=== PATIENT | female | born 1960 | race Caucasian/White ===

== ENCOUNTER 2021-12-06 13:50 | Inpatient (IN) | payer OTHER ==
[2021-12-06] MEDS ORDERED: LACTATED RINGERS SOLUTION 1000 ML INFUS.BAG IV ONE (15:30)
[2021-12-06 15:52] LABS: MCHC 32.3 g/dl (32.0-36.0); PLATELET COUNT 291 10^3/uL (134-434)
[2021-12-06 15:54] LABS: BASO % 0.3 % (0-2.0); EOS % 0.4 % (0-4.5); HEMATOCRIT 17.4 % (32.4-45.2); LYMPH % 6.4 % (8-40); MEAN CELL VOLUME 89.7 fl (80-96); MEAN PLT VOLUME 8.1 fl (7.5-11.1); MONO % 6.7 % (3.8-10.2); NEUT % 86.2 % (42.8-82.8); RBC 1.94 M/mm3 (3.60-5.2); WHITE BLOOD COUNT 17.7 K/mm3 (4.0-10.0)
[2021-12-06 15:58] LABS: INR 1.35 (0.83-1.09); PROTHROMBIN TIME (PATIENT) 15.6 SEC (9.7-13.0)
[2021-12-06 16:01] LABS: ACTIVATED PTT 30.2 SECONDS (25.2-36.5)
[2021-12-06 16:05] LABS: HEMOGLOBIN 5.6 GM/dL (10.7-15.3)
[2021-12-06 16:15] LABS: ALBUMIN 1.6 g/dl (3.4-5.0); CALCIUM 8.5 mg/dL (8.5-10.1)
[2021-12-06 16:16] LABS: MAGNESIUM 2.4 mg/dL (1.8-2.4)
[2021-12-06] MEDS ORDERED: POTASSIUM CHLORIDE TABS 20 MEQ TABLET.ER (FP) PO ONE ×3 (16:16→16:29)
[2021-12-06 16:18] LABS: CREATININE 3.7 mg/dL (0.55-1.3)
[2021-12-06 16:20] LABS: BILIRUBIN,TOTAL 0.6 mg/dL (0.2-1); TOT PROT 5.2 g/dl (6.4-8.2)
[2021-12-06] MEDS: ACETAMINOPHEN 325 MG TABLET (FP) PO PRN (22:53)
[2021-12-06 23:05] LABS: HEMATOCRIT 20.8 % (32.4-45.2); MCH 28.8 pg (25.7-33.7); MCHC 32.3 g/dl (32.0-36.0); MEAN CELL VOLUME 89.3 fl (80-96); MEAN PLT VOLUME 7.9 fl (7.5-11.1); PLATELET COUNT 294 10^3/uL (134-434); RBC 2.33 M/mm3 (3.60-5.2); RDW 17.7 % (11.6-15.6); WHITE BLOOD COUNT 19.1 K/mm3 (4.0-10.0)
[2021-12-06 23:09] LABS: HEMOGLOBIN 6.7 GM/dL (10.7-15.3)
[2021-12-07] MEDS ORDERED: SODIUM CHLORIDE 1,000 ML IV STA ×3 (02:00→04:38)
[2021-12-07 03:43] VITALS: BMI 28.5
[2021-12-07 04:02] LABS: HEMATOCRIT 18.9 % (32.4-45.2); MCH 29.2 pg (25.7-33.7); MCHC 32.4 g/dl (32.0-36.0); MEAN CELL VOLUME 90.1 fl (80-96); MEAN PLT VOLUME 7.9 fl (7.5-11.1); PLATELET COUNT 271 10^3/uL (134-434); RDW 18.4 % (11.6-15.6); WHITE BLOOD COUNT 18.3 K/mm3 (4.0-10.0)
[2021-12-07] MEDS ORDERED: MEROPENEM 1 GM in DEXTROSE 5%-WATER 100 ML IVPB ONE (04:23)
[2021-12-07 04:24] LABS: HEMOGLOBIN 6.1 GM/dL (10.7-15.3)
[2021-12-07 04:29] LABS: RETICULOCYTES 1.65 % (0.5-1.5)
[2021-12-07 05:37] LABS: ERYTHROCYTE SEDIMENTATION RATE > 140 mm/hr (0-30)
[2021-12-07] MEDS ORDERED: VANCOMYCIN PREMIX 1.5 GM 1,500 MG/300 ML BAG IVPB ONE (06:00)
[2021-12-07 06:30] LABS: CALCIUM 8.4 mg/dL (8.5-10.1)
[2021-12-07 06:31] LABS: BLOOD UREA NITROGEN 43.5 mg/dL (7-18); MAGNESIUM 2.2 mg/dL (1.8-2.4)
[2021-12-07] MEDS ORDERED: ONDANSETRON 4 MG/2 ML VIAL IVPUSH ONE (06:42)
[2021-12-07] MEDS ORDERED: AZTREONAM 1 GM VIAL (RESTRICTED TO ID) IVPB ONE (07:13)
[2021-12-07] MEDS ORDERED: SODIUM CHLORIDE IVPB ONE (07:30)
[2021-12-07] MEDS ORDERED: AZTREONAM IVPB ONE (07:30)
[2021-12-07 07:58] LABS: BASO % 0.2 % (0-2.0); EOS % 0.4 % (0-4.5); LYMPH % 6.3 % (8-40); MCH 29.9 pg (25.7-33.7); MCHC 32.5 g/dl (32.0-36.0); MEAN CELL VOLUME 91.9 fl (80-96); MEAN PLT VOLUME 8.2 fl (7.5-11.1); MONO % 6.4 % (3.8-10.2); NEUT % 86.7 % (42.8-82.8); PLATELET COUNT 298 10^3/uL (134-434); RBC 2.28 M/mm3 (3.60-5.2); RDW 18.6 % (11.6-15.6); WHITE BLOOD COUNT 18.7 K/mm3 (4.0-10.0)
[2021-12-07 08:13] LABS: ANISOCYTOSIS 0; MACROCYTOSIS 0
[2021-12-07] MEDS ORDERED: oxyCODONE HCL 5 MG TABLET PO PRN (08:25)
[2021-12-07 08:42] LABS: HEMOGLOBIN 6.8 GM/dL (10.7-15.3)
[2021-12-07] MEDS ORDERED: AZTREONAM 2 GM VIAL (RESTRICTED TO ID) ONE (09:06)
[2021-12-07] MEDS ORDERED: SODIUM CHLORIDE 100 ML IVPB ONE (09:06)
[2021-12-07] MEDS ORDERED: ALBUMIN HUMAN 5% 500 ML IV SOLUTION IV ONE (10:00)
[2021-12-07] MEDS ORDERED: FAMOTIDINE 20 MG TABLET PO SCH (10:00)
[2021-12-07] MEDS ORDERED: PANTOPRAZOLE SODIUM 40 MG VIAL IVPUSH ONE (10:45)
[2021-12-07] MEDS ORDERED: SODIUM CHLORIDE 250 ML IV PRN (14:00)
[2021-12-07] MEDS ORDERED: KETAMINE HCL 200 MG/20 ML VIAL IVPUSH ONE (14:30)
[2021-12-07] MEDS ORDERED: NOREPINEPHRINE BITARTRATE 16,000 MCG in SODIUM CHLORIDE 484 ML IV SCH (15:15)
[2021-12-07] MEDS: ACETAMINOPHEN 325 MG TABLET (FP) PO PRN (21:07)
[2021-12-07] MEDS: ESCITALOPRAM OXALATE 10 MG TABLET PO SCH (21:07)
[2021-12-07] MEDS: ROSUVASTATIN CA 10 MG TABLET PO SCH (21:07)
[2021-12-07] MEDS: QUEtiapine FUMARATE 200 MG TABLET PO SCH (21:39)
[2021-12-08 06:36] LABS: BASO % 0.2 % (0-2.0); EOS % 0.7 % (0-4.5); HEMATOCRIT 22.3 % (32.4-45.2); HEMOGLOBIN 7.4 GM/dL (10.7-15.3); LYMPH % 8.6 % (8-40); MCH 29.3 pg (25.7-33.7); MEAN CELL VOLUME 88.7 fl (80-96); MEAN PLT VOLUME 8.1 fl (7.5-11.1); NEUT % 82.5 % (42.8-82.8); PLATELET COUNT 269 10^3/uL (134-434); RBC 2.52 M/mm3 (3.60-5.2); WHITE BLOOD COUNT 15.5 K/mm3 (4.0-10.0)
[2021-12-08] MEDS: LEVOTHYROXINE NA 25 MCG TABLET (FP) PO SCH (06:41)
[2021-12-08 07:10] LABS: ALBUMIN 1.8 g/dl (3.4-5.0); BLOOD UREA NITROGEN 21.6 mg/dL (7-18); CALCIUM 8.3 mg/dL (8.5-10.1)
[2021-12-08 07:13] LABS: CREATININE 2.1 mg/dL (0.55-1.3); PHOSPHOROUS 1.7 mg/dL (2.5-4.9)
[2021-12-08 07:15] LABS: BILIRUBIN,TOTAL 0.4 mg/dL (0.2-1)
[2021-12-08] MEDS ORDERED: POTASSIUM CHLORIDE TABS 20 MEQ TABLET.ER (FP) PO ONE (08:23)
[2021-12-08] MEDS: CALCIUM ACETATE 667 MG CAPSULE (FP) PO SCH ×3 (09:26→17:46)
[2021-12-08] MEDS: POLYETHYLENE GLYCOL (HEALTHYLAX) 3350 17 GM PACKET PO SCH (09:27)
[2021-12-08] MEDS: ESCITALOPRAM OXALATE 10 MG TABLET PO SCH (09:27)
[2021-12-08] MEDS: MIDODRINE HCL 5 MG TABLET PO SCH ×3 (09:27→17:46)
[2021-12-08] MEDS ORDERED: AZTREONAM 2 GM VIAL (RESTRICTED TO ID) ONE (09:35)
[2021-12-08] MEDS ORDERED: DEXTROSE 5%-WATER 100 ML IVPB ONE (09:35)
[2021-12-08] MEDS: KCL 10 MEQ IVPB 10 MEQ/100 ML INFUS.BAG IVPB SCH ×3 (09:40→12:00)
[2021-12-08] MEDS: ACETAMINOPHEN 1000 MG/100 ML BAG IVPB PRN ×2 (09:40→21:09)
[2021-12-08] MEDS ORDERED: VANCOMYCIN 1 GM/200 ML PREMIX BAG IVPB ONE (10:00)
[2021-12-08] MEDS ORDERED: AZTREONAM 2 GM in DEXTROSE 5%-WATER 100 ML IVPB SCH (10:00)
[2021-12-08] MEDS ORDERED: POTASSIUM PHOSPHATE 30 MM in SODIUM CHLORIDE 250 ML IVPB ONE (10:15)
[2021-12-08] MEDS ORDERED: VANCOMYCIN 1 GM in D5W (PRE-DOCKED) 1,000 MG/250 ML IVPB ONE (13:47)
[2021-12-08] MEDS ORDERED: VANCOMYCIN 1,000 MG in DEXTROSE 5%-WATER - 250 ML IVPB ONE (14:15)
[2021-12-08 14:36] LABS: HEMOGLOBIN 8.3 GM/dL (10.7-15.3); MCH 29.8 pg (25.7-33.7); MCHC 33.4 g/dl (32.0-36.0); MEAN CELL VOLUME 89.1 fl (80-96); PLATELET COUNT 246 10^3/uL (134-434); RDW 17.1 % (11.6-15.6); WHITE BLOOD COUNT 14.8 K/mm3 (4.0-10.0)
[2021-12-08] MEDS ORDERED: SODIUM CHLORIDE 250 ML IV PRN (17:02)
[2021-12-08] MEDS: AMINO ACIDS/PROTEIN HYDROLYS 30 ML LIQUID.PKT PO SCH (17:46)
[2021-12-08] MEDS ORDERED: MELATONIN 5 MG TABLETS PO ONE (19:42)
[2021-12-08] MEDS: ROSUVASTATIN CA 10 MG TABLET PO SCH (21:10)
[2021-12-08] MEDS: QUEtiapine FUMARATE 200 MG TABLET PO SCH (21:10)
[2021-12-09 05:56] LABS: BASO % 0.2 % (0-2.0); EOS % 0.9 % (0-4.5); HEMATOCRIT 24.1 % (32.4-45.2); HEMOGLOBIN 8.1 GM/dL (10.7-15.3); MCH 29.9 pg (25.7-33.7); MCHC 33.5 g/dl (32.0-36.0); MEAN CELL VOLUME 89.1 fl (80-96); MEAN PLT VOLUME 7.8 fl (7.5-11.1); MONO % 7.9 % (3.8-10.2); PLATELET COUNT 242 10^3/uL (134-434); RDW 17.3 % (11.6-15.6)
[2021-12-09] MEDS: LEVOTHYROXINE NA 25 MCG TABLET (FP) PO SCH (06:13)
[2021-12-09 06:16] LABS: CALCIUM 7.9 mg/dL (8.5-10.1)
[2021-12-09 06:17] LABS: BLOOD UREA NITROGEN 30.4 mg/dL (7-18)
[2021-12-09 06:20] LABS: CREATININE 2.8 mg/dL (0.55-1.3); PHOSPHOROUS 3.3 mg/dL (2.5-4.9)
[2021-12-09] MEDS ORDERED: DEXMEDETOMIDINE HCL 200 MCG/2 ML IVPB ONE (07:33)
[2021-12-09] MEDS ORDERED: PROPOFOL 20 ML ONE ×2 (07:56)
[2021-12-09] MEDS ORDERED: EPOETIN ALFA-EPBX 10,000 UNIT/ML VIAL IVPUSH ONE (08:00)
[2021-12-09] MEDS: CALCIUM ACETATE 667 MG CAPSULE (FP) PO SCH ×3 (09:35→17:22)
[2021-12-09] MEDS: ESCITALOPRAM OXALATE 10 MG TABLET PO SCH (09:36)
[2021-12-09] MEDS: AMINO ACIDS/PROTEIN HYDROLYS 30 ML LIQUID.PKT PO SCH ×3 (09:36→17:22)
[2021-12-09] MEDS: POLYETHYLENE GLYCOL (HEALTHYLAX) 3350 17 GM PACKET PO SCH (09:36)
[2021-12-09] MEDS: MIDODRINE HCL 5 MG TABLET PO SCH ×3 (09:36→17:22)
[2021-12-09] MEDS ORDERED: AZTREONAM 2 GM in DEXTROSE 5%-WATER 100 ML IVPB SCH (10:00)
[2021-12-09] MEDS ORDERED: ASCORBIC ACID 500 MG TABLET (FP) PO SCH (10:00)
[2021-12-09] MEDS ORDERED: ONDANSETRON 4 MG/2 ML VIAL ONE (10:35)
[2021-12-09] MEDS ORDERED: ONDANSETRON 4 MG/2 ML VIAL IVPUSH ONE (10:36)
[2021-12-09] MEDS ORDERED: KETAMINE HCL 200 MG/20 ML VIAL ONE (11:08)
[2021-12-09] MEDS ORDERED: PHENYLEPHRINE HCL 10 MG/1 ML SINGLE DOSE VIAL ONE (11:52)
[2021-12-09] MEDS ORDERED: FENTANYL CITRATE/PF 50 MCG/ML VIAL ONE (13:01)
[2021-12-09] MEDS ORDERED: SODIUM CHLORIDE 250 ML IV PRN (13:19)
[2021-12-09] MEDS ORDERED: ACETAMINOPHEN 325 MG TABLET (FP) PO PRN ×2 (13:19→14:03)
[2021-12-09] MEDS ORDERED: oxyCODONE HCL 5 MG TABLET PO PRN (20:00)
[2021-12-09] MEDS: ROSUVASTATIN CA 10 MG TABLET PO SCH (21:31)
[2021-12-09] MEDS: QUEtiapine FUMARATE 200 MG TABLET PO SCH (21:32)
[2021-12-09] MEDS: oxyCODONE HCL 5 MG TABLET PO PRN (22:38)
[2021-12-10] MEDS: LEVOTHYROXINE NA 25 MCG TABLET (FP) PO SCH (06:07)
[2021-12-10 06:45] LABS: HEMATOCRIT 25.6 % (32.4-45.2); HEMOGLOBIN 8.5 GM/dL (10.7-15.3); MCH 29.7 pg (25.7-33.7); MCHC 33.3 g/dl (32.0-36.0); MEAN CELL VOLUME 89.1 fl (80-96); MEAN PLT VOLUME 7.8 fl (7.5-11.1); PLATELET COUNT 247 10^3/uL (134-434); RBC 2.88 M/mm3 (3.60-5.2); RDW 17.1 % (11.6-15.6); WHITE BLOOD COUNT 14.2 K/mm3 (4.0-10.0)
[2021-12-10 07:05] LABS: ALBUMIN 1.6 g/dl (3.4-5.0); BLOOD UREA NITROGEN 27.7 mg/dL (7-18)
[2021-12-10 07:08] LABS: CREATININE 2.1 mg/dL (0.55-1.3); PHOSPHOROUS 1.9 mg/dL (2.5-4.9)
[2021-12-10 07:09] LABS: TOT PROT 4.8 g/dl (6.4-8.2)
[2021-12-10 07:10] LABS: BILIRUBIN,TOTAL 0.3 mg/dL (0.2-1)
[2021-12-10] MEDS: CALCIUM ACETATE 667 MG CAPSULE (FP) PO SCH ×3 (08:29→17:35)
[2021-12-10] MEDS: AMINO ACIDS/PROTEIN HYDROLYS 30 ML LIQUID.PKT PO SCH ×3 (08:29→17:35)
[2021-12-10] MEDS: MIDODRINE HCL 5 MG TABLET PO SCH ×3 (09:19→17:35)
[2021-12-10] MEDS: ESCITALOPRAM OXALATE 10 MG TABLET PO SCH (09:19)
[2021-12-10] MEDS: ASCORBIC ACID 500 MG TABLET (FP) PO SCH (09:19)
[2021-12-10] MEDS: POLYETHYLENE GLYCOL (HEALTHYLAX) 3350 17 GM PACKET PO SCH (09:19)
[2021-12-10] MEDS ORDERED: ROSUVASTATIN CA 20 MG TABLET PO SCH (10:00)
[2021-12-10 10:12] LABS: ANISOCYTOSIS 1+; MACROCYTOSIS 0; OVALOCYTE 2+
[2021-12-10] MEDS: oxyCODONE HCL 5 MG TABLET PO PRN (21:27)
[2021-12-10] MEDS: QUEtiapine FUMARATE 200 MG TABLET PO SCH (21:28)
[2021-12-10] MEDS: ROSUVASTATIN CA 10 MG TABLET PO SCH (21:28)
[2021-12-10 21:33] LABS: EPI CELLS >36 /uL (0-25.1); HYALINE CASTS 19 /uL (0-3.1); PH,URINE 8.5 (5.0-8.0); URINE APPEARANCE CLOUDY; URINE BACTERIA 31 /uL (0-1359); URINE BILIRUBIN NEGATIVE (NEGATIVE); URINE COLOR YELLOW; URINE GLUCOSE (UA) TRACE (NEGATIVE); URINE KETONE NEGATIVE (NEGATIVE); URINE LEUK ESTERASE 3+ (NEGATIVE); URINE NITRITE NEGATIVE (NEGATIVE); URINE PROTEIN 2+ (NEGATIVE); URINE RBC 5 /uL (0-23.9); URINE UROBILINOGEN 0.2 mg/dL (0.2-1.0); URINE WBC 64 /uL (0-25.8)
[2021-12-10 22:31] LABS: YEAST NONE SEEN (NEGATIVE)
[2021-12-11] MEDS: LEVOTHYROXINE NA 25 MCG TABLET (FP) PO SCH (06:00)
[2021-12-11] MEDS: CALCIUM ACETATE 667 MG CAPSULE (FP) PO SCH ×3 (08:00→13:59)
[2021-12-11] MEDS: AMINO ACIDS/PROTEIN HYDROLYS 30 ML LIQUID.PKT PO SCH ×3 (08:00→13:59)
[2021-12-11] MEDS ORDERED: SODIUM CHLORIDE 250 ML IV PRN (09:41)
[2021-12-11] MEDS: MIDODRINE HCL 5 MG TABLET PO SCH ×2 (10:00→13:56)
[2021-12-11] MEDS ORDERED: EPOETIN ALFA-EPBX 10,000 UNIT/ML VIAL SQ ONE (10:30)
[2021-12-11] MEDS: POLYETHYLENE GLYCOL (HEALTHYLAX) 3350 17 GM PACKET PO SCH (11:27)
[2021-12-11] MEDS: ESCITALOPRAM OXALATE 10 MG TABLET PO SCH ×2 (11:28→13:56)
[2021-12-11] MEDS: ASCORBIC ACID 500 MG TABLET (FP) PO SCH ×2 (11:29→13:57)
[2021-12-11 16:51] VITALS: BP 128/65; PULSE 102; TEMP 98.5
== END 2021-12-11 15:00 | DRG 853 ==
LOC: JER 13:50 → JERBED 19:36 → J8W 12-07 02:47 → J2W 12-07 06:37
PROVIDERS: ADMIT Hospitalist; ATTEND Internal Medicine Pulmonary Disease
PROC: 30233N1 Transfusion of Nonautologous Red Blood Cells into Peripheral Vein, Percutaneous Approach (ICD-10-PCS; 2021-12-06)
PROC: 05HN33Z Insertion of Infusion Device into Left Internal Jugular Vein, Percutaneous Approach (ICD-10-PCS; principal; 2021-12-07)
PROC: B544ZZA Ultrasonography of Left Jugular Veins, Guidance (ICD-10-PCS; 2021-12-07)
PROC: 5A1D70Z Performance of Urinary Filtration, Intermittent, Less than 6 Hours Per Day (ICD-10-PCS; 2021-12-07)
PROC: 0JB70ZZ Excision of Back Subcutaneous Tissue and Fascia, Open Approach (ICD-10-PCS; 2021-12-09)
PROC: 2W15X6Z Compression of Back using Pressure Dressing (ICD-10-PCS; 2021-12-09)
PROC: 5A1D70Z Performance of Urinary Filtration, Intermittent, Less than 6 Hours Per Day (ICD-10-PCS; 2021-12-09)
PROC: 5A1D70Z Performance of Urinary Filtration, Intermittent, Less than 6 Hours Per Day (ICD-10-PCS; 2021-12-11)
DX: A41.89 Other specified sepsis (principal); R65.21 Severe sepsis with septic shock; N18.6 End stage renal disease; L89.513 Pressure ulcer of right ankle, stage 3; F31.89 Other bipolar disorder; G82.20 Paraplegia, unspecified; E46 Unspecified protein-calorie malnutrition; G37.3 Acute transverse myelitis in demyelinating disease of central nervous system; I12.0 Hypertensive chronic kidney disease with stage 5 chronic kidney disease or end stage renal disease; D64.9 Anemia, unspecified; L89.150 Pressure ulcer of sacral region, unstageable; J44.9 Chronic obstructive pulmonary disease, unspecified; E78.5 Hyperlipidemia, unspecified; K21.9 Gastro-esophageal reflux disease without esophagitis; E87.6 Hypokalemia; R50.9 Fever, unspecified; I95.9 Hypotension, unspecified; Z68.28 Body mass index [BMI] 28.0-28.9, adult; E88.09 Other disorders of plasma-protein metabolism, not elsewhere classified; Z99.2 Dependence on renal dialysis; B96.1 Klebsiella pneumoniae [K. pneumoniae] as the cause of diseases classified elsewhere; B96.20 Unspecified Escherichia coli [E. coli] as the cause of diseases classified elsewhere; B95.2 Enterococcus as the cause of diseases classified elsewhere; B95.7 Other staphylococcus as the cause of diseases classified elsewhere; L89.892 Pressure ulcer of other site, stage 2; L89.311 Pressure ulcer of right buttock, stage 1; L89.102 Pressure ulcer of unspecified part of back, stage 2
CPT/HCPCS: 36415; 36430; 71045-TC-FY; 80048; 80053; 81003; 82272; 82607; 82746; 82962; 83036; 83605; 83735; 84100; 84443; 84484; 85025; 85027; 85045; 85610; 85651; 85730; 86078; 86140; 86803; 86850; 86900; 86901; 86922; 87040; 87070; 87075; 87076; 87086; 87186; 87205; 87340; 88304-TC; 93005; 93010; 94760; 99291; C9803-CS; E0372; G0480; P9058; Q5106; U0003; U0005

== ENCOUNTER 2022-01-01 03:07 | Inpatient (IN) | payer OTHER ==
[2022-01-01 04:52] LABS: BASO % 0.3 % (0-2.0); EOS % 0.6 % (0-4.5); HEMATOCRIT 17.7 % (32.4-45.2); LYMPH % 11.4 % (8-40); MCH 28.9 pg (25.7-33.7); MCHC 32.1 g/dl (32.0-36.0); MEAN CELL VOLUME 89.9 fl (80-96); MEAN PLT VOLUME 7.6 fl (7.5-11.1); MONO % 7.9 % (3.8-10.2); NEUT % 79.8 % (42.8-82.8); PLATELET COUNT 371 10^3/uL (134-434); RBC 1.97 M/mm3 (3.60-5.2); RDW 16.8 % (11.6-15.6); WHITE BLOOD COUNT 12.8 K/mm3 (4.0-10.0)
[2022-01-01 05:03] LABS: INR 1.22 (0.83-1.09); PROTHROMBIN TIME (PATIENT) 14.1 SEC (9.7-13.0)
[2022-01-01 05:07] LABS: ACTIVATED PTT 30.7 SECONDS (25.2-36.5)
[2022-01-01 05:12] LABS: BLOOD UREA NITROGEN 36.4 mg/dL (7-18); CALCIUM 8.3 mg/dL (8.5-10.1)
[2022-01-01 05:13] LABS: ALBUMIN 1.5 g/dl (3.4-5.0); MAGNESIUM 2.1 mg/dL (1.8-2.4)
[2022-01-01 05:16] LABS: CREATININE 2.9 mg/dL (0.55-1.3); HEMOGLOBIN 5.7 GM/dL (10.7-15.3)
[2022-01-01 05:17] LABS: TOT PROT 5.1 g/dl (6.4-8.2)
[2022-01-01 05:18] LABS: BILIRUBIN,TOTAL 0.3 mg/dL (0.2-1)
[2022-01-01 05:23] LABS: N-TERMINAL BNP 4254.3 pg/ml (5-125)
[2022-01-01] MEDS ORDERED: SODIUM CHLORIDE 250 ML IV PRN (09:29)
[2022-01-01] MEDS ORDERED: EPOETIN ALFA-EPBX 10,000 UNIT/ML VIAL SQ ONE (09:29)
[2022-01-01 20:05] LABS: HEMATOCRIT 25.2 % (32.4-45.2); HEMOGLOBIN 8.4 GM/dL (10.7-15.3); MCH 29.1 pg (25.7-33.7); MCHC 33.2 g/dl (32.0-36.0); MEAN CELL VOLUME 87.7 fl (80-96); MEAN PLT VOLUME 7.7 fl (7.5-11.1); PLATELET COUNT 323 10^3/uL (134-434); RBC 2.87 M/mm3 (3.60-5.2); WHITE BLOOD COUNT 13.4 K/mm3 (4.0-10.0)
[2022-01-01 20:19] LABS: CALCIUM 8.3 mg/dL (8.5-10.1)
[2022-01-01 20:20] LABS: ALBUMIN 1.8 g/dl (3.4-5.0); BLOOD UREA NITROGEN 28.6 mg/dL (7-18)
[2022-01-01 20:23] LABS: CREATININE 2.3 mg/dL (0.55-1.3)
[2022-01-01 20:25] LABS: BILIRUBIN,TOTAL 0.4 mg/dL (0.2-1); TOT PROT 5.2 g/dl (6.4-8.2)
[2022-01-01] MEDS ORDERED: MIDODRINE HCL 5 MG TABLET PO SCH (22:00)
[2022-01-01] MEDS ORDERED: AMITRIPTYLINE HCL 10 MG TABLET PO SCH (22:00)
[2022-01-01] MEDS: ROSUVASTATIN CA 10 MG TABLET PO SCH (22:05)
[2022-01-02] MEDS ORDERED: ACETAMINOPHEN 325 MG TABLET (FP) PO ONE (06:17)
[2022-01-02] MEDS: LEVOTHYROXINE NA 25 MCG TABLET (FP) PO SCH (06:32)
[2022-01-02] MEDS: CALCIUM ACETATE 667 MG CAPSULE (FP) PO SCH ×3 (08:55→17:55)
[2022-01-02 09:40] LABS: BASO % 0.6 % (0-2.0); EOS % 0.6 % (0-4.5); HEMOGLOBIN 9.3 GM/dL (10.7-15.3); LYMPH % 8.8 % (8-40); MCH 29.1 pg (25.7-33.7); MCHC 33.3 g/dl (32.0-36.0); MEAN CELL VOLUME 87.2 fl (80-96); MONO % 6.5 % (3.8-10.2); NEUT % 83.5 % (42.8-82.8); PLATELET COUNT 357 10^3/uL (134-434); RDW 16.2 % (11.6-15.6); WHITE BLOOD COUNT 15.9 K/mm3 (4.0-10.0)
[2022-01-02] MEDS: FAMOTIDINE 20 MG TABLET PO SCH (09:41)
[2022-01-02] MEDS: ESCITALOPRAM OXALATE 10 MG TABLET PO SCH (09:41)
[2022-01-02 09:53] LABS: ALBUMIN 1.7 g/dl (3.4-5.0); BLOOD UREA NITROGEN 24.8 mg/dL (7-18); CALCIUM 8.5 mg/dL (8.5-10.1); MAGNESIUM 2.2 mg/dL (1.8-2.4)
[2022-01-02 09:56] LABS: CREATININE 2.5 mg/dL (0.55-1.3); PHOSPHOROUS 2.4 mg/dL (2.5-4.9)
[2022-01-02 09:58] LABS: BILIRUBIN,TOTAL 0.4 mg/dL (0.2-1); TOT PROT 5.4 g/dl (6.4-8.2)
[2022-01-02] MEDS ORDERED: CALCIUM ACETATE 667 MG CAPSULE (FP) PO SCH (10:00)
[2022-01-02] MEDS ORDERED: QUEtiapine FUMARATE 300 MG TABLET PO SCH (10:00)
[2022-01-02] MEDS ORDERED: MIDODRINE HCL 5 MG TABLET PO SCH (10:00)
[2022-01-02] MEDS ORDERED: LACTULOSE 20 GM/30 ML UDC (FOR ORAL USE ONLY) PO SCH (10:00)
[2022-01-02] MEDS: CYANOCOBALAMIN 1,000 MCG TABLET (FP) PO SCH (11:57)
[2022-01-02] MEDS ORDERED: oxyCODONE HCL 5 MG TABLET PO PRN (13:02)
[2022-01-02] MEDS: MIDODRINE HCL 5 MG TABLET PO SCH ×2 (14:31→18:46)
[2022-01-02] MEDS ORDERED: QUEtiapine FUMARATE 200 MG TABLET PO SCH (22:00)
[2022-01-02] MEDS: ROSUVASTATIN CA 10 MG TABLET PO SCH (22:02)
[2022-01-02] MEDS: AMITRIPTYLINE HCL 10 MG TABLET PO SCH (22:02)
[2022-01-02] MEDS: SENNOSIDES 8.6MG TABLET (FP) PO SCH (22:02)
[2022-01-03] MEDS: LEVOTHYROXINE NA 25 MCG TABLET (FP) PO SCH (06:02)
[2022-01-03] MEDS: CALCIUM ACETATE 667 MG CAPSULE (FP) PO SCH ×3 (08:10→17:51)
[2022-01-03] MEDS: FAMOTIDINE 20 MG TABLET PO SCH (10:04)
[2022-01-03] MEDS: ESCITALOPRAM OXALATE 10 MG TABLET PO SCH (10:04)
[2022-01-03] MEDS: THIAMINE HCL 100 MG TABLET (FP) PO SCH (10:04)
[2022-01-03] MEDS: ZINC SULFATE 220 MG CAPSULE (FP) PO SCH (10:04)
[2022-01-03] MEDS: MIDODRINE HCL 5 MG TABLET PO SCH ×3 (10:05→17:51)
[2022-01-03] MEDS: CYANOCOBALAMIN 1,000 MCG TABLET (FP) PO SCH (10:07)
[2022-01-03] MEDS ORDERED: ACETAMINOPHEN 325 MG TABLET (FP) PO PRN (18:04)
[2022-01-03] MEDS ORDERED: VANCOMYCIN/WATER FOR INJ (PEG) 1,000 MG/200 ML BAG IVPB ONE (20:40)
[2022-01-03] MEDS ORDERED: GENTAMICIN 80 MG PREMIXED IVPB 80 MG/100 ML BAG IVPB ONE (20:45)
[2022-01-03] MEDS ORDERED: QUEtiapine FUMARATE 100 MG TABLET (FP) ONE (21:14)
[2022-01-03] MEDS: AMITRIPTYLINE HCL 10 MG TABLET PO SCH (21:43)
[2022-01-03] MEDS: ROSUVASTATIN CA 10 MG TABLET PO SCH (21:43)
[2022-01-03] MEDS: QUEtiapine FUMARATE 300 MG TABLET PO SCH (21:44)
[2022-01-03] MEDS: SENNOSIDES 8.6MG TABLET (FP) PO SCH (21:44)
[2022-01-04] MEDS: LEVOTHYROXINE NA 25 MCG TABLET (FP) PO SCH (06:05)
[2022-01-04] MEDS: CALCIUM ACETATE 667 MG CAPSULE (FP) PO SCH ×3 (08:02→17:35)
[2022-01-04 09:02] LABS: EPI CELLS 31 /uL (0-25.1); HYALINE CASTS 0 /uL (0-3.1); PH,URINE >= 9.0 (5.0-8.0); URINE APPEARANCE CLOUDY; URINE BACTERIA 563 /uL (0-1359); URINE BILIRUBIN NEGATIVE (NEGATIVE); URINE COLOR YELLOW; URINE GLUCOSE (UA) 1+ (NEGATIVE); URINE KETONE NEGATIVE (NEGATIVE); URINE LEUK ESTERASE TRACE (NEGATIVE); URINE NITRITE NEGATIVE (NEGATIVE); URINE PROTEIN 2+ (NEGATIVE); URINE RBC 118 /uL (0-23.9); URINE UROBILINOGEN 0.2 mg/dL (0.2-1.0); URINE WBC 17 /uL (0-25.8)
[2022-01-04] MEDS: ZINC SULFATE 220 MG CAPSULE (FP) PO SCH (10:02)
[2022-01-04] MEDS: FAMOTIDINE 20 MG TABLET PO SCH (10:02)
[2022-01-04] MEDS: THIAMINE HCL 100 MG TABLET (FP) PO SCH (10:02)
[2022-01-04] MEDS: ESCITALOPRAM OXALATE 10 MG TABLET PO SCH (10:02)
[2022-01-04] MEDS: CYANOCOBALAMIN 1,000 MCG TABLET (FP) PO SCH (10:03)
[2022-01-04] MEDS: MIDODRINE HCL 5 MG TABLET PO SCH ×3 (10:03→17:34)
[2022-01-04] MEDS ORDERED: SODIUM CHLORIDE 250 ML IV PRN (10:22)
[2022-01-04 10:59] LABS: BASO % 0.3 % (0-2.0); HEMATOCRIT 24.5 % (32.4-45.2); HEMOGLOBIN 8.2 GM/dL (10.7-15.3); LYMPH % 9.3 % (8-40); MCH 29.4 pg (25.7-33.7); MCHC 33.4 g/dl (32.0-36.0); MEAN PLT VOLUME 7.4 fl (7.5-11.1); MONO % 7.7 % (3.8-10.2); NEUT % 81.7 % (42.8-82.8); PLATELET COUNT 336 10^3/uL (134-434); RBC 2.79 M/mm3 (3.60-5.2); RDW 16.3 % (11.6-15.6); WHITE BLOOD COUNT 13.5 K/mm3 (4.0-10.0)
[2022-01-04 11:28] LABS: ALBUMIN 1.6 g/dl (3.4-5.0); BLOOD UREA NITROGEN 49.7 mg/dL (7-18); CALCIUM 8.3 mg/dL (8.5-10.1)
[2022-01-04 11:29] LABS: MAGNESIUM 2.1 mg/dL (1.8-2.4)
[2022-01-04 11:31] LABS: CREATININE 3.8 mg/dL (0.55-1.3); PHOSPHOROUS 2.4 mg/dL (2.5-4.9)
[2022-01-04 11:32] LABS: BILIRUBIN,TOTAL 0.4 mg/dL (0.2-1); TOT PROT 4.8 g/dl (6.4-8.2)
[2022-01-04] MEDS ORDERED: EPOETIN ALFA-EPBX 10,000 UNIT/ML VIAL IVPUSH ONE (15:00)
[2022-01-04] MEDS: GENTAMICIN 80 MG PREMIXED IVPB 80 MG/100 ML BAG IVPB ONE (17:34)
[2022-01-04] MEDS ORDERED: QUEtiapine FUMARATE 100 MG TABLET (FP) ONE (22:13)
[2022-01-04] MEDS: QUEtiapine FUMARATE 300 MG TABLET PO SCH (22:19)
[2022-01-04] MEDS: ROSUVASTATIN CA 10 MG TABLET PO SCH (22:19)
[2022-01-04] MEDS: AMITRIPTYLINE HCL 10 MG TABLET PO SCH (22:19)
[2022-01-04] MEDS: SENNOSIDES 8.6MG TABLET (FP) PO SCH (22:19)
[2022-01-05] MEDS: LEVOTHYROXINE NA 25 MCG TABLET (FP) PO SCH (06:21)
[2022-01-05] MEDS: CALCIUM ACETATE 667 MG CAPSULE (FP) PO SCH ×3 (08:27→18:06)
[2022-01-05] MEDS: VITAMIN B COMP W-C 1 EA TABLET (NEPHRO-VITE) PO SCH (10:24)
[2022-01-05] MEDS: ZINC SULFATE 220 MG CAPSULE (FP) PO SCH (10:24)
[2022-01-05] MEDS: ESCITALOPRAM OXALATE 10 MG TABLET PO SCH (10:24)
[2022-01-05] MEDS: FAMOTIDINE 20 MG TABLET PO SCH (10:24)
[2022-01-05] MEDS: THIAMINE HCL 100 MG TABLET (FP) PO SCH (10:24)
[2022-01-05] MEDS: MIDODRINE HCL 5 MG TABLET PO SCH ×3 (10:27→18:06)
[2022-01-05] MEDS: CYANOCOBALAMIN 1,000 MCG TABLET (FP) PO SCH (10:27)
[2022-01-05 11:30] LABS: HEMATOCRIT 28.5 % (32.4-45.2); HEMOGLOBIN 9.3 GM/dL (10.7-15.3); MCH 29.6 pg (25.7-33.7); MCHC 32.5 g/dl (32.0-36.0); MEAN CELL VOLUME 90.9 fl (80-96); MEAN PLT VOLUME 8.2 fl (7.5-11.1); PLATELET COUNT 302 10^3/uL (134-434); RBC 3.14 M/mm3 (3.60-5.2); RDW 16.6 % (11.6-15.6); WHITE BLOOD COUNT 14.9 K/mm3 (4.0-10.0)
[2022-01-05 11:40] LABS: ALBUMIN 1.8 g/dl (3.4-5.0); BLOOD UREA NITROGEN 30.4 mg/dL (7-18); CALCIUM 8.9 mg/dL (8.5-10.1); MAGNESIUM 2.2 mg/dL (1.8-2.4)
[2022-01-05 11:43] LABS: CREATININE 2.7 mg/dL (0.55-1.3); PHOSPHOROUS 1.9 mg/dL (2.5-4.9)
[2022-01-05 11:45] LABS: BILIRUBIN,TOTAL 0.4 mg/dL (0.2-1); TOT PROT 5.5 g/dl (6.4-8.2)
[2022-01-05] MEDS ORDERED: VANCOMYCIN/WATER FOR INJ (PEG) 1,000 MG/200 ML BAG IVPB ONE (12:01)
[2022-01-05] MEDS ORDERED: cefTRIAXone SODIUM 1 GM VIAL ONE (14:06)
[2022-01-05] MEDS ORDERED: DEXTROSE 5%-WATER - 50 ML IVPB ONE (14:06)
[2022-01-05] MEDS: CEFTRIAXONE 1 GM in DEXTROSE 5%-WATER - 50 ML IVPB SCH (14:07)
[2022-01-05] MEDS: SENNOSIDES 8.6MG TABLET (FP) PO SCH (21:54)
[2022-01-05] MEDS: QUEtiapine FUMARATE 300 MG TABLET PO SCH (21:54)
[2022-01-05] MEDS: AMITRIPTYLINE HCL 10 MG TABLET PO SCH (21:54)
[2022-01-05] MEDS: ROSUVASTATIN CA 10 MG TABLET PO SCH (21:54)
[2022-01-06] MEDS: LEVOTHYROXINE NA 25 MCG TABLET (FP) PO SCH (06:40)
[2022-01-06] MEDS: CALCIUM ACETATE 667 MG CAPSULE (FP) PO SCH ×3 (08:26→18:08)
[2022-01-06] MEDS ORDERED: DEXTROSE 5%-WATER - 50 ML IVPB ONE (09:43)
[2022-01-06] MEDS ORDERED: cefTRIAXone SODIUM 1 GM VIAL ONE (09:43)
[2022-01-06] MEDS: CEFTRIAXONE 1 GM in DEXTROSE 5%-WATER - 50 ML IVPB SCH (09:44)
[2022-01-06] MEDS: ZINC SULFATE 220 MG CAPSULE (FP) PO SCH (10:32)
[2022-01-06] MEDS: VITAMIN B COMP W-C 1 EA TABLET (NEPHRO-VITE) PO SCH (10:32)
[2022-01-06] MEDS: MIDODRINE HCL 5 MG TABLET PO SCH ×3 (10:32→18:08)
[2022-01-06] MEDS: ESCITALOPRAM OXALATE 10 MG TABLET PO SCH (10:32)
[2022-01-06] MEDS: FAMOTIDINE 20 MG TABLET PO SCH (10:32)
[2022-01-06] MEDS: THIAMINE HCL 100 MG TABLET (FP) PO SCH (10:33)
[2022-01-06] MEDS: CYANOCOBALAMIN 1,000 MCG TABLET (FP) PO SCH (10:33)
[2022-01-06 10:39] LABS: HEMATOCRIT 23.7 % (32.4-45.2); HEMOGLOBIN 7.7 GM/dL (10.7-15.3); MCH 29.1 pg (25.7-33.7); MCHC 32.6 g/dl (32.0-36.0); MEAN CELL VOLUME 89.4 fl (80-96); MEAN PLT VOLUME 7.1 fl (7.5-11.1); PLATELET COUNT 297 10^3/uL (134-434); RBC 2.65 M/mm3 (3.60-5.2); RDW 16.6 % (11.6-15.6); WHITE BLOOD COUNT 11.6 K/mm3 (4.0-10.0)
[2022-01-06 11:09] LABS: CALCIUM 8.4 mg/dL (8.5-10.1)
[2022-01-06 11:12] LABS: CREATININE 3.1 mg/dL (0.55-1.3)
[2022-01-06 11:13] LABS: PHOSPHOROUS 2.2 mg/dL (2.5-4.9)
[2022-01-06] MEDS ORDERED: SODIUM CHLORIDE 250 ML IV PRN (14:45)
[2022-01-06] MEDS ORDERED: EPOETIN ALFA-EPBX 10,000 UNIT/ML VIAL IVPUSH ONE (15:30)
[2022-01-06] MEDS ORDERED: GENTAMICIN 80 MG PREMIXED IVPB 80 MG/100 ML BAG IVPB ONE (16:26)
[2022-01-06] MEDS ORDERED: GENTAMICIN IVPB ONE (17:00)
[2022-01-06] MEDS ORDERED: SODIUM CHLORIDE IVPB ONE (17:00)
[2022-01-06] MEDS ORDERED: QUEtiapine FUMARATE 100 MG TABLET (FP) ONE (21:15)
[2022-01-06] MEDS: QUEtiapine FUMARATE 300 MG TABLET PO SCH (21:27)
[2022-01-06] MEDS: ROSUVASTATIN CA 10 MG TABLET PO SCH (21:27)
[2022-01-06] MEDS: AMITRIPTYLINE HCL 10 MG TABLET PO SCH (21:27)
[2022-01-06] MEDS: SENNOSIDES 8.6MG TABLET (FP) PO SCH (21:27)
[2022-01-07] MEDS: LEVOTHYROXINE NA 25 MCG TABLET (FP) PO SCH (06:08)
[2022-01-07] MEDS: CALCIUM ACETATE 667 MG CAPSULE (FP) PO SCH ×3 (07:51→16:53)
[2022-01-07] MEDS: THIAMINE HCL 100 MG TABLET (FP) PO SCH (09:18)
[2022-01-07] MEDS: VITAMIN B COMP W-C 1 EA TABLET (NEPHRO-VITE) PO SCH (09:18)
[2022-01-07] MEDS: FAMOTIDINE 20 MG TABLET PO SCH (09:18)
[2022-01-07] MEDS: ESCITALOPRAM OXALATE 10 MG TABLET PO SCH (09:18)
[2022-01-07] MEDS: ZINC SULFATE 220 MG CAPSULE (FP) PO SCH (09:18)
[2022-01-07] MEDS: MIDODRINE HCL 5 MG TABLET PO SCH ×3 (09:19→17:42)
[2022-01-07] MEDS: CYANOCOBALAMIN 1,000 MCG TABLET (FP) PO SCH (09:20)
[2022-01-07] MEDS ORDERED: SUCCINYLCHOLINE CHLORIDE 200 MG/10 ML SYRINGE ONE (09:24)
[2022-01-07] MEDS ORDERED: PROPOFOL 20 ML ONE ×2 (09:26)
[2022-01-07] MEDS ORDERED: KETAMINE HCL 200 MG/20 ML VIAL ONE (09:26)
[2022-01-07] MEDS ORDERED: DEXTROSE 5%-WATER - 50 ML IVPB ONE (09:28)
[2022-01-07] MEDS ORDERED: cefTRIAXone SODIUM 1 GM VIAL ONE (09:28)
[2022-01-07] MEDS: CEFTRIAXONE 1 GM in DEXTROSE 5%-WATER - 50 ML IVPB SCH (09:29)
[2022-01-07] MEDS ORDERED: LIDOCAINE HCL 1%, 10 MG/ML (20ML VIAL) ONE (09:31)
[2022-01-07] MEDS ORDERED: ACETAMINOPHEN 325 MG TABLET (FP) PO PRN (12:35)
[2022-01-07] MEDS ORDERED: ONDANSETRON 4 MG/2 ML VIAL ONE (12:43)
[2022-01-07] MEDS ORDERED: ONDANSETRON 4 MG/2 ML VIAL IVPUSH ONE (13:03)
[2022-01-07] MEDS ORDERED: VANCOMYCIN/WATER FOR INJ (PEG) 1,000 MG/200 ML BAG IVPB ONE (13:03)
[2022-01-07 17:53] LABS: HEMATOCRIT 23.8 % (32.4-45.2); HEMOGLOBIN 7.7 GM/dL (10.7-15.3); MCH 29.3 pg (25.7-33.7); MCHC 32.6 g/dl (32.0-36.0); MEAN CELL VOLUME 89.8 fl (80-96); MEAN PLT VOLUME 7.4 fl (7.5-11.1); PLATELET COUNT 281 10^3/uL (134-434); RBC 2.65 M/mm3 (3.60-5.2); RDW 16.5 % (11.6-15.6); WHITE BLOOD COUNT 12.1 K/mm3 (4.0-10.0)
[2022-01-07 18:12] LABS: CALCIUM 8.1 mg/dL (8.5-10.1)
[2022-01-07 18:13] LABS: MAGNESIUM 1.9 mg/dL (1.8-2.4)
[2022-01-07 18:16] LABS: CREATININE 2.8 mg/dL (0.55-1.3); PHOSPHOROUS 2.2 mg/dL (2.5-4.9)
[2022-01-07] MEDS ORDERED: QUEtiapine FUMARATE 100 MG TABLET (FP) ONE (21:01)
[2022-01-07] MEDS: SENNOSIDES 8.6MG TABLET (FP) PO SCH (21:31)
[2022-01-07] MEDS: ROSUVASTATIN CA 10 MG TABLET PO SCH (21:31)
[2022-01-07] MEDS: AMITRIPTYLINE HCL 10 MG TABLET PO SCH (21:32)
[2022-01-07] MEDS: QUEtiapine FUMARATE 300 MG TABLET PO SCH (21:33)
[2022-01-07 21:44] VITALS: BMI 28.8
[2022-01-08] MEDS: LEVOTHYROXINE NA 25 MCG TABLET (FP) PO SCH (06:39)
[2022-01-08] MEDS: CALCIUM ACETATE 667 MG CAPSULE (FP) PO SCH ×4 (07:51→18:20)
[2022-01-08] MEDS: AMINO ACIDS/PROTEIN HYDROLYS 30 ML LIQUID.PKT PO SCH ×3 (07:51→18:03)
[2022-01-08] MEDS ORDERED: SODIUM CHLORIDE 250 ML IV PRN (07:52)
[2022-01-08 09:51] LABS: HEMATOCRIT 21.9 % (32.4-45.2); MCH 29.2 pg (25.7-33.7); MCHC 31.9 g/dl (32.0-36.0); MEAN CELL VOLUME 91.3 fl (80-96); MEAN PLT VOLUME 8.4 fl (7.5-11.1); PLATELET COUNT 290 10^3/uL (134-434); RDW 17.3 % (11.6-15.6)
[2022-01-08] MEDS ORDERED: EPOETIN ALFA-EPBX 4,000 UNIT/ML VIAL IVPUSH ONE (10:00)
[2022-01-08] MEDS ORDERED: EPOETIN ALFA-EPBX 10,000 UNIT/ML VIAL IVPUSH ONE (10:45)
[2022-01-08 10:54] LABS: BLOOD UREA NITROGEN 54.5 mg/dL (7-18)
[2022-01-08 10:55] LABS: MAGNESIUM 1.8 mg/dL (1.8-2.4)
[2022-01-08 10:57] LABS: CREATININE 3.4 mg/dL (0.55-1.3); PHOSPHOROUS 2.8 mg/dL (2.5-4.9)
[2022-01-08] MEDS ORDERED: DEXTROSE 5%-WATER - 50 ML IVPB ONE (12:09)
[2022-01-08] MEDS ORDERED: cefTRIAXone SODIUM 1 GM VIAL ONE (12:09)
[2022-01-08] MEDS: FAMOTIDINE 20 MG TABLET PO SCH (12:11)
[2022-01-08] MEDS: THIAMINE HCL 100 MG TABLET (FP) PO SCH (12:11)
[2022-01-08] MEDS: ESCITALOPRAM OXALATE 10 MG TABLET PO SCH (12:12)
[2022-01-08] MEDS: ZINC SULFATE 220 MG CAPSULE (FP) PO SCH (12:12)
[2022-01-08] MEDS: VITAMIN B COMP W-C 1 EA TABLET (NEPHRO-VITE) PO SCH (12:12)
[2022-01-08] MEDS: CYANOCOBALAMIN 1,000 MCG TABLET (FP) PO SCH (12:13)
[2022-01-08] MEDS: MIDODRINE HCL 5 MG TABLET PO SCH ×3 (12:13→18:21)
[2022-01-08] MEDS: CEFTRIAXONE 1 GM in DEXTROSE 5%-WATER - 50 ML IVPB SCH (12:13)
[2022-01-08] MEDS: oxyCODONE HCL 5 MG TABLET PO PRN ×2 (12:47→21:18)
[2022-01-08] MEDS ORDERED: GENTAMICIN 80 MG PREMIXED IVPB 80 MG/100 ML BAG IVPB ONE (15:30)
[2022-01-08] MEDS ORDERED: ACETAMINOPHEN 325 MG TABLET (FP) PO PRN (18:15)
[2022-01-08] MEDS: AMITRIPTYLINE HCL 10 MG TABLET PO SCH (21:19)
[2022-01-08] MEDS: ROSUVASTATIN CA 10 MG TABLET PO SCH (21:19)
[2022-01-08] MEDS: QUEtiapine FUMARATE 300 MG TABLET PO SCH (21:19)
[2022-01-08] MEDS: SENNOSIDES 8.6MG TABLET (FP) PO SCH (21:19)
[2022-01-09] MEDS: LEVOTHYROXINE NA 25 MCG TABLET (FP) PO SCH (06:04)
[2022-01-09] MEDS: FAMOTIDINE 20 MG TABLET PO SCH (09:08)
[2022-01-09] MEDS: CALCIUM ACETATE 667 MG CAPSULE (FP) PO SCH ×3 (09:08→16:57)
[2022-01-09] MEDS: ESCITALOPRAM OXALATE 10 MG TABLET PO SCH (09:08)
[2022-01-09] MEDS: VITAMIN B COMP W-C 1 EA TABLET (NEPHRO-VITE) PO SCH (09:08)
[2022-01-09] MEDS: AMINO ACIDS/PROTEIN HYDROLYS 30 ML LIQUID.PKT PO SCH ×2 (09:08→16:57)
[2022-01-09] MEDS: ZINC SULFATE 220 MG CAPSULE (FP) PO SCH (09:08)
[2022-01-09] MEDS: THIAMINE HCL 100 MG TABLET (FP) PO SCH (09:08)
[2022-01-09] MEDS: CYANOCOBALAMIN 1,000 MCG TABLET (FP) PO SCH (09:09)
[2022-01-09] MEDS: MIDODRINE HCL 5 MG TABLET PO SCH ×3 (09:09→17:00)
[2022-01-09] MEDS ORDERED: cefTRIAXone SODIUM 1 GM VIAL ONE (09:16)
[2022-01-09] MEDS ORDERED: DEXTROSE 5%-WATER - 50 ML IVPB ONE (09:16)
[2022-01-09] MEDS: CEFTRIAXONE 1 GM in DEXTROSE 5%-WATER - 50 ML IVPB SCH (09:23)
[2022-01-09] MEDS: oxyCODONE HCL 5 MG TABLET PO PRN (09:28)
[2022-01-09] MEDS ORDERED: DAPTOMYCIN 320 MG in SODIUM CHLORIDE 50 ML IVPB ONE (15:30)
[2022-01-09] MEDS ORDERED: QUEtiapine FUMARATE 100 MG TABLET (FP) ONE (22:10)
[2022-01-09] MEDS: QUEtiapine FUMARATE 300 MG TABLET PO SCH (22:36)
[2022-01-09] MEDS: ROSUVASTATIN CA 10 MG TABLET PO SCH (22:36)
[2022-01-09] MEDS: AMITRIPTYLINE HCL 10 MG TABLET PO SCH (22:36)
[2022-01-09] MEDS: SENNOSIDES 8.6MG TABLET (FP) PO SCH (22:36)
[2022-01-10] MEDS: LEVOTHYROXINE NA 25 MCG TABLET (FP) PO SCH (06:53)
[2022-01-10] MEDS: AMINO ACIDS/PROTEIN HYDROLYS 30 ML LIQUID.PKT PO SCH ×2 (07:57→16:56)
[2022-01-10] MEDS: CALCIUM ACETATE 667 MG CAPSULE (FP) PO SCH ×3 (07:57→16:56)
[2022-01-10 09:32] LABS: BASO % 0.6 % (0-2.0); EOS % 1.2 % (0-4.5); HEMATOCRIT 26.8 % (32.4-45.2); HEMOGLOBIN 8.9 GM/dL (10.7-15.3); LYMPH % 13.6 % (8-40); MCHC 33.4 g/dl (32.0-36.0); MEAN CELL VOLUME 89.9 fl (80-96); MEAN PLT VOLUME 7.8 fl (7.5-11.1); MONO % 6.6 % (3.8-10.2); PLATELET COUNT 292 10^3/uL (134-434); RBC 2.98 M/mm3 (3.60-5.2); RDW 16.3 % (11.6-15.6); WHITE BLOOD COUNT 12.7 K/mm3 (4.0-10.0)
[2022-01-10 10:01] LABS: CALCIUM 8.7 mg/dL (8.5-10.1)
[2022-01-10 10:02] LABS: BLOOD UREA NITROGEN 40.2 mg/dL (7-18); MAGNESIUM 2.1 mg/dL (1.8-2.4)
[2022-01-10 10:05] LABS: PHOSPHOROUS 3.4 mg/dL (2.5-4.9)
[2022-01-10 10:06] LABS: CREATININE 3.1 mg/dL (0.55-1.3)
[2022-01-10] MEDS: ESCITALOPRAM OXALATE 10 MG TABLET PO SCH (10:14)
[2022-01-10] MEDS: ZINC SULFATE 220 MG CAPSULE (FP) PO SCH (10:14)
[2022-01-10] MEDS: MIDODRINE HCL 5 MG TABLET PO SCH ×3 (10:14→17:18)
[2022-01-10] MEDS: CYANOCOBALAMIN 1,000 MCG TABLET (FP) PO SCH (10:15)
[2022-01-10] MEDS: THIAMINE HCL 100 MG TABLET (FP) PO SCH (10:15)
[2022-01-10] MEDS: VITAMIN B COMP W-C 1 EA TABLET (NEPHRO-VITE) PO SCH (10:15)
[2022-01-10] MEDS: FAMOTIDINE 20 MG TABLET PO SCH (10:15)
[2022-01-10] MEDS ORDERED: cefTRIAXone SODIUM 1 GM VIAL ONE (10:21)
[2022-01-10] MEDS ORDERED: DEXTROSE 5%-WATER - 50 ML IVPB ONE (10:21)
[2022-01-10] MEDS: CEFTRIAXONE 1 GM in DEXTROSE 5%-WATER - 50 ML IVPB SCH (10:41)
[2022-01-10] MEDS ORDERED: GENTAMICIN 80 MG PREMIXED IVPB 80 MG/100 ML BAG IVPB ONE (16:00)
[2022-01-10] MEDS ORDERED: SODIUM CHLORIDE 250 ML IV PRN (16:20)
[2022-01-10] MEDS ORDERED: QUEtiapine FUMARATE 100 MG TABLET (FP) ONE (23:41)
[2022-01-10] MEDS: SENNOSIDES 8.6MG TABLET (FP) PO SCH (23:42)
[2022-01-10] MEDS: ROSUVASTATIN CA 10 MG TABLET PO SCH (23:42)
[2022-01-10] MEDS: QUEtiapine FUMARATE 300 MG TABLET PO SCH (23:42)
[2022-01-10] MEDS: AMITRIPTYLINE HCL 10 MG TABLET PO SCH (23:42)
[2022-01-11] MEDS: LEVOTHYROXINE NA 25 MCG TABLET (FP) PO SCH (07:01)
[2022-01-11 09:22] LABS: WHITE BLOOD COUNT 13.8 K/mm3 (4.0-10.0)
[2022-01-11 09:23] LABS: HEMATOCRIT 27.4 % (32.4-45.2); HEMOGLOBIN 8.9 GM/dL (10.7-15.3); MCH 29.8 pg (25.7-33.7); MCHC 32.6 g/dl (32.0-36.0); MEAN CELL VOLUME 91.4 fl (80-96); MEAN PLT VOLUME 7.6 fl (7.5-11.1); PLATELET COUNT 286 10^3/uL (134-434); RDW 17.1 % (11.6-15.6)
[2022-01-11] MEDS: AMINO ACIDS/PROTEIN HYDROLYS 30 ML LIQUID.PKT PO SCH ×2 (09:37→18:27)
[2022-01-11] MEDS: CALCIUM ACETATE 667 MG CAPSULE (FP) PO SCH ×3 (09:37→18:27)
[2022-01-11 09:40] LABS: BLOOD UREA NITROGEN 51.7 mg/dL (7-18); CALCIUM 8.5 mg/dL (8.5-10.1); MAGNESIUM 2.2 mg/dL (1.8-2.4)
[2022-01-11 09:43] LABS: PHOSPHOROUS 4.2 mg/dL (2.5-4.9)
[2022-01-11 09:44] LABS: CREATININE 3.5 mg/dL (0.55-1.3)
[2022-01-11] MEDS: MIDODRINE HCL 5 MG TABLET PO SCH ×4 (10:00→18:37)
[2022-01-11] MEDS ORDERED: cefTRIAXone SODIUM 1 GM VIAL ONE (12:00)
[2022-01-11] MEDS ORDERED: DEXTROSE 5%-WATER - 50 ML IVPB ONE (12:00)
[2022-01-11] MEDS ORDERED: EPOETIN ALFA-EPBX 10,000 UNIT/ML VIAL IVPUSH ONE (12:00)
[2022-01-11] MEDS: CEFTRIAXONE 1 GM in DEXTROSE 5%-WATER - 50 ML IVPB SCH (13:13)
[2022-01-11] MEDS: FAMOTIDINE 20 MG TABLET PO SCH (13:13)
[2022-01-11] MEDS: ESCITALOPRAM OXALATE 10 MG TABLET PO SCH (13:13)
[2022-01-11] MEDS: CYANOCOBALAMIN 1,000 MCG TABLET (FP) PO SCH (13:14)
[2022-01-11] MEDS: ZINC SULFATE 220 MG CAPSULE (FP) PO SCH (13:14)
[2022-01-11] MEDS: VITAMIN B COMP W-C 1 EA TABLET (NEPHRO-VITE) PO SCH (13:14)
[2022-01-11] MEDS: THIAMINE HCL 100 MG TABLET (FP) PO SCH (13:14)
[2022-01-11] MEDS ORDERED: DAPTOMYCIN 320 MG in SODIUM CHLORIDE 50 ML IVPB ONE (15:30)
[2022-01-11] MEDS ORDERED: QUEtiapine FUMARATE 100 MG TABLET (FP) ONE (21:47)
[2022-01-11] MEDS: AMITRIPTYLINE HCL 10 MG TABLET PO SCH ×2 (21:51→21:54)
[2022-01-11] MEDS: SENNOSIDES 8.6MG TABLET (FP) PO SCH ×2 (21:51→21:55)
[2022-01-11] MEDS: ROSUVASTATIN CA 10 MG TABLET PO SCH ×2 (21:51→21:54)
[2022-01-11] MEDS: QUEtiapine FUMARATE 300 MG TABLET PO SCH ×2 (21:51→21:55)
[2022-01-12 05:38] VITALS: RESP 18
[2022-01-12] MEDS: LEVOTHYROXINE NA 25 MCG TABLET (FP) PO SCH (06:32)
[2022-01-12] MEDS: CALCIUM ACETATE 667 MG CAPSULE (FP) PO SCH ×3 (08:18→17:29)
[2022-01-12] MEDS: AMINO ACIDS/PROTEIN HYDROLYS 30 ML LIQUID.PKT PO SCH ×2 (08:18→17:29)
[2022-01-12 09:31] LABS: HEMATOCRIT 27.4 % (32.4-45.2); MCH 29.7 pg (25.7-33.7); MCHC 32.9 g/dl (32.0-36.0); MEAN CELL VOLUME 90.1 fl (80-96); MEAN PLT VOLUME 7.5 fl (7.5-11.1); PLATELET COUNT 279 10^3/uL (134-434); RBC 3.04 M/mm3 (3.60-5.2); RDW 16.8 % (11.6-15.6); WHITE BLOOD COUNT 10.6 K/mm3 (4.0-10.0)
[2022-01-12] MEDS: MIDODRINE HCL 5 MG TABLET PO SCH ×3 (10:04→17:29)
[2022-01-12] MEDS: THIAMINE HCL 100 MG TABLET (FP) PO SCH (10:04)
[2022-01-12] MEDS: ZINC SULFATE 220 MG CAPSULE (FP) PO SCH (10:04)
[2022-01-12] MEDS: FAMOTIDINE 20 MG TABLET PO SCH (10:04)
[2022-01-12] MEDS: CYANOCOBALAMIN 1,000 MCG TABLET (FP) PO SCH (10:04)
[2022-01-12] MEDS: oxyCODONE HCL 5 MG TABLET PO PRN (10:04)
[2022-01-12 10:05] LABS: CALCIUM 8.3 mg/dL (8.5-10.1)
[2022-01-12] MEDS: VITAMIN B COMP W-C 1 EA TABLET (NEPHRO-VITE) PO SCH (10:05)
[2022-01-12] MEDS: ESCITALOPRAM OXALATE 10 MG TABLET PO SCH (10:05)
[2022-01-12 10:09] LABS: CREATININE 2.3 mg/dL (0.55-1.3); PHOSPHOROUS 2.8 mg/dL (2.5-4.9)
[2022-01-12 10:10] LABS: BILIRUBIN,TOTAL 0.3 mg/dL (0.2-1)
[2022-01-12 10:21] LABS: BLOOD UREA NITROGEN 25.5 mg/dL (7-18)
[2022-01-12] MEDS: CEFTRIAXONE 1 GM in DEXTROSE 5%-WATER - 50 ML IVPB SCH (10:50)
[2022-01-12] MEDS ORDERED: GENTAMICIN 80 MG PREMIXED IVPB 80 MG/100 ML BAG IVPB ONE (13:23)
[2022-01-12] MEDS ORDERED: QUEtiapine FUMARATE 100 MG TABLET (FP) ONE (21:58)
[2022-01-12] MEDS: QUEtiapine FUMARATE 300 MG TABLET PO SCH ×2 (22:13→22:26)
[2022-01-12] MEDS: SENNOSIDES 8.6MG TABLET (FP) PO SCH ×2 (22:13→22:27)
[2022-01-12] MEDS: AMITRIPTYLINE HCL 10 MG TABLET PO SCH ×2 (22:13→22:27)
[2022-01-12] MEDS: ROSUVASTATIN CA 10 MG TABLET PO SCH ×2 (22:13→22:27)
[2022-01-13] MEDS: LEVOTHYROXINE NA 25 MCG TABLET (FP) PO SCH (06:43)
[2022-01-13] MEDS: AMINO ACIDS/PROTEIN HYDROLYS 30 ML LIQUID.PKT PO SCH ×2 (08:29→17:16)
[2022-01-13] MEDS: CALCIUM ACETATE 667 MG CAPSULE (FP) PO SCH ×4 (08:29→17:12)
[2022-01-13] MEDS ORDERED: SODIUM CHLORIDE 250 ML IV PRN (08:49)
[2022-01-13] MEDS ORDERED: EPOETIN ALFA-EPBX 10,000 UNIT/ML VIAL SQ ONE (09:30)
[2022-01-13 10:02] LABS: HEMATOCRIT 28.6 % (32.4-45.2); HEMOGLOBIN 9.4 GM/dL (10.7-15.3); MCH 29.8 pg (25.7-33.7); MCHC 32.8 g/dl (32.0-36.0); MEAN CELL VOLUME 90.9 fl (80-96); MEAN PLT VOLUME 7.5 fl (7.5-11.1); PLATELET COUNT 287 10^3/uL (134-434); RBC 3.15 M/mm3 (3.60-5.2); RDW 17.2 % (11.6-15.6); WHITE BLOOD COUNT 10.5 K/mm3 (4.0-10.0)
[2022-01-13 10:30] LABS: MAGNESIUM 2.2 mg/dL (1.8-2.4)
[2022-01-13 10:34] LABS: TOT PROT 4.9 g/dl (6.4-8.2)
[2022-01-13 10:41] LABS: BILIRUBIN,TOTAL 0.4 mg/dL (0.2-1); BLOOD UREA NITROGEN 35.7 mg/dL (7-18); CALCIUM 8.4 mg/dL (8.5-10.1); PHOSPHOROUS 3.6 mg/dL (2.5-4.9)
[2022-01-13] MEDS: ESCITALOPRAM OXALATE 10 MG TABLET PO SCH (12:31)
[2022-01-13] MEDS: FAMOTIDINE 20 MG TABLET PO SCH (12:32)
[2022-01-13] MEDS: THIAMINE HCL 100 MG TABLET (FP) PO SCH (12:32)
[2022-01-13] MEDS: MIDODRINE HCL 5 MG TABLET PO SCH ×3 (12:33→17:12)
[2022-01-13] MEDS: CYANOCOBALAMIN 1,000 MCG TABLET (FP) PO SCH (12:33)
[2022-01-13] MEDS: ZINC SULFATE 220 MG CAPSULE (FP) PO SCH (12:34)
[2022-01-13] MEDS: VITAMIN B COMP W-C 1 EA TABLET (NEPHRO-VITE) PO SCH (12:34)
[2022-01-13] MEDS: CEFTRIAXONE 1 GM in DEXTROSE 5%-WATER - 50 ML IVPB SCH (13:11)
[2022-01-13] MEDS: SENNOSIDES 8.6MG TABLET (FP) PO SCH (21:22)
[2022-01-13] MEDS: AMITRIPTYLINE HCL 10 MG TABLET PO SCH (21:22)
[2022-01-13] MEDS: ROSUVASTATIN CA 10 MG TABLET PO SCH (21:22)
[2022-01-13] MEDS: QUEtiapine FUMARATE 300 MG TABLET PO SCH (21:22)
[2022-01-14 03:06] VITALS: BP 148/73; PULSE 87; TEMP 99.9
[2022-01-14] MEDS: LEVOTHYROXINE NA 25 MCG TABLET (FP) PO SCH (06:32)
[2022-01-14] MEDS: ESCITALOPRAM OXALATE 10 MG TABLET PO SCH (09:39)
[2022-01-14] MEDS: THIAMINE HCL 100 MG TABLET (FP) PO SCH (09:39)
[2022-01-14] MEDS: CYANOCOBALAMIN 1,000 MCG TABLET (FP) PO SCH (09:39)
[2022-01-14] MEDS: FAMOTIDINE 20 MG TABLET PO SCH (09:39)
[2022-01-14] MEDS: AMINO ACIDS/PROTEIN HYDROLYS 30 ML LIQUID.PKT PO SCH (09:39)
[2022-01-14] MEDS: MIDODRINE HCL 5 MG TABLET PO SCH ×2 (09:39→14:21)
[2022-01-14] MEDS: CALCIUM ACETATE 667 MG CAPSULE (FP) PO SCH ×2 (09:39→12:30)
[2022-01-14] MEDS: ZINC SULFATE 220 MG CAPSULE (FP) PO SCH (09:39)
[2022-01-14] MEDS: VITAMIN B COMP W-C 1 EA TABLET (NEPHRO-VITE) PO SCH (09:39)
== END 2022-01-14 14:44 | DRG 673 ==
LOC: JER 03:07 → JERBED 03:30 → J6S 21:54
PROVIDERS: ADMIT Internal Medicine; ATTEND Internal Medicine
PROC: 30233N1 Transfusion of Nonautologous Red Blood Cells into Peripheral Vein, Percutaneous Approach (ICD-10-PCS; principal; 2022-01-01)
PROC: 5A1D70Z Performance of Urinary Filtration, Intermittent, Less than 6 Hours Per Day (ICD-10-PCS; 2022-01-01)
PROC: 5A1D70Z Performance of Urinary Filtration, Intermittent, Less than 6 Hours Per Day (ICD-10-PCS; 2022-01-04)
PROC: 5A1D70Z Performance of Urinary Filtration, Intermittent, Less than 6 Hours Per Day (ICD-10-PCS; 2022-01-06)
PROC: 0JB70ZZ Excision of Back Subcutaneous Tissue and Fascia, Open Approach (ICD-10-PCS; 2022-01-07)
PROC: 0QB10ZZ Excision of Sacrum, Open Approach (ICD-10-PCS; 2022-01-07)
PROC: 5A1D70Z Performance of Urinary Filtration, Intermittent, Less than 6 Hours Per Day (ICD-10-PCS; 2022-01-08)
PROC: 2W15X6Z Compression of Back using Pressure Dressing (ICD-10-PCS; 2022-01-10)
PROC: 5A1D70Z Performance of Urinary Filtration, Intermittent, Less than 6 Hours Per Day (ICD-10-PCS; 2022-01-11)
PROC: 5A1D70Z Performance of Urinary Filtration, Intermittent, Less than 6 Hours Per Day (ICD-10-PCS; 2022-01-13)
DX: I12.0 Hypertensive chronic kidney disease with stage 5 chronic kidney disease or end stage renal disease (principal); L89.154 Pressure ulcer of sacral region, stage 4; N18.6 End stage renal disease; G82.20 Paraplegia, unspecified; G95.9 Disease of spinal cord, unspecified; N39.0 Urinary tract infection, site not specified; E78.5 Hyperlipidemia, unspecified; K21.9 Gastro-esophageal reflux disease without esophagitis; F31.9 Bipolar disorder, unspecified; J44.9 Chronic obstructive pulmonary disease, unspecified; R32 Unspecified urinary incontinence; L89.150 Pressure ulcer of sacral region, unstageable; R50.9 Fever, unspecified; D63.1 Anemia in chronic kidney disease; D72.829 Elevated white blood cell count, unspecified; E11.22 Type 2 diabetes mellitus with diabetic chronic kidney disease; B96.1 Klebsiella pneumoniae [K. pneumoniae] as the cause of diseases classified elsewhere; E88.81 Metabolic syndrome and other insulin resistance; Z99.2 Dependence on renal dialysis; Z79.4 Long term (current) use of insulin; Z88.0 Allergy status to penicillin; E03.9 Hypothyroidism, unspecified
CPT/HCPCS: 36415; 36430; 71045-TC-FY; 80048; 80053; 81003; 82272; 82550; 82728; 82962; 83540; 83550; 83605; 83735; 83880; 84100; 84443; 84484; 85025; 85027; 85610; 85651; 85730; 86803; 86850; 86900; 86901; 86922; 87040; 87070; 87075; 87086; 87184; 87186; 87205; 87340; 88304-TC; 88311-TC; 93005; 93010; 94760; 97162-GP; 99285-25; C9803-CS; G0480; J0878; P9058; Q5106; U0003; U0005

== ENCOUNTER 2022-01-31 00:02 | Inpatient (IN) | payer OTHER ==
[2022-01-31] MEDS ORDERED: LACTATED RINGERS SOLUTION 1000 ML INFUS.BAG IV ONE (00:49)
[2022-01-31] MEDS ORDERED: HALOPERIDOL LACTATE 5 MG/ML IM ONE (01:28)
[2022-01-31] MEDS ORDERED: HALOPERIDOL LACTATE 5 MG/ML ONE (01:28)
[2022-01-31] MEDS ORDERED: SODIUM CHLORIDE 0.9% 500 ML INFUS.BAG IV ONE ×2 (02:09→05:55)
[2022-01-31 02:21] LABS: BASO % 0.3 % (0-2.0); EOS % 0.3 % (0-4.5); HEMATOCRIT 21.9 % (32.4-45.2); HEMOGLOBIN 7.3 GM/dL (10.7-15.3); LYMPH % 7.8 % (8-40); MCH 30.1 pg (25.7-33.7); MCHC 33.2 g/dl (32.0-36.0); MEAN CELL VOLUME 90.4 fl (80-96); MEAN PLT VOLUME 7.3 fl (7.5-11.1); MONO % 6.7 % (3.8-10.2); NEUT % 84.9 % (42.8-82.8); PLATELET COUNT 247 10^3/uL (134-434); RBC 2.42 M/mm3 (3.60-5.2)
[2022-01-31 02:41] LABS: BLOOD UREA NITROGEN 47.4 mg/dL (7-18); CALCIUM 8.5 mg/dL (8.5-10.1)
[2022-01-31 02:42] LABS: ALBUMIN 1.6 g/dl (3.4-5.0); MAGNESIUM 2.1 mg/dL (1.8-2.4)
[2022-01-31 02:44] LABS: PHOSPHOROUS 2.6 mg/dL (2.5-4.9)
[2022-01-31 02:45] LABS: CREATININE 3.4 mg/dL (0.55-1.3)
[2022-01-31 02:46] LABS: BILIRUBIN,TOTAL 0.3 mg/dL (0.2-1); TOT PROT 5.2 g/dl (6.4-8.2)
[2022-01-31 02:56] LABS: ACTIVATED PTT 29.2 SECONDS (25.2-36.5); INR 1.1 (0.83-1.09); PROTHROMBIN TIME (PATIENT) 12.7 SEC (9.7-13.0)
[2022-01-31] MEDS ORDERED: SODIUM CHLORIDE 500 ML IV STA (06:36)
[2022-01-31] MEDS: INSULIN SLIDING SCALE (NOVOLOG) 1 VIAL SQ SCH ×4 (08:00→22:44)
[2022-01-31 08:52] LABS: HEMATOCRIT 18.8 % (32.4-45.2); MCH 30.4 pg (25.7-33.7); MCHC 33.3 g/dl (32.0-36.0); MEAN CELL VOLUME 91.4 fl (80-96); MEAN PLT VOLUME 7.3 fl (7.5-11.1); PLATELET COUNT 243 10^3/uL (134-434); RBC 2.06 M/mm3 (3.60-5.2); WHITE BLOOD COUNT 9.8 K/mm3 (4.0-10.0)
[2022-01-31 08:57] LABS: HEMOGLOBIN 6.3 GM/dL (10.7-15.3)
[2022-01-31 09:12] LABS: CALCIUM 7.9 mg/dL (8.5-10.1)
[2022-01-31 09:13] LABS: ALBUMIN 1.5 g/dl (3.4-5.0); MAGNESIUM 2.2 mg/dL (1.8-2.4)
[2022-01-31 09:15] LABS: PHOSPHOROUS 2.5 mg/dL (2.5-4.9)
[2022-01-31 09:16] LABS: CREATININE 3.5 mg/dL (0.55-1.3)
[2022-01-31 09:17] LABS: BILIRUBIN,TOTAL 0.3 mg/dL (0.2-1); TOT PROT 4.6 g/dl (6.4-8.2)
[2022-01-31] MEDS ORDERED: FAMOTIDINE 20 MG TABLET ONE (11:27)
[2022-01-31] MEDS ORDERED: LEVOTHYROXINE NA 25 MCG TABLET (FP) ONE (11:27)
[2022-01-31] MEDS ORDERED: ESCITALOPRAM OXALATE 10 MG TABLET ONE (11:27)
[2022-01-31] MEDS: LEVOTHYROXINE NA 25 MCG TABLET (FP) PO SCH (11:35)
[2022-01-31] MEDS: FAMOTIDINE 20 MG TABLET PO SCH (11:35)
[2022-01-31] MEDS: ESCITALOPRAM OXALATE 10 MG TABLET PO SCH (11:35)
[2022-01-31] MEDS ORDERED: QUEtiapine FUMARATE 100 MG TABLET (FP) ONE (22:34)
[2022-01-31] MEDS ORDERED: SENNOSIDES 8.6MG TABLET (FP) PO ONE (22:34)
[2022-01-31] MEDS: AMITRIPTYLINE HCL 10 MG TABLET PO SCH (22:44)
[2022-01-31] MEDS: QUEtiapine FUMARATE 300 MG TABLET PO SCH (22:45)
[2022-01-31] MEDS: SENNOSIDES 8.6MG TABLET (FP) PO SCH (22:45)
[2022-02-01] MEDS ORDERED: SODIUM CHLORIDE 250 ML IV STA (03:05)
[2022-02-01] MEDS ORDERED: LACTATED RINGERS SOLUTION 1000 ML INFUS.BAG IV ONE (05:43)
[2022-02-01] MEDS: LEVOTHYROXINE NA 25 MCG TABLET (FP) PO SCH (06:30)
[2022-02-01] MEDS: INSULIN SLIDING SCALE (NOVOLOG) 1 VIAL SQ SCH ×4 (06:36→21:52)
[2022-02-01] MEDS: FAMOTIDINE 20 MG TABLET PO SCH (10:46)
[2022-02-01] MEDS: ESCITALOPRAM OXALATE 10 MG TABLET PO SCH (10:46)
[2022-02-01 13:07] VITALS: BMI 27.3
[2022-02-01 20:05] LABS: BASO % 0.3 % (0-2.0); EOS % 1.3 % (0-4.5); HEMATOCRIT 21.1 % (32.4-45.2); LYMPH % 9.6 % (8-40); MCH 30.2 pg (25.7-33.7); MCHC 32.9 g/dl (32.0-36.0); MEAN CELL VOLUME 91.7 fl (80-96); MEAN PLT VOLUME 7.3 fl (7.5-11.1); MONO % 8.3 % (3.8-10.2); NEUT % 80.5 % (42.8-82.8); PLATELET COUNT 296 10^3/uL (134-434); RDW 17.3 % (11.6-15.6); WHITE BLOOD COUNT 10.3 K/mm3 (4.0-10.0)
[2022-02-01 20:38] LABS: HEMOGLOBIN 6.9 GM/dL (10.7-15.3)
[2022-02-01] MEDS ORDERED: QUEtiapine FUMARATE 100 MG TABLET (FP) ONE (21:03)
[2022-02-01] MEDS: SENNOSIDES 8.6MG TABLET (FP) PO SCH (21:40)
[2022-02-01] MEDS: QUEtiapine FUMARATE 300 MG TABLET PO SCH (21:59)
[2022-02-01] MEDS: AMITRIPTYLINE HCL 10 MG TABLET PO SCH (23:12)
[2022-02-02] MEDS ORDERED: ACETAMINOPHEN 325 MG TABLET (FP) PO ONE ×2 (00:40→01:39)
[2022-02-02] MEDS: INSULIN SLIDING SCALE (NOVOLOG) 1 VIAL SQ SCH ×4 (06:32→22:13)
[2022-02-02] MEDS: LEVOTHYROXINE NA 25 MCG TABLET (FP) PO SCH (06:39)
[2022-02-02 08:11] LABS: BASO % 0.6 % (0-2.0); EOS % 1.3 % (0-4.5); HEMATOCRIT 24.2 % (32.4-45.2); HEMOGLOBIN 7.9 GM/dL (10.7-15.3); LYMPH % 17.1 % (8-40); MCH 30.9 pg (25.7-33.7); MCHC 32.8 g/dl (32.0-36.0); MEAN CELL VOLUME 94.1 fl (80-96); MEAN PLT VOLUME 7.5 fl (7.5-11.1); MONO % 9.7 % (3.8-10.2); NEUT % 71.3 % (42.8-82.8); PLATELET COUNT 260 10^3/uL (134-434); RBC 2.57 M/mm3 (3.60-5.2); RDW 16.8 % (11.6-15.6); WHITE BLOOD COUNT 9.7 K/mm3 (4.0-10.0)
[2022-02-02 09:05] LABS: ALBUMIN 1.6 g/dl (3.4-5.0); BLOOD UREA NITROGEN 69.1 mg/dL (7-18); CALCIUM 8.3 mg/dL (8.5-10.1); MAGNESIUM 2.5 mg/dL (1.8-2.4)
[2022-02-02 09:07] LABS: BILIRUBIN,TOTAL 0.3 mg/dL (0.2-1); CREATININE 4.5 mg/dL (0.55-1.3); TOT PROT 4.7 g/dl (6.4-8.2)
[2022-02-02] MEDS: FAMOTIDINE 20 MG TABLET PO SCH (10:34)
[2022-02-02] MEDS: ESCITALOPRAM OXALATE 10 MG TABLET PO SCH (10:34)
[2022-02-02] MEDS: COLLAGENASE CLOSTRIDIUM HIST. 30 GRAMS TUBE TP SCH (11:24)
[2022-02-02] MEDS ORDERED: SODIUM CHLORIDE 250 ML IV PRN (15:00)
[2022-02-02] MEDS ORDERED: EPOETIN ALFA-EPBX 10,000 UNIT/ML VIAL IVPUSH ONE (15:00)
[2022-02-02 15:35] LABS: EPI CELLS >36 /uL (0-25.1); HYALINE CASTS 4 /uL (0-3.1); PH,URINE 7.5 (5.0-8.0); URINE APPEARANCE TURBID; URINE BACTERIA 1793 /uL (0-1359); URINE BILIRUBIN NEGATIVE (NEGATIVE); URINE COLOR YELLOW; URINE GLUCOSE (UA) TRACE (NEGATIVE); URINE KETONE NEGATIVE (NEGATIVE); URINE LEUK ESTERASE 3+ (NEGATIVE); URINE NITRITE NEGATIVE (NEGATIVE); URINE PROTEIN 2+ (NEGATIVE); URINE UROBILINOGEN 0.2 mg/dL (0.2-1.0); URINE WBC 11941 /uL (0-25.8)
[2022-02-02 15:48] LABS: URINE RBC 42 /uL (0-23.9); YEAST NEGATIVE (NEGATIVE)
[2022-02-02] MEDS: AMINO ACIDS/PROTEIN HYDROLYS 30 ML LIQUID.PKT PO SCH (17:40)
[2022-02-02] MEDS ORDERED: QUEtiapine FUMARATE 100 MG TABLET (FP) ONE (21:29)
[2022-02-02] MEDS ORDERED: HEPARIN NA (PORCINE) 5,000 UNITS/ML 1ML VIAL SQ SCH (22:00)
[2022-02-02] MEDS: SENNOSIDES 8.6MG TABLET (FP) PO SCH (22:08)
[2022-02-02] MEDS: QUEtiapine FUMARATE 300 MG TABLET PO SCH (22:10)
[2022-02-02] MEDS: AMITRIPTYLINE HCL 10 MG TABLET PO SCH (22:11)
[2022-02-03] MEDS ORDERED: ACETAMINOPHEN 325 MG TABLET (FP) PO ONE (00:58)
[2022-02-03] MEDS ORDERED: VANCOMYCIN/WATER 1,250 MG/250 ML BAG IVPB ONE (01:02)
[2022-02-03] MEDS ORDERED: VANCOMYCIN/WATER 1250 MG 1,250 MG/250 ML BAG IVPB ONE (01:15)
[2022-02-03] MEDS: INSULIN SLIDING SCALE (NOVOLOG) 1 VIAL SQ SCH ×4 (07:00→22:08)
[2022-02-03] MEDS: LEVOTHYROXINE NA 25 MCG TABLET (FP) PO SCH (07:01)
[2022-02-03] MEDS: AMINO ACIDS/PROTEIN HYDROLYS 30 ML LIQUID.PKT PO SCH ×3 (09:33→17:50)
[2022-02-03] MEDS ORDERED: SODIUM CHLORIDE 250 ML IV PRN (10:04)
[2022-02-03] MEDS ORDERED: EPOETIN ALFA-EPBX 10,000 UNIT/ML VIAL SQ ONE (10:04)
[2022-02-03 10:22] LABS: BASO % 0.6 % (0-2.0); EOS % 1.2 % (0-4.5); HEMATOCRIT 27.4 % (32.4-45.2); HEMOGLOBIN 9.3 GM/dL (10.7-15.3); LYMPH % 11.2 % (8-40); MCH 30.6 pg (25.7-33.7); MCHC 33.8 g/dl (32.0-36.0); MEAN CELL VOLUME 90.7 fl (80-96); MEAN PLT VOLUME 7.7 fl (7.5-11.1); MONO % 9.3 % (3.8-10.2); NEUT % 77.7 % (42.8-82.8); PLATELET COUNT 250 10^3/uL (134-434); RBC 3.02 M/mm3 (3.60-5.2); RDW 17.2 % (11.6-15.6); WHITE BLOOD COUNT 13.6 K/mm3 (4.0-10.0)
[2022-02-03] MEDS ORDERED: GENTAMICIN 80 MG PREMIXED IVPB 80 MG/100 ML BAG IVPB SCH (11:00)
[2022-02-03] MEDS ORDERED: DAPTOMYCIN 500 MG in SODIUM CHLORIDE 50 ML IVPB ONE (11:00)
[2022-02-03] MEDS: ESCITALOPRAM OXALATE 10 MG TABLET PO SCH (11:22)
[2022-02-03] MEDS: COLLAGENASE CLOSTRIDIUM HIST. 30 GRAMS TUBE TP SCH (11:23)
[2022-02-03] MEDS: FAMOTIDINE 20 MG TABLET PO SCH (11:23)
[2022-02-03] MEDS ORDERED: ONDANSETRON 4 MG/2 ML VIAL IVPUSH PRN ×2 (13:42→17:35)
[2022-02-03] MEDS ORDERED: PROPOFOL 40 ML ONE (13:50)
[2022-02-03] MEDS ORDERED: ROCURONIUM BROMIDE 50 MG/5 ML SYRINGE ONE (13:51)
[2022-02-03] MEDS ORDERED: NOREPINEPHRINE BITARTRATE 4 MG/4 ML ML IV ONE (15:07)
[2022-02-03] MEDS ORDERED: SUGAMMADEX SODIUM 200 MG/2 ML VIAL ONE (15:29)
[2022-02-03] MEDS ORDERED: ONDANSETRON 4 MG/2 ML VIAL IVPUSH ONE (16:30)
[2022-02-03] MEDS ORDERED: ONDANSETRON 4 MG/2 ML VIAL ONE (16:31)
[2022-02-03] MEDS ORDERED: ePHEDrine SULFATE 50 MG/1 ML AMPULE ONE ×3 (16:41→16:42)
[2022-02-03] MEDS ORDERED: ePHEDrine SULFATE 50 MG/1 ML AMPULE IVPUSH ONE ×2 (16:43→17:09)
[2022-02-03] MEDS ORDERED: QUEtiapine FUMARATE 100 MG TABLET (FP) ONE (21:57)
[2022-02-03] MEDS: SENNOSIDES 8.6MG TABLET (FP) PO SCH (22:00)
[2022-02-03] MEDS: AMITRIPTYLINE HCL 10 MG TABLET PO SCH (22:00)
[2022-02-03] MEDS: QUEtiapine FUMARATE 300 MG TABLET PO SCH (22:02)
[2022-02-04] MEDS: INSULIN SLIDING SCALE (NOVOLOG) 1 VIAL SQ SCH ×4 (06:37→21:42)
[2022-02-04] MEDS: LEVOTHYROXINE NA 25 MCG TABLET (FP) PO SCH (06:40)
[2022-02-04] MEDS ORDERED: SODIUM CHLORIDE 250 ML IV PRN (08:00)
[2022-02-04] MEDS ORDERED: EPOETIN ALFA-EPBX 10,000 UNIT/ML VIAL SQ ONE (08:00)
[2022-02-04] MEDS: AMINO ACIDS/PROTEIN HYDROLYS 30 ML LIQUID.PKT PO SCH ×3 (08:49→17:28)
[2022-02-04 10:11] LABS: BASO % 0.3 % (0-2.0); EOS % 1.2 % (0-4.5); HEMOGLOBIN 7.5 GM/dL (10.7-15.3); LYMPH % 8.8 % (8-40); MCH 29.6 pg (25.7-33.7); MCHC 32.6 g/dl (32.0-36.0); MEAN CELL VOLUME 90.8 fl (80-96); MEAN PLT VOLUME 7.6 fl (7.5-11.1); MONO % 6.9 % (3.8-10.2); NEUT % 82.8 % (42.8-82.8); PLATELET COUNT 264 10^3/uL (134-434); RBC 2.53 M/mm3 (3.60-5.2); RDW 16.9 % (11.6-15.6); WHITE BLOOD COUNT 11.1 K/mm3 (4.0-10.0)
[2022-02-04 10:29] LABS: ALBUMIN 1.5 g/dl (3.4-5.0)
[2022-02-04 10:33] LABS: CREATININE 3.6 mg/dL (0.55-1.3)
[2022-02-04 10:34] LABS: BILIRUBIN,TOTAL 0.6 mg/dL (0.2-1); TOT PROT 4.3 g/dl (6.4-8.2)
[2022-02-04] MEDS: ESCITALOPRAM OXALATE 10 MG TABLET PO SCH (13:49)
[2022-02-04] MEDS: FAMOTIDINE 10 MG TABLET PO SCH (13:49)
[2022-02-04] MEDS ORDERED: ACETAMINOPHEN 500 MG TABLET (FP) PO ONE (20:00)
[2022-02-04 20:42] LABS: BASO % 0.4 % (0-2.0); EOS % 0.8 % (0-4.5); HEMATOCRIT 25.2 % (32.4-45.2); HEMOGLOBIN 8.4 GM/dL (10.7-15.3); MCH 30.4 pg (25.7-33.7); MCHC 33.4 g/dl (32.0-36.0); MEAN CELL VOLUME 91.2 fl (80-96); MEAN PLT VOLUME 6.9 fl (7.5-11.1); MONO % 6.8 % (3.8-10.2); PLATELET COUNT 258 10^3/uL (134-434); RBC 2.76 M/mm3 (3.60-5.2); RDW 17.4 % (11.6-15.6)
[2022-02-04] MEDS ORDERED: QUEtiapine FUMARATE 100 MG TABLET (FP) ONE (21:11)
[2022-02-04] MEDS: SENNOSIDES 8.6MG TABLET (FP) PO SCH (21:42)
[2022-02-04] MEDS: QUEtiapine FUMARATE 300 MG TABLET PO SCH (21:43)
[2022-02-04] MEDS: AMITRIPTYLINE HCL 10 MG TABLET PO SCH (21:44)
[2022-02-05] MEDS: INSULIN SLIDING SCALE (NOVOLOG) 1 VIAL SQ SCH ×4 (06:28→22:21)
[2022-02-05] MEDS: LEVOTHYROXINE NA 25 MCG TABLET (FP) PO SCH (06:29)
[2022-02-05 09:32] LABS: BASO % 0.2 % (0-2.0); EOS % 1.5 % (0-4.5); HEMATOCRIT 22.9 % (32.4-45.2); HEMOGLOBIN 7.6 GM/dL (10.7-15.3); LYMPH % 10.9 % (8-40); MCH 30.4 pg (25.7-33.7); MCHC 33.3 g/dl (32.0-36.0); MEAN CELL VOLUME 91.3 fl (80-96); MEAN PLT VOLUME 7.4 fl (7.5-11.1); MONO % 6.8 % (3.8-10.2); NEUT % 80.6 % (42.8-82.8); PLATELET COUNT 242 10^3/uL (134-434); RBC 2.51 M/mm3 (3.60-5.2); RDW 17.1 % (11.6-15.6); WHITE BLOOD COUNT 10.7 K/mm3 (4.0-10.0)
[2022-02-05] MEDS: AMINO ACIDS/PROTEIN HYDROLYS 30 ML LIQUID.PKT PO SCH ×3 (09:55→16:54)
[2022-02-05] MEDS: ESCITALOPRAM OXALATE 10 MG TABLET PO SCH (09:56)
[2022-02-05] MEDS: FAMOTIDINE 10 MG TABLET PO SCH (09:56)
[2022-02-05 10:05] LABS: CALCIUM 8.1 mg/dL (8.5-10.1)
[2022-02-05 10:06] LABS: ALBUMIN 1.6 g/dl (3.4-5.0); MAGNESIUM 1.9 mg/dL (1.8-2.4)
[2022-02-05 10:09] LABS: BILIRUBIN,TOTAL 0.3 mg/dL (0.2-1); CREATININE 2.3 mg/dL (0.55-1.3); TOT PROT 4.4 g/dl (6.4-8.2)
[2022-02-05 10:18] LABS: BLOOD UREA NITROGEN 23.6 mg/dL (7-18)
[2022-02-05] MEDS ORDERED: POTASSIUM CHLORIDE ORAL LIQUID 20 MEQ/15 ML PO ONE (14:39)
[2022-02-05] MEDS: POTASSIUM CHLORIDE TABS 20 MEQ TABLET.ER (FP) PO SCH ×2 (16:54→22:04)
[2022-02-05] MEDS ORDERED: GENTAMICIN 80 MG PREMIXED IVPB 80 MG/100 ML BAG IVPB ONE (17:38)
[2022-02-05] MEDS ORDERED: ACETAMINOPHEN 1000 MG/100 ML BAG IVPB PRN (18:20)
[2022-02-05] MEDS ORDERED: DAPTOMYCIN 500 MG in SODIUM CHLORIDE 50 ML IVPB ONE (19:00)
[2022-02-05] MEDS ORDERED: QUEtiapine FUMARATE 100 MG TABLET (FP) ONE (21:01)
[2022-02-05] MEDS: AMITRIPTYLINE HCL 10 MG TABLET PO SCH (22:05)
[2022-02-05] MEDS: QUEtiapine FUMARATE 300 MG TABLET PO SCH (22:05)
[2022-02-05] MEDS: SENNOSIDES 8.6MG TABLET (FP) PO SCH (22:05)
[2022-02-06] MEDS: LEVOTHYROXINE NA 25 MCG TABLET (FP) PO SCH (06:42)
[2022-02-06] MEDS: INSULIN SLIDING SCALE (NOVOLOG) 1 VIAL SQ SCH ×4 (06:53→21:52)
[2022-02-06] MEDS: AMINO ACIDS/PROTEIN HYDROLYS 30 ML LIQUID.PKT PO SCH ×3 (10:42→17:39)
[2022-02-06] MEDS: ESCITALOPRAM OXALATE 10 MG TABLET PO SCH (10:42)
[2022-02-06] MEDS: FAMOTIDINE 10 MG TABLET PO SCH (10:42)
[2022-02-06] MEDS ORDERED: QUEtiapine FUMARATE 100 MG TABLET (FP) ONE (21:24)
[2022-02-06] MEDS: QUEtiapine FUMARATE 300 MG TABLET PO SCH (21:52)
[2022-02-06] MEDS: AMITRIPTYLINE HCL 10 MG TABLET PO SCH (21:52)
[2022-02-06] MEDS: SENNOSIDES 8.6MG TABLET (FP) PO SCH (21:52)
[2022-02-06] MEDS: ACETAMINOPHEN 325 MG TABLET (FP) PO PRN (21:53)
[2022-02-07] MEDS: INSULIN SLIDING SCALE (NOVOLOG) 1 VIAL SQ SCH ×4 (06:43→21:05)
[2022-02-07] MEDS: LEVOTHYROXINE NA 25 MCG TABLET (FP) PO SCH (06:44)
[2022-02-07] MEDS: AMINO ACIDS/PROTEIN HYDROLYS 30 ML LIQUID.PKT PO SCH ×4 (08:28→17:57)
[2022-02-07 09:05] LABS: HEMATOCRIT 25.9 % (32.4-45.2); HEMOGLOBIN 8.5 GM/dL (10.7-15.3); MCH 30.3 pg (25.7-33.7); MCHC 32.7 g/dl (32.0-36.0); MEAN CELL VOLUME 92.7 fl (80-96); MEAN PLT VOLUME 7.3 fl (7.5-11.1); PLATELET COUNT 239 10^3/uL (134-434); RDW 17.4 % (11.6-15.6); WHITE BLOOD COUNT 10.1 K/mm3 (4.0-10.0)
[2022-02-07 09:27] LABS: CALCIUM 8.4 mg/dL (8.5-10.1)
[2022-02-07 09:28] LABS: ALBUMIN 1.7 g/dl (3.4-5.0); MAGNESIUM 2.1 mg/dL (1.8-2.4)
[2022-02-07 09:31] LABS: BILIRUBIN,TOTAL 0.4 mg/dL (0.2-1); CREATININE 3.8 mg/dL (0.55-1.3); PHOSPHOROUS 2.2 mg/dL (2.5-4.9); TOT PROT 4.7 g/dl (6.4-8.2)
[2022-02-07] MEDS ORDERED: EPOETIN ALFA-EPBX 10,000 UNIT/ML VIAL IVPUSH ONE (10:00)
[2022-02-07 11:26] LABS: ANISOCYTOSIS 1+; MACROCYTOSIS 0; OVALOCYTE 1+; TEAR DROP CELLS 1+
[2022-02-07] MEDS: ESCITALOPRAM OXALATE 10 MG TABLET PO SCH (11:31)
[2022-02-07] MEDS: FAMOTIDINE 10 MG TABLET PO SCH (11:31)
[2022-02-07] MEDS: COLLAGENASE CLOSTRIDIUM HIST. 30 GRAMS TUBE TP SCH (13:56)
[2022-02-07] MEDS ORDERED: DAPTOMYCIN 500 MG in SODIUM CHLORIDE 50 ML IVPB ONE (18:06)
[2022-02-07] MEDS ORDERED: GENTAMICIN INJECTION 80 MG in DEXTROSE 5%-WATER - 250 ML IVPB SCH (18:15)
[2022-02-07] MEDS ORDERED: ACETAMINOPHEN 325 MG TABLET (FP) PO ONE (20:35)
[2022-02-07] MEDS ORDERED: QUEtiapine FUMARATE 100 MG TABLET (FP) ONE (21:03)
[2022-02-07] MEDS: AMITRIPTYLINE HCL 10 MG TABLET PO SCH (21:05)
[2022-02-07] MEDS: SENNOSIDES 8.6MG TABLET (FP) PO SCH (21:06)
[2022-02-07] MEDS: QUEtiapine FUMARATE 300 MG TABLET PO SCH (21:07)
[2022-02-08] MEDS: LEVOTHYROXINE NA 25 MCG TABLET (FP) PO SCH (06:26)
[2022-02-08] MEDS: INSULIN SLIDING SCALE (NOVOLOG) 1 VIAL SQ SCH ×4 (06:31→21:46)
[2022-02-08] MEDS: AMINO ACIDS/PROTEIN HYDROLYS 30 ML LIQUID.PKT PO SCH ×3 (08:14→17:26)
[2022-02-08 08:43] LABS: BASO % 0.5 % (0-2.0); EOS % 1.6 % (0-4.5); HEMATOCRIT 26.5 % (32.4-45.2); HEMOGLOBIN 8.4 GM/dL (10.7-15.3); LYMPH % 12.7 % (8-40); MCH 29.5 pg (25.7-33.7); MCHC 31.6 g/dl (32.0-36.0); MEAN CELL VOLUME 93.4 fl (80-96); MEAN PLT VOLUME 7.6 fl (7.5-11.1); NEUT % 79.2 % (42.8-82.8); PLATELET COUNT 259 10^3/uL (134-434); RBC 2.84 M/mm3 (3.60-5.2); RDW 17.1 % (11.6-15.6); WHITE BLOOD COUNT 12.2 K/mm3 (4.0-10.0)
[2022-02-08 08:45] LABS: ALBUMIN 1.6 g/dl (3.4-5.0)
[2022-02-08 08:46] LABS: CALCIUM 8.2 mg/dL (8.5-10.1)
[2022-02-08 08:50] LABS: BLOOD UREA NITROGEN 33.6 mg/dL (7-18); CREATININE 2.7 mg/dL (0.55-1.3)
[2022-02-08 08:52] LABS: BILIRUBIN,TOTAL 0.3 mg/dL (0.2-1); TOT PROT 4.7 g/dl (6.4-8.2)
[2022-02-08] MEDS: FAMOTIDINE 10 MG TABLET PO SCH (10:24)
[2022-02-08] MEDS: COLLAGENASE CLOSTRIDIUM HIST. 30 GRAMS TUBE TP SCH (10:24)
[2022-02-08] MEDS: ESCITALOPRAM OXALATE 10 MG TABLET PO SCH (10:24)
[2022-02-08] MEDS ORDERED: PNEUMOC 20-VAL CONJ-DIP CRM/PF 0.5 ML SYRINGE IM ONE (20:00)
[2022-02-08] MEDS ORDERED: QUEtiapine FUMARATE 100 MG TABLET (FP) ONE (21:09)
[2022-02-08] MEDS: AMITRIPTYLINE HCL 10 MG TABLET PO SCH (21:46)
[2022-02-08] MEDS: SENNOSIDES 8.6MG TABLET (FP) PO SCH (21:47)
[2022-02-08] MEDS: QUEtiapine FUMARATE 300 MG TABLET PO SCH (21:47)
[2022-02-09] MEDS: INSULIN SLIDING SCALE (NOVOLOG) 1 VIAL SQ SCH ×4 (06:32→21:16)
[2022-02-09] MEDS: LEVOTHYROXINE NA 25 MCG TABLET (FP) PO SCH (06:36)
[2022-02-09] MEDS: AMINO ACIDS/PROTEIN HYDROLYS 30 ML LIQUID.PKT PO SCH ×3 (10:35→17:31)
[2022-02-09] MEDS: ESCITALOPRAM OXALATE 10 MG TABLET PO SCH (11:08)
[2022-02-09] MEDS: COLLAGENASE CLOSTRIDIUM HIST. 30 GRAMS TUBE TP SCH (11:09)
[2022-02-09] MEDS ORDERED: SODIUM CHLORIDE 250 ML IV PRN (11:47)
[2022-02-09 12:20] LABS: HEMATOCRIT 24.8 % (32.4-45.2); HEMOGLOBIN 8.1 GM/dL (10.7-15.3); MCH 30.2 pg (25.7-33.7); MCHC 32.6 g/dl (32.0-36.0); MEAN CELL VOLUME 92.7 fl (80-96); MEAN PLT VOLUME 7.3 fl (7.5-11.1); PLATELET COUNT 240 10^3/uL (134-434); RBC 2.67 M/mm3 (3.60-5.2); RDW 17.2 % (11.6-15.6); WHITE BLOOD COUNT 11.6 K/mm3 (4.0-10.0)
[2022-02-09 13:54] LABS: ANISOCYTOSIS 0; HELMET CELLS 0; HOWELL-JOLLY BODIES 0; MACROCYTOSIS 0; OVALOCYTE 0; ROULEAU 0; SICKELED CELLS 0; TARGET CELLS 0; TEAR DROP CELLS 0; TOXIC GRANULATION 0
[2022-02-09] MEDS: FAMOTIDINE 10 MG TABLET PO SCH (13:57)
[2022-02-09] MEDS: ACETAMINOPHEN 325 MG TABLET (FP) PO PRN (19:03)
[2022-02-09] MEDS ORDERED: LACTATED RINGERS SOLUTION 1000 ML INFUS.BAG IV ONE (20:50)
[2022-02-09] MEDS ORDERED: QUEtiapine FUMARATE 100 MG TABLET (FP) ONE (21:09)
[2022-02-09] MEDS: QUEtiapine FUMARATE 100 MG TABLET (FP) PO SCH (21:51)
[2022-02-09] MEDS: SENNOSIDES 8.6MG TABLET (FP) PO SCH (21:52)
[2022-02-09] MEDS: AMITRIPTYLINE HCL 10 MG TABLET PO SCH (22:51)
[2022-02-09] MEDS ORDERED: ACETAMINOPHEN 1000 MG/100 ML BAG IVPB ONE (23:04)
[2022-02-10] MEDS ORDERED: ACETAMINOPHEN 1000 MG/100 ML BAG IVPB ONE (02:45)
[2022-02-10] MEDS: LEVOTHYROXINE NA 25 MCG TABLET (FP) PO SCH (06:04)
[2022-02-10] MEDS: INSULIN SLIDING SCALE (NOVOLOG) 1 VIAL SQ SCH ×4 (06:07→22:44)
[2022-02-10] MEDS: AMINO ACIDS/PROTEIN HYDROLYS 30 ML LIQUID.PKT PO SCH ×3 (09:43→17:12)
[2022-02-10] MEDS: ESCITALOPRAM OXALATE 10 MG TABLET PO SCH (10:47)
[2022-02-10] MEDS: COLLAGENASE CLOSTRIDIUM HIST. 30 GRAMS TUBE TP SCH (10:47)
[2022-02-10] MEDS: FAMOTIDINE 10 MG TABLET PO SCH (10:47)
[2022-02-10] MEDS: ACETAMINOPHEN 325 MG TABLET (FP) PO PRN ×2 (10:50→20:00)
[2022-02-10] MEDS ORDERED: EPOETIN ALFA-EPBX 10,000 UNIT/ML VIAL SQ ONE (11:47)
[2022-02-10] MEDS ORDERED: EPOETIN ALFA-EPBX 10,000 UNIT/ML VIAL IVPUSH ONE (11:47)
[2022-02-10] MEDS ORDERED: EPOETIN ALFA-EPBX 20,000 UNIT/ML VIAL IVPUSH ONE (11:47)
[2022-02-10] MEDS ORDERED: BENZOIN/ALOE VERA/STORAX/TOLU 58 ML BOTTLE TP PRN (11:48)
[2022-02-10] MEDS ORDERED: GENTAMICIN INJECTION 80 MG in DEXTROSE 5%-WATER - 250 ML IVPB SCH (14:00)
[2022-02-10] MEDS ORDERED: DAPTOMYCIN 500 MG in SODIUM CHLORIDE 50 ML IVPB ONE ×2 (14:30→19:30)
[2022-02-10 15:35] LABS: EPI CELLS 5 /uL (0-25.1); HYALINE CASTS 1 /uL (0-3.1); URINE APPEARANCE CLOUDY; URINE BACTERIA 570 /uL (0-1359); URINE BILIRUBIN NEGATIVE (NEGATIVE); URINE COLOR YELLOW; URINE GLUCOSE (UA) 1+ (NEGATIVE); URINE KETONE NEGATIVE (NEGATIVE); URINE LEUK ESTERASE 3+ (NEGATIVE); URINE NITRITE NEGATIVE (NEGATIVE); URINE PROTEIN 2+ (NEGATIVE); URINE RBC 8 /uL (0-23.9); URINE UROBILINOGEN 0.2 mg/dL (0.2-1.0); URINE WBC 2022 /uL (0-25.8)
[2022-02-10 18:03] LABS: HEMATOCRIT 24.1 % (32.4-45.2); MCH 30.9 pg (25.7-33.7); MCHC 33.2 g/dl (32.0-36.0); MEAN CELL VOLUME 93.1 fl (80-96); MEAN PLT VOLUME 7.3 fl (7.5-11.1); PLATELET COUNT 217 10^3/uL (134-434); RBC 2.59 M/mm3 (3.60-5.2); WHITE BLOOD COUNT 7.4 K/mm3 (4.0-10.0)
[2022-02-10 18:26] LABS: ALBUMIN 1.8 g/dl (3.4-5.0); BLOOD UREA NITROGEN 51.7 mg/dL (7-18); CALCIUM 8.5 mg/dL (8.5-10.1)
[2022-02-10 18:30] LABS: BILIRUBIN,TOTAL 0.3 mg/dL (0.2-1)
[2022-02-10 18:31] LABS: CREATININE 3.9 mg/dL (0.55-1.3)
[2022-02-10 18:32] LABS: TOT PROT 4.6 g/dl (6.4-8.2)
[2022-02-10] MEDS: GENTAMICIN 80 MG PREMIXED IVPB 80 MG/100 ML BAG IVPB SCH ×2 (20:04→20:17)
[2022-02-10] MEDS: AMITRIPTYLINE HCL 10 MG TABLET PO SCH (22:43)
[2022-02-10] MEDS: QUEtiapine FUMARATE 100 MG TABLET (FP) PO SCH (22:44)
[2022-02-10] MEDS: SENNOSIDES 8.6MG TABLET (FP) PO SCH (22:44)
[2022-02-11] MEDS: ACETAMINOPHEN 325 MG TABLET (FP) PO PRN ×2 (02:21→17:21)
[2022-02-11] MEDS: INSULIN SLIDING SCALE (NOVOLOG) 1 VIAL SQ SCH ×4 (06:38→23:34)
[2022-02-11] MEDS: LEVOTHYROXINE NA 25 MCG TABLET (FP) PO SCH ×2 (06:38→06:42)
[2022-02-11 09:27] LABS: BASO % 0.7 % (0-2.0); EOS % 0.3 % (0-4.5); HEMATOCRIT 27.8 % (32.4-45.2); LYMPH % 16.3 % (8-40); MCH 30.2 pg (25.7-33.7); MCHC 32.3 g/dl (32.0-36.0); MEAN CELL VOLUME 93.3 fl (80-96); MEAN PLT VOLUME 7.2 fl (7.5-11.1); MONO % 13.6 % (3.8-10.2); NEUT % 69.1 % (42.8-82.8); PLATELET COUNT 221 10^3/uL (134-434); RBC 2.98 M/mm3 (3.60-5.2); WHITE BLOOD COUNT 6.9 K/mm3 (4.0-10.0)
[2022-02-11 09:51] LABS: ALBUMIN 1.9 g/dl (3.4-5.0)
[2022-02-11 09:52] LABS: BLOOD UREA NITROGEN 29.2 mg/dL (7-18); CALCIUM 8.2 mg/dL (8.5-10.1)
[2022-02-11 09:54] LABS: CREATININE 2.6 mg/dL (0.55-1.3)
[2022-02-11 09:56] LABS: BILIRUBIN,TOTAL 0.3 mg/dL (0.2-1); TOT PROT 5.2 g/dl (6.4-8.2)
[2022-02-11] MEDS: AMINO ACIDS/PROTEIN HYDROLYS 30 ML LIQUID.PKT PO SCH ×3 (10:11→17:16)
[2022-02-11] MEDS: ESCITALOPRAM OXALATE 10 MG TABLET PO SCH (10:13)
[2022-02-11] MEDS: FAMOTIDINE 10 MG TABLET PO SCH (10:13)
[2022-02-11] MEDS: COLLAGENASE CLOSTRIDIUM HIST. 30 GRAMS TUBE TP SCH (10:14)
[2022-02-11] MEDS ORDERED: SODIUM CHLORIDE 250 ML IV PRN (13:29)
[2022-02-11] MEDS: DOCUSATE SODIUM 100 MG CAPSULE (FP) PO SCH (23:26)
[2022-02-11] MEDS: SENNOSIDES 8.6MG TABLET (FP) PO SCH (23:26)
[2022-02-11] MEDS: QUEtiapine FUMARATE 100 MG TABLET (FP) PO SCH (23:27)
[2022-02-11] MEDS: AMITRIPTYLINE HCL 10 MG TABLET PO SCH (23:28)
[2022-02-11] MEDS: POLYETHYLENE GLYCOL (HEALTHYLAX) 3350 17 GM PACKET PO SCH (23:34)
[2022-02-12] MEDS: ACETAMINOPHEN 325 MG TABLET (FP) PO PRN ×3 (00:49→18:05)
[2022-02-12] MEDS: DOCUSATE SODIUM 100 MG CAPSULE (FP) PO SCH ×3 (06:37→21:53)
[2022-02-12] MEDS: LEVOTHYROXINE NA 25 MCG TABLET (FP) PO SCH (06:38)
[2022-02-12] MEDS: INSULIN SLIDING SCALE (NOVOLOG) 1 VIAL SQ SCH ×4 (06:40→22:01)
[2022-02-12] MEDS: AMINO ACIDS/PROTEIN HYDROLYS 30 ML LIQUID.PKT PO SCH ×3 (10:15→17:25)
[2022-02-12] MEDS: ESCITALOPRAM OXALATE 10 MG TABLET PO SCH (10:16)
[2022-02-12] MEDS: POLYETHYLENE GLYCOL (HEALTHYLAX) 3350 17 GM PACKET PO SCH ×2 (10:17→21:55)
[2022-02-12] MEDS: COLLAGENASE CLOSTRIDIUM HIST. 30 GRAMS TUBE TP SCH (10:18)
[2022-02-12] MEDS: GENTAMICIN 80 MG PREMIXED IVPB 80 MG/100 ML BAG IVPB ONE ×2 (10:18→15:30)
[2022-02-12] MEDS: FAMOTIDINE 10 MG TABLET PO SCH (10:18)
[2022-02-12] MEDS: DAPTOMYCIN 500 MG in SODIUM CHLORIDE 50 ML IVPB ONE ×2 (10:18→16:30)
[2022-02-12 10:49] LABS: BASO % 0.3 % (0-2.0); EOS % 0.1 % (0-4.5); HEMATOCRIT 23.7 % (32.4-45.2); HEMOGLOBIN 7.8 GM/dL (10.7-15.3); LYMPH % 14.7 % (8-40); MCH 30.2 pg (25.7-33.7); MCHC 32.8 g/dl (32.0-36.0); MEAN PLT VOLUME 7.8 fl (7.5-11.1); MONO % 9.8 % (3.8-10.2); NEUT % 75.1 % (42.8-82.8); PLATELET COUNT 210 10^3/uL (134-434); RBC 2.57 M/mm3 (3.60-5.2); RDW 17.5 % (11.6-15.6); WHITE BLOOD COUNT 7.1 K/mm3 (4.0-10.0)
[2022-02-12 11:06] LABS: ALBUMIN 1.7 g/dl (3.4-5.0); BLOOD UREA NITROGEN 43.6 mg/dL (7-18); CALCIUM 7.7 mg/dL (8.5-10.1)
[2022-02-12 11:08] LABS: CREATININE 3.5 mg/dL (0.55-1.3)
[2022-02-12 11:10] LABS: BILIRUBIN,TOTAL 0.4 mg/dL (0.2-1); TOT PROT 4.7 g/dl (6.4-8.2)
[2022-02-12] MEDS ORDERED: REMDESIVIR 200 MG in SODIUM CHLORIDE 250 ML IVPB ONE (12:00)
[2022-02-12] MEDS ORDERED: EPOETIN ALFA-EPBX 20,000 UNIT/ML VIAL SQ ONE (13:30)
[2022-02-12] MEDS: SENNOSIDES 8.6MG TABLET (FP) PO SCH (21:53)
[2022-02-12] MEDS: QUEtiapine FUMARATE 100 MG TABLET (FP) PO SCH (21:53)
[2022-02-12] MEDS: AMITRIPTYLINE HCL 10 MG TABLET PO SCH (21:53)
[2022-02-13] MEDS: LEVOTHYROXINE NA 25 MCG TABLET (FP) PO SCH (06:12)
[2022-02-13] MEDS: DOCUSATE SODIUM 100 MG CAPSULE (FP) PO SCH ×3 (06:12→21:50)
[2022-02-13] MEDS ORDERED: ACETAMINOPHEN 1000 MG/100 ML BAG IVPB ONE ×2 (06:17→21:29)
[2022-02-13] MEDS: INSULIN SLIDING SCALE (NOVOLOG) 1 VIAL SQ SCH ×4 (06:19→22:20)
[2022-02-13] MEDS: POLYETHYLENE GLYCOL (HEALTHYLAX) 3350 17 GM PACKET PO SCH ×2 (10:20→21:51)
[2022-02-13] MEDS: ESCITALOPRAM OXALATE 10 MG TABLET PO SCH (10:20)
[2022-02-13] MEDS: AMINO ACIDS/PROTEIN HYDROLYS 30 ML LIQUID.PKT PO SCH ×3 (10:20→17:44)
[2022-02-13] MEDS: HEPARIN NA (PORCINE) 5,000 UNITS/ML 1ML VIAL SQ SCH ×2 (10:20→21:50)
[2022-02-13] MEDS: FAMOTIDINE 10 MG TABLET PO SCH (10:21)
[2022-02-13] MEDS: COLLAGENASE CLOSTRIDIUM HIST. 30 GRAMS TUBE TP SCH (10:22)
[2022-02-13] MEDS ORDERED: REMDESIVIR 100 MG in SODIUM CHLORIDE 250 ML IVPB SCH (12:00)
[2022-02-13] MEDS: REMDESIVIR 100 MG in SODIUM CHLORIDE 250 ML IVPB SCH (17:46)
[2022-02-13] MEDS: QUEtiapine FUMARATE 100 MG TABLET (FP) PO SCH (21:50)
[2022-02-13] MEDS: SENNOSIDES 8.6MG TABLET (FP) PO SCH (21:50)
[2022-02-13] MEDS: AMITRIPTYLINE HCL 10 MG TABLET PO SCH (21:51)
[2022-02-14] MEDS ORDERED: ACETAMINOPHEN 1000 MG/100 ML BAG IVPB ONE (06:01)
[2022-02-14] MEDS: DOCUSATE SODIUM 100 MG CAPSULE (FP) PO SCH ×4 (06:23→21:27)
[2022-02-14] MEDS: LEVOTHYROXINE NA 25 MCG TABLET (FP) PO SCH ×2 (06:23→06:36)
[2022-02-14] MEDS: INSULIN SLIDING SCALE (NOVOLOG) 1 VIAL SQ SCH ×4 (06:36→23:00)
[2022-02-14] MEDS: AMINO ACIDS/PROTEIN HYDROLYS 30 ML LIQUID.PKT PO SCH ×3 (11:33→17:17)
[2022-02-14] MEDS: ESCITALOPRAM OXALATE 10 MG TABLET PO SCH (11:35)
[2022-02-14] MEDS: FAMOTIDINE 10 MG TABLET PO SCH (11:38)
[2022-02-14] MEDS: HEPARIN NA (PORCINE) 5,000 UNITS/ML 1ML VIAL SQ SCH ×2 (11:39→22:36)
[2022-02-14] MEDS: POLYETHYLENE GLYCOL (HEALTHYLAX) 3350 17 GM PACKET PO SCH ×2 (11:39→21:27)
[2022-02-14] MEDS ORDERED: SODIUM CHLORIDE 250 ML IV PRN (12:11)
[2022-02-14] MEDS: COLLAGENASE CLOSTRIDIUM HIST. 30 GRAMS TUBE TP SCH ×2 (12:40→12:51)
[2022-02-14] MEDS: ACETAMINOPHEN 325 MG TABLET (FP) PO PRN ×2 (12:47→18:06)
[2022-02-14 14:01] LABS: BASO % 0.2 % (0-2.0); EOS % 0.1 % (0-4.5); HEMATOCRIT 25.6 % (32.4-45.2); HEMOGLOBIN 8.1 GM/dL (10.7-15.3); LYMPH % 9.5 % (8-40); MCH 29.4 pg (25.7-33.7); MCHC 31.7 g/dl (32.0-36.0); MEAN CELL VOLUME 92.7 fl (80-96); MEAN PLT VOLUME 8.2 fl (7.5-11.1); MONO % 6.3 % (3.8-10.2); NEUT % 83.9 % (42.8-82.8); PLATELET COUNT 223 10^3/uL (134-434); RBC 2.76 M/mm3 (3.60-5.2); RDW 17.4 % (11.6-15.6); WHITE BLOOD COUNT 14.3 K/mm3 (4.0-10.0)
[2022-02-14 14:29] LABS: CALCIUM 7.9 mg/dL (8.5-10.1)
[2022-02-14 14:30] LABS: ALBUMIN 1.8 g/dl (3.4-5.0); BLOOD UREA NITROGEN 43.1 mg/dL (7-18); MAGNESIUM 1.9 mg/dL (1.8-2.4)
[2022-02-14 14:33] LABS: CREATININE 3.4 mg/dL (0.55-1.3)
[2022-02-14 14:34] LABS: BILIRUBIN,TOTAL 0.4 mg/dL (0.2-1); TOT PROT 4.9 g/dl (6.4-8.2)
[2022-02-14] MEDS: REMDESIVIR 100 MG in SODIUM CHLORIDE 250 ML IVPB SCH (19:04)
[2022-02-14] MEDS: SENNOSIDES 8.6MG TABLET (FP) PO SCH (21:28)
[2022-02-14] MEDS: AMITRIPTYLINE HCL 10 MG TABLET PO SCH (22:36)
[2022-02-14] MEDS: QUEtiapine FUMARATE 100 MG TABLET (FP) PO SCH (22:36)
[2022-02-15] MEDS: INSULIN SLIDING SCALE (NOVOLOG) 1 VIAL SQ SCH ×4 (05:30→22:43)
[2022-02-15] MEDS: DOCUSATE SODIUM 100 MG CAPSULE (FP) PO SCH (05:38)
[2022-02-15] MEDS: LEVOTHYROXINE NA 25 MCG TABLET (FP) PO SCH (06:04)
[2022-02-15] MEDS: FAMOTIDINE 10 MG TABLET PO SCH (09:50)
[2022-02-15] MEDS: AMINO ACIDS/PROTEIN HYDROLYS 30 ML LIQUID.PKT PO SCH ×3 (09:50→18:14)
[2022-02-15] MEDS: ESCITALOPRAM OXALATE 10 MG TABLET PO SCH (09:50)
[2022-02-15] MEDS: HEPARIN NA (PORCINE) 5,000 UNITS/ML 1ML VIAL SQ SCH ×2 (09:50→22:28)
[2022-02-15] MEDS: COLLAGENASE CLOSTRIDIUM HIST. 30 GRAMS TUBE TP SCH (12:25)
[2022-02-15] MEDS ORDERED: EPOETIN ALFA-EPBX 20,000 UNIT/ML VIAL IVPUSH ONE (14:00)
[2022-02-15 14:19] LABS: BASO % 0.1 % (0-2.0); EOS % 0.3 % (0-4.5); HEMATOCRIT 24.6 % (32.4-45.2); HEMOGLOBIN 7.7 GM/dL (10.7-15.3); LYMPH % 10.3 % (8-40); MCH 28.9 pg (25.7-33.7); MCHC 31.5 g/dl (32.0-36.0); MEAN CELL VOLUME 91.7 fl (80-96); MEAN PLT VOLUME 7.9 fl (7.5-11.1); MONO % 6.4 % (3.8-10.2); NEUT % 82.9 % (42.8-82.8); PLATELET COUNT 223 10^3/uL (134-434); RBC 2.68 M/mm3 (3.60-5.2); RDW 17.7 % (11.6-15.6); WHITE BLOOD COUNT 12.2 K/mm3 (4.0-10.0)
[2022-02-15] MEDS ORDERED: AZTREONAM 1 GM in DEXTROSE 5%-WATER - 50 ML IVPB ONE (18:05)
[2022-02-15 18:27] LABS: CALCIUM 7.7 mg/dL (8.5-10.1)
[2022-02-15 18:28] LABS: ALBUMIN 1.7 g/dl (3.4-5.0); BLOOD UREA NITROGEN 53.8 mg/dL (7-18)
[2022-02-15 18:30] LABS: CREATININE 3.7 mg/dL (0.55-1.3)
[2022-02-15 18:32] LABS: BILIRUBIN,TOTAL 0.4 mg/dL (0.2-1); TOT PROT 4.6 g/dl (6.4-8.2)
[2022-02-15 19:44] LABS: MAGNESIUM 1.9 mg/dL (1.8-2.4)
[2022-02-15] MEDS: SENNOSIDES 8.6MG TABLET (FP) PO SCH (22:28)
[2022-02-15] MEDS: AMITRIPTYLINE HCL 10 MG TABLET PO SCH (22:28)
[2022-02-15] MEDS: QUEtiapine FUMARATE 100 MG TABLET (FP) PO SCH (22:29)
[2022-02-16] MEDS: LEVOTHYROXINE NA 25 MCG TABLET (FP) PO SCH (06:15)
[2022-02-16] MEDS: INSULIN SLIDING SCALE (NOVOLOG) 1 VIAL SQ SCH ×4 (06:15→22:07)
[2022-02-16] MEDS: AMINO ACIDS/PROTEIN HYDROLYS 30 ML LIQUID.PKT PO SCH ×3 (10:29→17:31)
[2022-02-16] MEDS: HEPARIN NA (PORCINE) 5,000 UNITS/ML 1ML VIAL SQ SCH ×2 (10:30→21:53)
[2022-02-16] MEDS: ESCITALOPRAM OXALATE 10 MG TABLET PO SCH (10:31)
[2022-02-16] MEDS: FAMOTIDINE 10 MG TABLET PO SCH (10:31)
[2022-02-16] MEDS ORDERED: AZTREONAM 1 GM in DEXTROSE 5%-WATER - 50 ML IVPB ONE ×2 (10:45→15:45)
[2022-02-16] MEDS: ACETAMINOPHEN 325 MG TABLET (FP) PO PRN (11:40)
[2022-02-16] MEDS: VANCOMYCIN 250 MG/5 ML ORAL SOLUTION PO SCH ×2 (15:38→17:59)
[2022-02-16] MEDS: SODIUM HYPOCHLORITE 0.25%- 473 ML BULK BOTTLE TP SCH (16:02)
[2022-02-16] MEDS: COLLAGENASE CLOSTRIDIUM HIST. 30 GRAMS TUBE TP SCH (17:30)
[2022-02-16] MEDS: AMITRIPTYLINE HCL 10 MG TABLET PO SCH (21:53)
[2022-02-16] MEDS: SENNOSIDES 8.6MG TABLET (FP) PO SCH (21:53)
[2022-02-16] MEDS: QUEtiapine FUMARATE 100 MG TABLET (FP) PO SCH (21:53)
[2022-02-17] MEDS: VANCOMYCIN 250 MG/5 ML ORAL SOLUTION PO SCH ×4 (00:55→18:42)
[2022-02-17] MEDS: LEVOTHYROXINE NA 25 MCG TABLET (FP) PO SCH (06:12)
[2022-02-17] MEDS: INSULIN SLIDING SCALE (NOVOLOG) 1 VIAL SQ SCH ×4 (06:12→22:08)
[2022-02-17] MEDS: AMINO ACIDS/PROTEIN HYDROLYS 30 ML LIQUID.PKT PO SCH ×3 (10:00→18:42)
[2022-02-17] MEDS ORDERED: SODIUM CHLORIDE 250 ML IV PRN (10:40)
[2022-02-17] MEDS ORDERED: EPOETIN ALFA-EPBX 20,000 UNIT/ML VIAL SQ ONE (10:40)
[2022-02-17] MEDS: FAMOTIDINE 10 MG TABLET PO SCH ×2 (10:41→11:04)
[2022-02-17] MEDS: ESCITALOPRAM OXALATE 10 MG TABLET PO SCH ×2 (10:41→11:04)
[2022-02-17] MEDS: HEPARIN NA (PORCINE) 5,000 UNITS/ML 1ML VIAL SQ SCH ×3 (10:46→21:45)
[2022-02-17 11:18] LABS: CHLORIDE 105 mmol/L (98-107); SODIUM 141 mmol/L (136-145)
[2022-02-17 11:22] LABS: CALCIUM 7.5 mg/dL (8.5-10.1); CO2 25 mmol/L (21-32)
[2022-02-17 11:23] LABS: ALBUMIN 1.5 g/dl (3.4-5.0); BLOOD UREA NITROGEN 38.9 mg/dL (7-18); GLUCOSE,RANDOM 82 mg/dL (74-106); MAGNESIUM 1.9 mg/dL (1.8-2.4)
[2022-02-17 11:26] LABS: SGOT/AST 14 U/L (15-37); SGPT/ALT 9 U/L (13-61)
[2022-02-17 11:27] LABS: BILIRUBIN,TOTAL 0.8 mg/dL (0.2-1)
[2022-02-17 11:28] LABS: TOT PROT 4.6 g/dl (6.4-8.2)
[2022-02-17 11:29] LABS: ALK PHOS 89 U/L (45-117)
[2022-02-17 11:46] LABS: ANION GAP 11 MMOL/L (8-16)
[2022-02-17] MEDS: POTASSIUM CHLORIDE TABS 20 MEQ TABLET.ER (FP) PO SCH ×2 (14:56→21:46)
[2022-02-17] MEDS: SODIUM HYPOCHLORITE 0.25%- 473 ML BULK BOTTLE TP SCH (17:26)
[2022-02-17] MEDS: COLLAGENASE CLOSTRIDIUM HIST. 30 GRAMS TUBE TP SCH (17:26)
[2022-02-17] MEDS: SENNOSIDES 8.6MG TABLET (FP) PO SCH (21:45)
[2022-02-17] MEDS: QUEtiapine FUMARATE 100 MG TABLET (FP) PO SCH (21:45)
[2022-02-17] MEDS: AMITRIPTYLINE HCL 10 MG TABLET PO SCH (21:45)
[2022-02-18] MEDS: VANCOMYCIN 250 MG/5 ML ORAL SOLUTION PO SCH ×4 (01:12→17:56)
[2022-02-18] MEDS: LEVOTHYROXINE NA 25 MCG TABLET (FP) PO SCH (06:11)
[2022-02-18] MEDS: INSULIN SLIDING SCALE (NOVOLOG) 1 VIAL SQ SCH ×4 (08:22→21:38)
[2022-02-18] MEDS: AMINO ACIDS/PROTEIN HYDROLYS 30 ML LIQUID.PKT PO SCH ×3 (10:07→17:56)
[2022-02-18] MEDS: ESCITALOPRAM OXALATE 10 MG TABLET PO SCH (10:07)
[2022-02-18] MEDS: HEPARIN NA (PORCINE) 5,000 UNITS/ML 1ML VIAL SQ SCH ×2 (10:08→21:29)
[2022-02-18] MEDS: SODIUM HYPOCHLORITE 0.25%- 473 ML BULK BOTTLE TP SCH (10:08)
[2022-02-18] MEDS: COLLAGENASE CLOSTRIDIUM HIST. 30 GRAMS TUBE TP SCH (10:08)
[2022-02-18] MEDS: FAMOTIDINE 10 MG TABLET PO SCH (10:08)
[2022-02-18] MEDS: QUEtiapine FUMARATE 100 MG TABLET (FP) PO SCH (21:28)
[2022-02-18] MEDS: SENNOSIDES 8.6MG TABLET (FP) PO SCH (21:28)
[2022-02-18] MEDS: AMITRIPTYLINE HCL 10 MG TABLET PO SCH (21:28)
[2022-02-19] MEDS: VANCOMYCIN 250 MG/5 ML ORAL SOLUTION PO SCH ×4 (00:12→17:37)
[2022-02-19] MEDS: LEVOTHYROXINE NA 25 MCG TABLET (FP) PO SCH (06:01)
[2022-02-19] MEDS: INSULIN SLIDING SCALE (NOVOLOG) 1 VIAL SQ SCH ×4 (06:01→22:12)
[2022-02-19 08:49] LABS: BLOOD UREA NITROGEN 27.9 mg/dL (7-18); CALCIUM 7.6 mg/dL (8.5-10.1)
[2022-02-19 08:50] LABS: ALBUMIN 1.4 g/dl (3.4-5.0); MAGNESIUM 1.7 mg/dL (1.8-2.4)
[2022-02-19 08:53] LABS: CREATININE 2.5 mg/dL (0.55-1.3)
[2022-02-19 08:54] LABS: BILIRUBIN,TOTAL 0.4 mg/dL (0.2-1); TOT PROT 4.4 g/dl (6.4-8.2)
[2022-02-19 09:06] LABS: BASO % 0.2 % (0-2.0); EOS % 0.6 % (0-4.5); HEMATOCRIT 23.5 % (32.4-45.2); HEMOGLOBIN 7.8 GM/dL (10.7-15.3); MCH 30.7 pg (25.7-33.7); MEAN PLT VOLUME 7.7 fl (7.5-11.1); MONO % 12.2 % (3.8-10.2); PLATELET COUNT 274 10^3/uL (134-434); RBC 2.52 M/mm3 (3.60-5.2); RDW 17.7 % (11.6-15.6); WHITE BLOOD COUNT 9.7 K/mm3 (4.0-10.0)
[2022-02-19] MEDS: ESCITALOPRAM OXALATE 10 MG TABLET PO SCH (11:01)
[2022-02-19] MEDS: HEPARIN NA (PORCINE) 5,000 UNITS/ML 1ML VIAL SQ SCH ×2 (11:02→21:58)
[2022-02-19] MEDS: FAMOTIDINE 10 MG TABLET PO SCH (11:02)
[2022-02-19] MEDS: AMINO ACIDS/PROTEIN HYDROLYS 30 ML LIQUID.PKT PO SCH ×3 (11:02→17:34)
[2022-02-19] MEDS ORDERED: SODIUM CHLORIDE 250 ML IV PRN (12:35)
[2022-02-19] MEDS: COLLAGENASE CLOSTRIDIUM HIST. 30 GRAMS TUBE TP SCH (12:43)
[2022-02-19] MEDS: SODIUM HYPOCHLORITE 0.25%- 473 ML BULK BOTTLE TP SCH (12:44)
[2022-02-19] MEDS ORDERED: EPOETIN ALFA-EPBX 20,000 UNIT/ML VIAL SQ ONE (14:00)
[2022-02-19] MEDS: AMITRIPTYLINE HCL 10 MG TABLET PO SCH (21:58)
[2022-02-19] MEDS: QUEtiapine FUMARATE 100 MG TABLET (FP) PO SCH (21:58)
[2022-02-19] MEDS: SENNOSIDES 8.6MG TABLET (FP) PO SCH (21:58)
[2022-02-20] MEDS: VANCOMYCIN 250 MG/5 ML ORAL SOLUTION PO SCH ×4 (00:51→18:10)
[2022-02-20] MEDS: LEVOTHYROXINE NA 25 MCG TABLET (FP) PO SCH (06:14)
[2022-02-20] MEDS: INSULIN SLIDING SCALE (NOVOLOG) 1 VIAL SQ SCH ×4 (06:24→22:29)
[2022-02-20] MEDS: AMINO ACIDS/PROTEIN HYDROLYS 30 ML LIQUID.PKT PO SCH ×3 (08:13→17:48)
[2022-02-20] MEDS: ESCITALOPRAM OXALATE 10 MG TABLET PO SCH (10:51)
[2022-02-20] MEDS: FAMOTIDINE 10 MG TABLET PO SCH (10:51)
[2022-02-20] MEDS: COLLAGENASE CLOSTRIDIUM HIST. 30 GRAMS TUBE TP SCH (18:11)
[2022-02-20] MEDS: SODIUM HYPOCHLORITE 0.25%- 473 ML BULK BOTTLE TP SCH (18:12)
[2022-02-20] MEDS: AMITRIPTYLINE HCL 10 MG TABLET PO SCH (22:29)
[2022-02-20] MEDS: QUEtiapine FUMARATE 100 MG TABLET (FP) PO SCH (22:30)
[2022-02-20] MEDS: SENNOSIDES 8.6MG TABLET (FP) PO SCH (22:30)
[2022-02-21] MEDS: VANCOMYCIN 250 MG/5 ML ORAL SOLUTION PO SCH ×4 (01:14→17:42)
[2022-02-21] MEDS: LEVOTHYROXINE NA 25 MCG TABLET (FP) PO SCH (06:26)
[2022-02-21] MEDS: INSULIN SLIDING SCALE (NOVOLOG) 1 VIAL SQ SCH ×4 (06:36→22:56)
[2022-02-21] MEDS: AMINO ACIDS/PROTEIN HYDROLYS 30 ML LIQUID.PKT PO SCH ×3 (08:00→17:40)
[2022-02-21 09:09] LABS: BASO % 0.4 % (0-2.0); EOS % 1.3 % (0-4.5); HEMOGLOBIN 7.4 GM/dL (10.7-15.3); LYMPH % 13.7 % (8-40); MCH 30.2 pg (25.7-33.7); MCHC 31.9 g/dl (32.0-36.0); MEAN CELL VOLUME 94.5 fl (80-96); MEAN PLT VOLUME 7.7 fl (7.5-11.1); MONO % 10.7 % (3.8-10.2); NEUT % 73.9 % (42.8-82.8); PLATELET COUNT 237 10^3/uL (134-434); RBC 2.44 M/mm3 (3.60-5.2); RDW 17.7 % (11.6-15.6)
[2022-02-21 09:40] LABS: ALBUMIN 1.6 g/dl (3.4-5.0); BLOOD UREA NITROGEN 26.4 mg/dL (7-18); CALCIUM 7.5 mg/dL (8.5-10.1); MAGNESIUM 1.7 mg/dL (1.8-2.4)
[2022-02-21 09:41] LABS: CREATININE 2.6 mg/dL (0.55-1.3)
[2022-02-21 09:43] LABS: BILIRUBIN,TOTAL 0.4 mg/dL (0.2-1); TOT PROT 4.7 g/dl (6.4-8.2)
[2022-02-21] MEDS ORDERED: SODIUM CHLORIDE 250 ML IV PRN (10:41)
[2022-02-21] MEDS: FAMOTIDINE 10 MG TABLET PO SCH (11:15)
[2022-02-21] MEDS: ESCITALOPRAM OXALATE 10 MG TABLET PO SCH (11:15)
[2022-02-21] MEDS: COLLAGENASE CLOSTRIDIUM HIST. 30 GRAMS TUBE TP SCH (19:43)
[2022-02-21] MEDS: SODIUM HYPOCHLORITE 0.25%- 473 ML BULK BOTTLE TP SCH (19:43)
[2022-02-21] MEDS: SENNOSIDES 8.6MG TABLET (FP) PO SCH (22:03)
[2022-02-21] MEDS: QUEtiapine FUMARATE 100 MG TABLET (FP) PO SCH (22:55)
[2022-02-21] MEDS: AMITRIPTYLINE HCL 10 MG TABLET PO SCH (22:55)
[2022-02-21] MEDS: ACETAMINOPHEN 325 MG TABLET (FP) PO PRN (23:25)
[2022-02-22] MEDS: VANCOMYCIN 250 MG/5 ML ORAL SOLUTION PO SCH ×4 (02:18→17:40)
[2022-02-22] MEDS: LEVOTHYROXINE NA 25 MCG TABLET (FP) PO SCH (06:00)
[2022-02-22] MEDS: INSULIN SLIDING SCALE (NOVOLOG) 1 VIAL SQ SCH ×4 (06:00→22:01)
[2022-02-22] MEDS: AMINO ACIDS/PROTEIN HYDROLYS 30 ML LIQUID.PKT PO SCH ×3 (08:45→17:37)
[2022-02-22] MEDS ORDERED: EPOETIN ALFA-EPBX 20,000 UNIT/ML VIAL IVPUSH ONE (10:00)
[2022-02-22] MEDS: ESCITALOPRAM OXALATE 10 MG TABLET PO SCH (10:57)
[2022-02-22] MEDS: FAMOTIDINE 10 MG TABLET PO SCH (10:57)
[2022-02-22] MEDS: COLLAGENASE CLOSTRIDIUM HIST. 30 GRAMS TUBE TP SCH (17:09)
[2022-02-22] MEDS: SODIUM HYPOCHLORITE 0.25%- 473 ML BULK BOTTLE TP SCH (17:09)
[2022-02-22] MEDS: AMITRIPTYLINE HCL 10 MG TABLET PO SCH (21:54)
[2022-02-22] MEDS: SENNOSIDES 8.6MG TABLET (FP) PO SCH (21:54)
[2022-02-22] MEDS: QUEtiapine FUMARATE 100 MG TABLET (FP) PO SCH (21:55)
[2022-02-23] MEDS: VANCOMYCIN 250 MG/5 ML ORAL SOLUTION PO SCH ×5 (00:19→23:27)
[2022-02-23] MEDS ORDERED: ACETAMINOPHEN 325 MG TABLET (FP) PO ONE (04:29)
[2022-02-23] MEDS: INSULIN SLIDING SCALE (NOVOLOG) 1 VIAL SQ SCH ×4 (06:07→21:24)
[2022-02-23] MEDS: LEVOTHYROXINE NA 25 MCG TABLET (FP) PO SCH (06:08)
[2022-02-23] MEDS: FAMOTIDINE 10 MG TABLET PO SCH (10:51)
[2022-02-23] MEDS: ESCITALOPRAM OXALATE 10 MG TABLET PO SCH (10:51)
[2022-02-23] MEDS: AMINO ACIDS/PROTEIN HYDROLYS 30 ML LIQUID.PKT PO SCH ×4 (10:51→18:16)
[2022-02-23] MEDS: COLLAGENASE CLOSTRIDIUM HIST. 30 GRAMS TUBE TP SCH (10:52)
[2022-02-23] MEDS: SODIUM HYPOCHLORITE 0.25%- 473 ML BULK BOTTLE TP SCH (10:52)
[2022-02-23 11:42] LABS: BASO % 0.2 % (0-2.0); EOS % 0.9 % (0-4.5); HEMOGLOBIN 7.5 GM/dL (10.7-15.3); LYMPH % 15.4 % (8-40); MCHC 32.8 g/dl (32.0-36.0); MEAN CELL VOLUME 94.6 fl (80-96); MEAN PLT VOLUME 7.6 fl (7.5-11.1); MONO % 12.1 % (3.8-10.2); NEUT % 71.4 % (42.8-82.8); PLATELET COUNT 238 10^3/uL (134-434); RBC 2.43 M/mm3 (3.60-5.2); RDW 18.7 % (11.6-15.6); WHITE BLOOD COUNT 8.4 K/mm3 (4.0-10.0)
[2022-02-23 12:02] LABS: CALCIUM 8.1 mg/dL (8.5-10.1)
[2022-02-23 12:03] LABS: ALBUMIN 1.7 g/dl (3.4-5.0); BLOOD UREA NITROGEN 20.6 mg/dL (7-18); MAGNESIUM 1.9 mg/dL (1.8-2.4)
[2022-02-23 12:06] LABS: CREATININE 2.2 mg/dL (0.55-1.3)
[2022-02-23 12:07] LABS: BILIRUBIN,TOTAL 0.3 mg/dL (0.2-1); TOT PROT 4.8 g/dl (6.4-8.2)
[2022-02-23] MEDS ORDERED: SODIUM CHLORIDE 250 ML IV PRN (18:19)
[2022-02-23] MEDS: SENNOSIDES 8.6MG TABLET (FP) PO SCH (21:25)
[2022-02-23] MEDS: QUEtiapine FUMARATE 100 MG TABLET (FP) PO SCH (21:25)
[2022-02-23] MEDS: AMITRIPTYLINE HCL 10 MG TABLET PO SCH (21:26)
[2022-02-23] MEDS: HEPARIN NA (PORCINE) 5,000 UNITS/ML 1ML VIAL SQ SCH (21:33)
[2022-02-24] MEDS: VANCOMYCIN 250 MG/5 ML ORAL SOLUTION PO SCH ×3 (06:35→19:33)
[2022-02-24] MEDS: LEVOTHYROXINE NA 25 MCG TABLET (FP) PO SCH (06:35)
[2022-02-24] MEDS: INSULIN SLIDING SCALE (NOVOLOG) 1 VIAL SQ SCH ×4 (06:38→23:13)
[2022-02-24] MEDS: AMINO ACIDS/PROTEIN HYDROLYS 30 ML LIQUID.PKT PO SCH ×3 (09:26→16:32)
[2022-02-24] MEDS: ESCITALOPRAM OXALATE 10 MG TABLET PO SCH (10:46)
[2022-02-24] MEDS: SODIUM HYPOCHLORITE 0.25%- 473 ML BULK BOTTLE TP SCH (10:46)
[2022-02-24] MEDS: HEPARIN NA (PORCINE) 5,000 UNITS/ML 1ML VIAL SQ SCH ×2 (10:46→23:00)
[2022-02-24] MEDS: COLLAGENASE CLOSTRIDIUM HIST. 30 GRAMS TUBE TP SCH (10:46)
[2022-02-24] MEDS: FAMOTIDINE 10 MG TABLET PO SCH (10:46)
[2022-02-24 17:12] LABS: BASO % 0.2 % (0-2.0); EOS % 0.5 % (0-4.5); HEMATOCRIT 23.7 % (32.4-45.2); HEMOGLOBIN 7.7 GM/dL (10.7-15.3); LYMPH % 8.1 % (8-40); MCH 30.5 pg (25.7-33.7); MCHC 32.5 g/dl (32.0-36.0); MEAN CELL VOLUME 93.9 fl (80-96); MEAN PLT VOLUME 7.9 fl (7.5-11.1); NEUT % 85.2 % (42.8-82.8); PLATELET COUNT 251 10^3/uL (134-434); RBC 2.52 M/mm3 (3.60-5.2); RDW 18.3 % (11.6-15.6); WHITE BLOOD COUNT 13.2 K/mm3 (4.0-10.0)
[2022-02-24] MEDS ORDERED: EPOETIN ALFA-EPBX 20,000 UNIT/ML VIAL SQ ONE (17:30)
[2022-02-24 17:33] LABS: ALBUMIN 1.7 g/dl (3.4-5.0); BLOOD UREA NITROGEN 35.2 mg/dL (7-18); MAGNESIUM 1.9 mg/dL (1.8-2.4)
[2022-02-24 17:36] LABS: CREATININE 3.3 mg/dL (0.55-1.3)
[2022-02-24 17:38] LABS: BILIRUBIN,TOTAL 0.3 mg/dL (0.2-1)
[2022-02-24] MEDS: SENNOSIDES 8.6MG TABLET (FP) PO SCH (23:00)
[2022-02-24] MEDS: QUEtiapine FUMARATE 100 MG TABLET (FP) PO SCH (23:00)
[2022-02-24] MEDS: AMITRIPTYLINE HCL 10 MG TABLET PO SCH (23:00)
[2022-02-25] MEDS: VANCOMYCIN 250 MG/5 ML ORAL SOLUTION PO SCH ×5 (01:04→23:46)
[2022-02-25] MEDS: LEVOTHYROXINE NA 25 MCG TABLET (FP) PO SCH (07:18)
[2022-02-25] MEDS ORDERED: INSULIN (NOVOLOG) ASPART 100 UNITS/ML 10ML VIAL ONE ×2 (07:48→21:55)
[2022-02-25] MEDS: INSULIN SLIDING SCALE (NOVOLOG) 1 VIAL SQ SCH ×4 (07:50→22:44)
[2022-02-25 10:34] LABS: BASO % 0.3 % (0-2.0); EOS % 0.5 % (0-4.5); HEMOGLOBIN 7.3 GM/dL (10.7-15.3); LYMPH % 12.8 % (8-40); MCHC 31.7 g/dl (32.0-36.0); MEAN CELL VOLUME 94.5 fl (80-96); MONO % 6.3 % (3.8-10.2); NEUT % 80.1 % (42.8-82.8); PLATELET COUNT 244 10^3/uL (134-434); RBC 2.43 M/mm3 (3.60-5.2); RDW 18.6 % (11.6-15.6); WHITE BLOOD COUNT 10.3 K/mm3 (4.0-10.0)
[2022-02-25 11:12] LABS: ALBUMIN 1.6 g/dl (3.4-5.0); BLOOD UREA NITROGEN 16.2 mg/dL (7-18); CALCIUM 8.1 mg/dL (8.5-10.1); MAGNESIUM 1.7 mg/dL (1.8-2.4)
[2022-02-25 11:14] LABS: CREATININE 1.9 mg/dL (0.55-1.3)
[2022-02-25 11:17] LABS: BILIRUBIN,TOTAL 0.4 mg/dL (0.2-1); TOT PROT 4.9 g/dl (6.4-8.2)
[2022-02-25] MEDS: HEPARIN NA (PORCINE) 5,000 UNITS/ML 1ML VIAL SQ SCH ×2 (11:26→22:27)
[2022-02-25] MEDS: AMINO ACIDS/PROTEIN HYDROLYS 30 ML LIQUID.PKT PO SCH ×2 (11:26→17:53)
[2022-02-25] MEDS: SODIUM HYPOCHLORITE 0.25%- 473 ML BULK BOTTLE TP SCH ×2 (11:27→17:53)
[2022-02-25] MEDS: ESCITALOPRAM OXALATE 10 MG TABLET PO SCH (11:27)
[2022-02-25] MEDS: FAMOTIDINE 10 MG TABLET PO SCH (11:27)
[2022-02-25] MEDS: COLLAGENASE CLOSTRIDIUM HIST. 30 GRAMS TUBE TP SCH ×2 (11:28→17:53)
[2022-02-25] MEDS: ACETAMINOPHEN 325 MG TABLET (FP) PO PRN (16:45)
[2022-02-25] MEDS: SENNOSIDES 8.6MG TABLET (FP) PO SCH (22:26)
[2022-02-25] MEDS: QUEtiapine FUMARATE 100 MG TABLET (FP) PO SCH (22:26)
[2022-02-25] MEDS: AMITRIPTYLINE HCL 10 MG TABLET PO SCH (22:26)
[2022-02-26] MEDS: VANCOMYCIN 250 MG/5 ML ORAL SOLUTION PO SCH (06:54)
[2022-02-26] MEDS: LEVOTHYROXINE NA 25 MCG TABLET (FP) PO SCH (06:55)
[2022-02-26] MEDS: ACETAMINOPHEN 325 MG TABLET (FP) PO PRN ×2 (06:57→19:43)
[2022-02-26] MEDS: INSULIN SLIDING SCALE (NOVOLOG) 1 VIAL SQ SCH ×4 (07:09→21:59)
[2022-02-26] MEDS: ESCITALOPRAM OXALATE 10 MG TABLET PO SCH (10:06)
[2022-02-26] MEDS: HEPARIN NA (PORCINE) 5,000 UNITS/ML 1ML VIAL SQ SCH ×2 (10:06→21:53)
[2022-02-26] MEDS: FAMOTIDINE 10 MG TABLET PO SCH (10:06)
[2022-02-26] MEDS: AMINO ACIDS/PROTEIN HYDROLYS 30 ML LIQUID.PKT PO SCH ×3 (10:06→17:58)
[2022-02-26 11:33] LABS: BASO % 0.5 % (0-2.0); EOS % 0.2 % (0-4.5); HEMOGLOBIN 7.2 GM/dL (10.7-15.3); LYMPH % 10.4 % (8-40); MCH 30.8 pg (25.7-33.7); MCHC 32.6 g/dl (32.0-36.0); MEAN CELL VOLUME 94.5 fl (80-96); MEAN PLT VOLUME 7.8 fl (7.5-11.1); MONO % 6.6 % (3.8-10.2); NEUT % 82.3 % (42.8-82.8); PLATELET COUNT 209 10^3/uL (134-434); RBC 2.32 M/mm3 (3.60-5.2); RDW 18.5 % (11.6-15.6); WHITE BLOOD COUNT 9.6 K/mm3 (4.0-10.0)
[2022-02-26 11:58] LABS: ALBUMIN 1.5 g/dl (3.4-5.0); BLOOD UREA NITROGEN 28.5 mg/dL (7-18); MAGNESIUM 1.8 mg/dL (1.8-2.4)
[2022-02-26 12:00] LABS: CREATININE 2.7 mg/dL (0.55-1.3)
[2022-02-26 12:01] LABS: BILIRUBIN,TOTAL 0.4 mg/dL (0.2-1); TOT PROT 4.8 g/dl (6.4-8.2)
[2022-02-26] MEDS ORDERED: EPOETIN ALFA-EPBX 20,000 UNIT/ML VIAL IVPUSH ONE ×2 (13:00→15:00)
[2022-02-26] MEDS ORDERED: SODIUM CHLORIDE 250 ML IV PRN (14:11)
[2022-02-26] MEDS: SODIUM HYPOCHLORITE 0.25%- 473 ML BULK BOTTLE TP SCH (17:57)
[2022-02-26] MEDS: COLLAGENASE CLOSTRIDIUM HIST. 30 GRAMS TUBE TP SCH (17:57)
[2022-02-26] MEDS: AMITRIPTYLINE HCL 10 MG TABLET PO SCH (21:53)
[2022-02-26] MEDS: SENNOSIDES 8.6MG TABLET (FP) PO SCH (21:54)
[2022-02-26] MEDS: QUEtiapine FUMARATE 100 MG TABLET (FP) PO SCH (21:54)
[2022-02-26] MEDS ORDERED: NYSTATIN 100,000 UNIT/GM TOPICAL CREAM 15 GM TUBE TP SCH (22:00)
[2022-02-27] MEDS: LEVOTHYROXINE NA 25 MCG TABLET (FP) PO SCH (06:32)
[2022-02-27] MEDS: INSULIN SLIDING SCALE (NOVOLOG) 1 VIAL SQ SCH ×4 (06:33→23:38)
[2022-02-27] MEDS: SODIUM HYPOCHLORITE 0.25%- 473 ML BULK BOTTLE TP SCH (10:13)
[2022-02-27] MEDS: FAMOTIDINE 10 MG TABLET PO SCH (10:13)
[2022-02-27] MEDS: HEPARIN NA (PORCINE) 5,000 UNITS/ML 1ML VIAL SQ SCH ×2 (10:13→21:58)
[2022-02-27] MEDS: AMINO ACIDS/PROTEIN HYDROLYS 30 ML LIQUID.PKT PO SCH ×3 (10:13→17:17)
[2022-02-27] MEDS: COLLAGENASE CLOSTRIDIUM HIST. 30 GRAMS TUBE TP SCH (10:13)
[2022-02-27] MEDS: ESCITALOPRAM OXALATE 10 MG TABLET PO SCH (10:13)
[2022-02-27] MEDS: ACETAMINOPHEN 325 MG TABLET (FP) PO PRN (20:14)
[2022-02-27] MEDS: AMITRIPTYLINE HCL 10 MG TABLET PO SCH (21:57)
[2022-02-27] MEDS: SENNOSIDES 8.6MG TABLET (FP) PO SCH (21:58)
[2022-02-27] MEDS: QUEtiapine FUMARATE 100 MG TABLET (FP) PO SCH (21:58)
[2022-02-27 22:31] VITALS: RESP 18
[2022-02-28] MEDS: INSULIN SLIDING SCALE (NOVOLOG) 1 VIAL SQ SCH ×2 (06:19→12:51)
[2022-02-28] MEDS: LEVOTHYROXINE NA 25 MCG TABLET (FP) PO SCH (06:19)
[2022-02-28] MEDS: AMINO ACIDS/PROTEIN HYDROLYS 30 ML LIQUID.PKT PO SCH ×2 (08:57→14:21)
[2022-02-28 09:48] LABS: BASO % 0.3 % (0-2.0); EOS % 0.7 % (0-4.5); HEMATOCRIT 23.7 % (32.4-45.2); HEMOGLOBIN 7.4 GM/dL (10.7-15.3); LYMPH % 12.6 % (8-40); MCH 29.7 pg (25.7-33.7); MCHC 31.1 g/dl (32.0-36.0); MEAN CELL VOLUME 95.4 fl (80-96); MEAN PLT VOLUME 8.2 fl (7.5-11.1); MONO % 5.4 % (3.8-10.2); PLATELET COUNT 241 10^3/uL (134-434); RBC 2.49 M/mm3 (3.60-5.2); RDW 18.1 % (11.6-15.6)
[2022-02-28 10:06] LABS: ALBUMIN 1.6 g/dl (3.4-5.0); BLOOD UREA NITROGEN 33.5 mg/dL (7-18); CALCIUM 8.1 mg/dL (8.5-10.1)
[2022-02-28 10:10] LABS: CREATININE 2.6 mg/dL (0.55-1.3)
[2022-02-28 10:13] LABS: BILIRUBIN,TOTAL 0.3 mg/dL (0.2-1)
[2022-02-28 10:15] LABS: TOT PROT 4.9 g/dl (6.4-8.2)
[2022-02-28] MEDS: ESCITALOPRAM OXALATE 10 MG TABLET PO SCH (10:26)
[2022-02-28] MEDS: FAMOTIDINE 10 MG TABLET PO SCH (10:26)
[2022-02-28] MEDS: HEPARIN NA (PORCINE) 5,000 UNITS/ML 1ML VIAL SQ SCH (10:26)
[2022-02-28] MEDS: COLLAGENASE CLOSTRIDIUM HIST. 30 GRAMS TUBE TP SCH (10:28)
[2022-02-28] MEDS: ACETAMINOPHEN 325 MG TABLET (FP) PO PRN (17:13)
[2022-02-28] MEDS: SODIUM HYPOCHLORITE 0.25%- 473 ML BULK BOTTLE TP SCH (17:16)
[2022-02-28 18:53] VITALS: BP 135/88; PULSE 109; TEMP 100.8
== END 2022-02-28 18:55 | DRG 853 ==
LOC: JER 00:02 → JERBED 04:48 → J8W 02-01 00:50 → OBSVTOIN 02-02 09:42
PROVIDERS: ADMIT Hospitalist; ATTEND Nurse Practitioner Family
PROC: 30233N1 Transfusion of Nonautologous Red Blood Cells into Peripheral Vein, Percutaneous Approach (ICD-10-PCS; 2022-01-31)
PROC: F08 Physical Rehabilitation and Diagnostic Audiology, Rehabilitation, Activities of Daily Living Treatment (ICD-10-PCS; 2022-02-03)
PROC: 0JB70ZZ Excision of Back Subcutaneous Tissue and Fascia, Open Approach (ICD-10-PCS; principal; 2022-02-03 12:00)
PROC: XW033E5 Introduction of Remdesivir Anti-infective into Peripheral Vein, Percutaneous Approach, New Technology Group 5 (ICD-10-PCS; 2022-02-11)
PROC: 5A1D70Z Performance of Urinary Filtration, Intermittent, Less than 6 Hours Per Day (ICD-10-PCS; 2022-02-26)
DX: A41.9 Sepsis, unspecified organism (principal); L89.154 Pressure ulcer of sacral region, stage 4; N18.6 End stage renal disease; U07.1 COVID-19; G82.20 Paraplegia, unspecified; M86.9 Osteomyelitis, unspecified; R57.9 Shock, unspecified; A04.72 Enterocolitis due to Clostridium difficile, not specified as recurrent; D63.1 Anemia in chronic kidney disease; F31.9 Bipolar disorder, unspecified; Z99.2 Dependence on renal dialysis; E03.9 Hypothyroidism, unspecified; K21.9 Gastro-esophageal reflux disease without esophagitis; E87.6 Hypokalemia
CPT/HCPCS: 0241U-QW; 36415; 36430; 71045-TC-FY; 71250-TC; 73718-TC-LT; 74176-TC; 80048; 80053; 81003; 82272; 82728; 82962; 83036; 83605; 83735; 84100; 85025; 85027; 85379; 85610; 85730; 86140; 86803; 86850; 86900; 86901; 86922; 87040; 87070; 87086; 87186; 87205; 87324; 87340; 87449; 88304-TC; 90677; 93005; 93010; 93970-TC; 94760; 99285-25; C9399; C9803-CS; G0378; J0878; J1644; P9058; Q5106; U0003; U0005

== ENCOUNTER 2022-03-11 16:33 | Inpatient (IN) | payer OTHER ==
[2022-03-11 17:07] VITALS: BMI 22.2
[2022-03-11 19:09] LABS: BASO % 0.3 % (0-2.0); EOS % 1.9 % (0-4.5); HEMATOCRIT 25.6 % (32.4-45.2); HEMOGLOBIN 7.9 GM/dL (10.7-15.3); LYMPH % 12.4 % (8-40); MCH 29.1 pg (25.7-33.7); MCHC 30.8 g/dl (32.0-36.0); MEAN CELL VOLUME 94.3 fl (80-96); MEAN PLT VOLUME 7.6 fl (7.5-11.1); NEUT % 79.4 % (42.8-82.8); PLATELET COUNT 338 10^3/uL (134-434); RBC 2.71 M/mm3 (3.60-5.2); RDW 17.7 % (11.6-15.6); WHITE BLOOD COUNT 12.2 K/mm3 (4.0-10.0)
[2022-03-11 19:23] LABS: CHLORIDE 104 mmol/L (98-107); SODIUM 139 mmol/L (136-145)
[2022-03-11 19:27] LABS: CO2 22 mmol/L (21-32); GLUCOSE,RANDOM 90 mg/dL (74-106); MAGNESIUM 2.3 mg/dL (1.8-2.4)
[2022-03-11 19:30] LABS: BILIRUBIN,TOTAL 0.3 mg/dL (0.2-1); CREATININE 4.5 mg/dL (0.55-1.3); PHOSPHOROUS 4.5 mg/dL (2.5-4.9); SGOT/AST 38 U/L (15-37); SGPT/ALT 33 U/L (13-61)
[2022-03-11 19:31] LABS: TOT PROT 6.7 g/dl (6.4-8.2)
[2022-03-11 19:53] LABS: ALK PHOS 134 U/L (45-117); ANION GAP 13 MMOL/L (8-16); BLOOD UREA NITROGEN 74.5 mg/dL (7-18); CALCIUM 9.7 mg/dL (8.5-10.1)
[2022-03-11 20:48] LABS: INR 1.28 (0.83-1.09); PROTHROMBIN TIME (PATIENT) 14.8 SEC (9.7-13.0)
[2022-03-11 20:50] LABS: ACTIVATED PTT 30.3 SECONDS (25.2-36.5)
[2022-03-11 20:53] LABS: CHLORIDE 107 mmol/L (98-107); SODIUM 139 mmol/L (136-145)
[2022-03-11 20:56] LABS: BLOOD UREA NITROGEN 74.4 mg/dL (7-18); CALCIUM 8.9 mg/dL (8.5-10.1); CO2 20 mmol/L (21-32); GLUCOSE,RANDOM 109 mg/dL (74-106)
[2022-03-11 20:59] LABS: CREATININE 4.5 mg/dL (0.55-1.3)
[2022-03-11 21:50] LABS: ANION GAP 12 MMOL/L (8-16)
[2022-03-11] MEDS ORDERED: CALCIUM GLUCONATE 10% - 1,000 MG/10 ML VIAL IVPUSH ONE (21:50)
[2022-03-11] MEDS ORDERED: SODIUM ZIRCONIUM CYCLOSILICATE (LOKELMA) 5 GM PACKET PO ONE (21:50)
[2022-03-11] MEDS ORDERED: DEXTROSE 50%-WATER - 25 GM/50 ML VIAL IVPUSH ONE (21:50)
[2022-03-11] MEDS ORDERED: INSULIN REGULAR HUMAN 100 UNITS/ML *VIAL IVPUSH ONE (21:50)
[2022-03-11] MEDS ORDERED: CALCIUM GLUCONATE 10% - 1,000 MG/10 ML VIAL ONE (21:55)
[2022-03-11] MEDS ORDERED: SODIUM ZIRCONIUM CYCLOSILICATE (LOKELMA) 5 GM PACKET ONE (21:55)
[2022-03-11] MEDS ORDERED: DEXTROSE 50%-WATER 25 GM/50 ML DISP.SYRIN ONE (21:55)
[2022-03-12 07:00] LABS: BASO % 0.5 % (0-2.0); EOS % 1.5 % (0-4.5); HEMATOCRIT 22.2 % (32.4-45.2); LYMPH % 11.7 % (8-40); MCH 28.3 pg (25.7-33.7); MEAN CELL VOLUME 94.3 fl (80-96); MEAN PLT VOLUME 7.9 fl (7.5-11.1); MONO % 8.1 % (3.8-10.2); NEUT % 78.2 % (42.8-82.8); PLATELET COUNT 330 10^3/uL (134-434); RBC 2.35 M/mm3 (3.60-5.2); RDW 17.6 % (11.6-15.6); WHITE BLOOD COUNT 12.8 K/mm3 (4.0-10.0)
[2022-03-12 07:16] LABS: CHLORIDE 108 mmol/L (98-107); SODIUM 140 mmol/L (136-145)
[2022-03-12 07:17] LABS: CO2 21 mmol/L (21-32)
[2022-03-12 07:18] LABS: BLOOD UREA NITROGEN 81.2 mg/dL (7-18); GLUCOSE,RANDOM 109 mg/dL (74-106)
[2022-03-12 07:21] LABS: HEMOGLOBIN 6.7 GM/dL (10.7-15.3)
[2022-03-12 07:22] LABS: CREATININE 4.7 mg/dL (0.55-1.3)
[2022-03-12 07:28] LABS: ANION GAP 11 MMOL/L (8-16)
[2022-03-12] MEDS ORDERED: MIDODRINE HCL 5 MG TABLET PO PRN (08:10)
[2022-03-12] MEDS ORDERED: SENNOSIDES 8.6MG TABLET (FP) PO PRN (08:23)
[2022-03-12] MEDS: AMINO ACIDS/PROTEIN HYDROLYS 30 ML LIQUID.PKT PO SCH ×3 (08:51→17:38)
[2022-03-12] MEDS: VITAMIN B COMP W-C 1 EA TABLET (NEPHRO-VITE) PO SCH (10:19)
[2022-03-12] MEDS: SODIUM ZIRCONIUM CYCLOSILICATE (LOKELMA) 5 GM PACKET PO SCH (10:19)
[2022-03-12] MEDS: CYANOCOBALAMIN 1,000 MCG TABLET (FP) PO SCH (10:19)
[2022-03-12] MEDS: ESCITALOPRAM OXALATE 10 MG TABLET PO SCH (10:19)
[2022-03-12] MEDS: FAMOTIDINE 20 MG TABLET PO SCH (10:19)
[2022-03-12] MEDS: LEVOTHYROXINE NA 25 MCG TABLET (FP) PO SCH (10:19)
[2022-03-12] MEDS ORDERED: ALTEPLASE (CATHFLO) 2 MG/2 ML VIAL CVP ONE ×2 (11:00)
[2022-03-12] MEDS: SODIUM HYPOCHLORITE 0.25%- 473 ML BULK BOTTLE TP SCH (11:45)
[2022-03-12] MEDS: INSULIN SLIDING SCALE (NOVOLOG) 1 VIAL SQ SCH ×3 (11:49→22:22)
[2022-03-12] MEDS: CALCIUM ACETATE 667 MG CAPSULE (FP) PO SCH ×2 (11:50→17:38)
[2022-03-12] MEDS: ACETAMINOPHEN 325 MG TABLET (FP) PO PRN (12:10)
[2022-03-12] MEDS ORDERED: EPOETIN ALFA-EPBX 10,000 UNIT/ML VIAL IVPUSH ONE (12:30)
[2022-03-12] MEDS ORDERED: LORazepam 2 MG/ML SDV VIAL IVPUSH ONE (12:40)
[2022-03-12 17:57] LABS: BLOOD UREA NITROGEN 57.3 mg/dL (7-18); CALCIUM 8.3 mg/dL (8.5-10.1)
[2022-03-12 18:00] LABS: CREATININE 3.3 mg/dL (0.55-1.3)
[2022-03-12] MEDS ORDERED: QUEtiapine FUMARATE 100 MG TABLET (FP) ONE (21:47)
[2022-03-12] MEDS ORDERED: ROSUVASTATIN CA 20 MG TABLET PO SCH (22:00)
[2022-03-12] MEDS: AMITRIPTYLINE HCL 10 MG TABLET PO SCH (22:01)
[2022-03-12] MEDS: QUEtiapine FUMARATE 300 MG TABLET PO SCH (22:02)
[2022-03-13] MEDS: ACETAMINOPHEN 325 MG TABLET (FP) PO PRN ×2 (06:37→21:02)
[2022-03-13] MEDS: LEVOTHYROXINE NA 25 MCG TABLET (FP) PO SCH (06:37)
[2022-03-13] MEDS: INSULIN SLIDING SCALE (NOVOLOG) 1 VIAL SQ SCH ×4 (06:45→21:20)
[2022-03-13] MEDS: CALCIUM ACETATE 667 MG CAPSULE (FP) PO SCH ×3 (08:13→17:12)
[2022-03-13] MEDS: AMINO ACIDS/PROTEIN HYDROLYS 30 ML LIQUID.PKT PO SCH ×3 (08:13→17:13)
[2022-03-13 08:33] LABS: BASO % 0.4 % (0-2.0); EOS % 2.1 % (0-4.5); HEMATOCRIT 22.9 % (32.4-45.2); HEMOGLOBIN 7.3 GM/dL (10.7-15.3); LYMPH % 12.9 % (8-40); MCH 29.4 pg (25.7-33.7); MCHC 31.7 g/dl (32.0-36.0); MEAN CELL VOLUME 92.7 fl (80-96); MEAN PLT VOLUME 7.5 fl (7.5-11.1); MONO % 7.8 % (3.8-10.2); NEUT % 76.8 % (42.8-82.8); PLATELET COUNT 285 10^3/uL (134-434); RBC 2.48 M/mm3 (3.60-5.2); RDW 16.9 % (11.6-15.6); WHITE BLOOD COUNT 9.7 K/mm3 (4.0-10.0)
[2022-03-13 08:51] LABS: BLOOD UREA NITROGEN 69.4 mg/dL (7-18); CALCIUM 8.3 mg/dL (8.5-10.1)
[2022-03-13 08:55] LABS: CREATININE 4.1 mg/dL (0.55-1.3)
[2022-03-13 08:56] LABS: BILIRUBIN,TOTAL 0.3 mg/dL (0.2-1); TOT PROT 5.2 g/dl (6.4-8.2)
[2022-03-13 09:00] LABS: ALBUMIN 1.5 g/dl (3.4-5.0)
[2022-03-13] MEDS: SODIUM HYPOCHLORITE 0.25%- 473 ML BULK BOTTLE TP SCH (09:57)
[2022-03-13] MEDS: VITAMIN B COMP W-C 1 EA TABLET (NEPHRO-VITE) PO SCH (09:57)
[2022-03-13] MEDS: SODIUM ZIRCONIUM CYCLOSILICATE (LOKELMA) 5 GM PACKET PO SCH (09:57)
[2022-03-13] MEDS: CYANOCOBALAMIN 1,000 MCG TABLET (FP) PO SCH (09:57)
[2022-03-13] MEDS: ESCITALOPRAM OXALATE 10 MG TABLET PO SCH (09:58)
[2022-03-13] MEDS: COLLAGENASE CLOSTRIDIUM HIST. 30 GRAMS TUBE TP SCH (09:58)
[2022-03-13] MEDS: FAMOTIDINE 20 MG TABLET PO SCH (09:58)
[2022-03-13] MEDS ORDERED: MIDODRINE HCL 5 MG TABLET PO PRN (12:42)
[2022-03-13] MEDS ORDERED: LEVOTHYROXINE SODIUM 100 MCG VIAL IVPUSH SCH (14:30)
[2022-03-13] MEDS ORDERED: MIDODRINE HCL 2.5 MG TABLET PO SCH (18:00)
[2022-03-13] MEDS ORDERED: QUEtiapine FUMARATE 100 MG TABLET (FP) ONE (20:38)
[2022-03-13] MEDS: QUEtiapine FUMARATE 300 MG TABLET PO SCH (21:01)
[2022-03-13] MEDS: AMITRIPTYLINE HCL 10 MG TABLET PO SCH (21:02)
[2022-03-14] MEDS ORDERED: EPOETIN ALFA-EPBX 10,000 UNIT/ML VIAL IVPUSH ONE (06:00)
[2022-03-14] MEDS: INSULIN SLIDING SCALE (NOVOLOG) 1 VIAL SQ SCH ×4 (06:29→22:08)
[2022-03-14] MEDS: LEVOTHYROXINE NA 25 MCG TABLET (FP) PO SCH (06:30)
[2022-03-14] MEDS: ACETAMINOPHEN 325 MG TABLET (FP) PO PRN ×2 (06:30→13:17)
[2022-03-14] MEDS: CALCIUM ACETATE 667 MG CAPSULE (FP) PO SCH ×3 (08:24→17:17)
[2022-03-14] MEDS: AMINO ACIDS/PROTEIN HYDROLYS 30 ML LIQUID.PKT PO SCH ×4 (08:24→17:19)
[2022-03-14] MEDS: MIDODRINE HCL 5 MG TABLET PO PRN (08:25)
[2022-03-14 08:46] LABS: BASO % 0.4 % (0-2.0); EOS % 2.2 % (0-4.5); HEMATOCRIT 21.5 % (32.4-45.2); LYMPH % 13.4 % (8-40); MCH 29.8 pg (25.7-33.7); MCHC 31.6 g/dl (32.0-36.0); MEAN CELL VOLUME 94.3 fl (80-96); MEAN PLT VOLUME 7.8 fl (7.5-11.1); MONO % 6.7 % (3.8-10.2); NEUT % 77.3 % (42.8-82.8); PLATELET COUNT 299 10^3/uL (134-434); RBC 2.28 M/mm3 (3.60-5.2); RDW 16.4 % (11.6-15.6); WHITE BLOOD COUNT 10.9 K/mm3 (4.0-10.0)
[2022-03-14 09:13] LABS: HEMOGLOBIN 6.8 GM/dL (10.7-15.3)
[2022-03-14 09:17] LABS: BLOOD UREA NITROGEN 84.4 mg/dL (7-18); CALCIUM 8.5 mg/dL (8.5-10.1)
[2022-03-14 09:22] LABS: CREATININE 4.6 mg/dL (0.55-1.3)
[2022-03-14] MEDS: COLLAGENASE CLOSTRIDIUM HIST. 30 GRAMS TUBE TP SCH (10:30)
[2022-03-14] MEDS: SODIUM HYPOCHLORITE 0.25%- 473 ML BULK BOTTLE TP SCH (10:30)
[2022-03-14] MEDS: FAMOTIDINE 20 MG TABLET PO SCH (10:44)
[2022-03-14] MEDS: ESCITALOPRAM OXALATE 10 MG TABLET PO SCH (10:44)
[2022-03-14] MEDS: CYANOCOBALAMIN 1,000 MCG TABLET (FP) PO SCH (10:45)
[2022-03-14] MEDS: SODIUM ZIRCONIUM CYCLOSILICATE (LOKELMA) 5 GM PACKET PO SCH (10:45)
[2022-03-14] MEDS: VITAMIN B COMP W-C 1 EA TABLET (NEPHRO-VITE) PO SCH (10:45)
[2022-03-14] MEDS: AMITRIPTYLINE HCL 10 MG TABLET PO SCH (22:08)
[2022-03-14] MEDS: QUEtiapine FUMARATE 300 MG TABLET PO SCH (22:23)
[2022-03-15] MEDS: LEVOTHYROXINE NA 25 MCG TABLET (FP) PO SCH (06:06)
[2022-03-15] MEDS: INSULIN SLIDING SCALE (NOVOLOG) 1 VIAL SQ SCH ×4 (06:15→21:05)
[2022-03-15] MEDS: AMINO ACIDS/PROTEIN HYDROLYS 30 ML LIQUID.PKT PO SCH ×4 (10:03→17:21)
[2022-03-15] MEDS: MIDODRINE HCL 5 MG TABLET PO PRN (10:03)
[2022-03-15] MEDS: SODIUM ZIRCONIUM CYCLOSILICATE (LOKELMA) 5 GM PACKET PO SCH (10:03)
[2022-03-15] MEDS: CYANOCOBALAMIN 1,000 MCG TABLET (FP) PO SCH (10:03)
[2022-03-15] MEDS: VITAMIN B COMP W-C 1 EA TABLET (NEPHRO-VITE) PO SCH (10:03)
[2022-03-15] MEDS: FAMOTIDINE 20 MG TABLET PO SCH (10:03)
[2022-03-15] MEDS: SODIUM HYPOCHLORITE 0.25%- 473 ML BULK BOTTLE TP SCH ×2 (10:03→10:04)
[2022-03-15] MEDS: ESCITALOPRAM OXALATE 10 MG TABLET PO SCH (10:03)
[2022-03-15] MEDS: CALCIUM ACETATE 667 MG CAPSULE (FP) PO SCH ×4 (10:04→17:21)
[2022-03-15] MEDS: COLLAGENASE CLOSTRIDIUM HIST. 30 GRAMS TUBE TP SCH (10:04)
[2022-03-15] MEDS ORDERED: ROCURONIUM BROMIDE 50 MG/5 ML SYRINGE ONE (10:50)
[2022-03-15 11:53] VITALS: RESP 18
[2022-03-15 12:04] LABS: BASO % 0.3 % (0-2.0); EOS % 1.9 % (0-4.5); HEMATOCRIT 21.2 % (32.4-45.2); LYMPH % 12.6 % (8-40); MCH 29.4 pg (25.7-33.7); MCHC 30.9 g/dl (32.0-36.0); MEAN CELL VOLUME 95.1 fl (80-96); MEAN PLT VOLUME 7.4 fl (7.5-11.1); MONO % 6.1 % (3.8-10.2); NEUT % 79.1 % (42.8-82.8); PLATELET COUNT 286 10^3/uL (134-434); RBC 2.22 M/mm3 (3.60-5.2); RDW 16.7 % (11.6-15.6); WHITE BLOOD COUNT 11.5 K/mm3 (4.0-10.0)
[2022-03-15] MEDS ORDERED: SEVOFLURANE 250 ML BTL ONE ×2 (12:17→14:03)
[2022-03-15 12:24] LABS: HEMOGLOBIN 6.5 GM/dL (10.7-15.3)
[2022-03-15 12:27] LABS: CALCIUM 8.8 mg/dL (8.5-10.1)
[2022-03-15 12:29] LABS: CREATININE 4.7 mg/dL (0.55-1.3)
[2022-03-15] MEDS ORDERED: ONDANSETRON 4 MG/2 ML VIAL ONE ×2 (13:04→15:31)
[2022-03-15] MEDS ORDERED: ETOMIDATE 20 MG/10 ML AMPUL IVPUSH ONE (13:04)
[2022-03-15] MEDS ORDERED: DEXAMETHASONE SOD PHOSPHATE 4 MG/1 ML VIAL ONE (13:04)
[2022-03-15] MEDS ORDERED: PROPOFOL 20 ML ONE (13:05)
[2022-03-15] MEDS ORDERED: HEPARIN NA (PORCINE) 5,000 UNITS/ML 1ML VIAL ONE (13:08)
[2022-03-15] MEDS ORDERED: LIDOCAINE HCL 1%, 10 MG/ML (20ML VIAL) ONE (13:08)
[2022-03-15] MEDS ORDERED: VANCOMYCIN 1,000 MG VIAL (RESTRICTED TO ID ONLY) ONE (14:10)
[2022-03-15] MEDS ORDERED: VANCOMYCIN 1,000 MG VIAL (RESTRICTED TO ID ONLY) IVPB ONE (14:30)
[2022-03-15] MEDS ORDERED: SUGAMMADEX SODIUM 200 MG/2 ML VIAL ONE (14:41)
[2022-03-15] MEDS ORDERED: MIDODRINE HCL 5 MG TABLET PO PRN (16:19)
[2022-03-15] MEDS ORDERED: EPOETIN ALFA-EPBX 10,000 UNIT/ML VIAL IVPUSH ONE (16:19)
[2022-03-15] MEDS ORDERED: ACETAMINOPHEN 325 MG TABLET (FP) PO PRN (16:19)
[2022-03-15] MEDS ORDERED: SENNOSIDES 8.6MG TABLET (FP) PO PRN (16:19)
[2022-03-15] MEDS ORDERED: ROSUVASTATIN CA 20 MG TABLET PO SCH (22:00)
[2022-03-15] MEDS ORDERED: AMITRIPTYLINE HCL 10 MG TABLET PO SCH (22:00)
[2022-03-15] MEDS ORDERED: QUEtiapine FUMARATE 300 MG TABLET PO SCH (22:00)
[2022-03-16] MEDS: INSULIN SLIDING SCALE (NOVOLOG) 1 VIAL SQ SCH ×3 (06:09→17:01)
[2022-03-16] MEDS ORDERED: LEVOTHYROXINE NA 25 MCG TABLET (FP) PO SCH (07:00)
[2022-03-16 08:21] LABS: HEMATOCRIT 26.9 % (32.4-45.2); HEMOGLOBIN 8.8 GM/dL (10.7-15.3); MCH 29.6 pg (25.7-33.7); MCHC 32.7 g/dl (32.0-36.0); MEAN CELL VOLUME 90.5 fl (80-96); MEAN PLT VOLUME 7.6 fl (7.5-11.1); PLATELET COUNT 311 10^3/uL (134-434); RBC 2.98 M/mm3 (3.60-5.2); RDW 16.6 % (11.6-15.6); WHITE BLOOD COUNT 17.2 K/mm3 (4.0-10.0)
[2022-03-16] MEDS: AMINO ACIDS/PROTEIN HYDROLYS 30 ML LIQUID.PKT PO SCH ×3 (08:45→17:02)
[2022-03-16] MEDS: CALCIUM ACETATE 667 MG CAPSULE (FP) PO SCH ×3 (08:45→17:02)
[2022-03-16 08:46] LABS: CHLORIDE 107 mmol/L (98-107); SODIUM 138 mmol/L (136-145)
[2022-03-16 08:49] LABS: CALCIUM 8.5 mg/dL (8.5-10.1)
[2022-03-16 08:50] LABS: ALBUMIN 1.6 g/dl (3.4-5.0); BLOOD UREA NITROGEN 91.3 mg/dL (7-18); CO2 20 mmol/L (21-32); GLUCOSE,RANDOM 108 mg/dL (74-106)
[2022-03-16 08:53] LABS: CREATININE 4.7 mg/dL (0.55-1.3); SGOT/AST 13 U/L (15-37); SGPT/ALT 16 U/L (13-61)
[2022-03-16 08:54] LABS: BILIRUBIN,TOTAL 0.3 mg/dL (0.2-1); TOT PROT 5.4 g/dl (6.4-8.2)
[2022-03-16 08:55] LABS: ALK PHOS 108 U/L (45-117)
[2022-03-16 08:57] LABS: ANION GAP 12 MMOL/L (8-16)
[2022-03-16 09:48] LABS: ANISOCYTOSIS 2+; MACROCYTOSIS 0; ROULEAU 2+
[2022-03-16] MEDS ORDERED: VITAMIN B COMP W-C 1 EA TABLET (NEPHRO-VITE) PO SCH (10:00)
[2022-03-16] MEDS ORDERED: FAMOTIDINE 20 MG TABLET PO SCH (10:00)
[2022-03-16] MEDS ORDERED: CYANOCOBALAMIN 1,000 MCG TABLET (FP) PO SCH (10:00)
[2022-03-16] MEDS ORDERED: COLLAGENASE CLOSTRIDIUM HIST. 30 GRAMS TUBE TP SCH (10:00)
[2022-03-16] MEDS ORDERED: SODIUM ZIRCONIUM CYCLOSILICATE (LOKELMA) 5 GM PACKET PO SCH (10:00)
[2022-03-16] MEDS ORDERED: ESCITALOPRAM OXALATE 10 MG TABLET PO SCH (10:00)
[2022-03-16] MEDS ORDERED: SODIUM HYPOCHLORITE 0.25%- 473 ML BULK BOTTLE TP SCH (10:00)
[2022-03-16] MEDS ORDERED: EPOETIN ALFA-EPBX 10,000 UNIT/ML VIAL SQ ONE (13:30)
[2022-03-16] MEDS ORDERED: SODIUM CHLORIDE 250 ML IV PRN (13:32)
[2022-03-16 16:38] VITALS: BP 126/67; PULSE 86; TEMP 97.6
[2022-03-18] MEDS ORDERED: SODIUM HYPOCHLORITE 0.25%- 473 ML BULK BOTTLE TP SCH (10:00)
== END 2022-03-16 18:51 | DRG 981 ==
LOC: JER 16:33 → JERBED 18:57 → J4S 03-12 04:30
PROVIDERS: ADMIT Internal Medicine; ATTEND Internal Medicine
PROC: 06HM33Z Insertion of Infusion Device into Right Femoral Vein, Percutaneous Approach (ICD-10-PCS; 2022-03-12)
PROC: 5A1D70Z Performance of Urinary Filtration, Intermittent, Less than 6 Hours Per Day (ICD-10-PCS; 2022-03-12)
PROC: 5A1D70Z Performance of Urinary Filtration, Intermittent, Less than 6 Hours Per Day (ICD-10-PCS; 2022-03-14)
PROC: B54BZZA Ultrasonography of Right Lower Extremity Veins, Guidance (ICD-10-PCS; 2022-03-15)
PROC: B51MZZZ Fluoroscopy of Right Upper Extremity Veins (ICD-10-PCS; 2022-03-15)
PROC: 2W15X6Z Compression of Back using Pressure Dressing (ICD-10-PCS; 2022-03-15)
PROC: 05PYX3Z Removal of Infusion Device from Upper Vein, External Approach (ICD-10-PCS; 2022-03-15)
PROC: 05HY33Z Insertion of Infusion Device into Upper Vein, Percutaneous Approach (ICD-10-PCS; 2022-03-15)
PROC: 057Y3ZZ Dilation of Upper Vein, Percutaneous Approach (ICD-10-PCS; principal; 2022-03-15 13:00)
PROC: 0QB10ZZ Excision of Sacrum, Open Approach (ICD-10-PCS; 2022-03-15 13:00)
PROC: 5A1D70Z Performance of Urinary Filtration, Intermittent, Less than 6 Hours Per Day (ICD-10-PCS; 2022-03-16)
DX: T82.49XA Other complication of vascular dialysis catheter, initial encounter (principal); N18.6 End stage renal disease; U07.1 COVID-19; I12.0 Hypertensive chronic kidney disease with stage 5 chronic kidney disease or end stage renal disease; G82.20 Paraplegia, unspecified; R64 Cachexia; E11.52 Type 2 diabetes mellitus with diabetic peripheral angiopathy with gangrene; I96 Gangrene, not elsewhere classified; G37.3 Acute transverse myelitis in demyelinating disease of central nervous system; E78.5 Hyperlipidemia, unspecified; E03.9 Hypothyroidism, unspecified; J44.9 Chronic obstructive pulmonary disease, unspecified; K21.9 Gastro-esophageal reflux disease without esophagitis; F31.9 Bipolar disorder, unspecified; D63.1 Anemia in chronic kidney disease; E87.5 Hyperkalemia; L89.892 Pressure ulcer of other site, stage 2; L89.150 Pressure ulcer of sacral region, unstageable; Y83.8 Other surgical procedures as the cause of abnormal reaction of the patient, or of later complication, without mention of misadventure at the time of the procedure; Z99.2 Dependence on renal dialysis; E83.52 Hypercalcemia; E11.22 Type 2 diabetes mellitus with diabetic chronic kidney disease; Z68.22 Body mass index [BMI] 22.0-22.9, adult; R62.7 Adult failure to thrive
CPT/HCPCS: 36415; 36430; 71045-TC-FY; 80048; 80053; 82272; 82962; 83735; 84100; 84132; 85025; 85027; 85610; 85730; 86803; 86850; 86900; 86901; 86922; 87340; 93005; 93010; 94760; 99285-25; C1750; C9803-CS; J1644; J2997; P9058; Q5106; U0003; U0005

== ENCOUNTER 2022-04-05 13:43 | Inpatient (IN) | payer OTHER ==
[2022-04-05 14:26] VITALS: BMI 18.2
[2022-04-05 16:36] LABS: BASO % 0.3 % (0-2.0); EOS % 0.9 % (0-4.5); HEMATOCRIT 25.3 % (32.4-45.2); HEMOGLOBIN 7.9 GM/dL (10.7-15.3); LYMPH % 8.7 % (8-40); MCH 29.5 pg (25.7-33.7); MCHC 31.2 g/dl (32.0-36.0); MEAN CELL VOLUME 94.4 fl (80-96); MEAN PLT VOLUME 7.6 fl (7.5-11.1); MONO % 6.1 % (3.8-10.2); PLATELET COUNT 392 10^3/uL (134-434); RBC 2.68 M/mm3 (3.60-5.2); RDW 17.3 % (11.6-15.6); WHITE BLOOD COUNT 15.1 K/mm3 (4.0-10.0)
[2022-04-05 17:33] LABS: ALBUMIN 1.8 g/dl (3.4-5.0); BILIRUBIN,TOTAL 0.4 mg/dL (0.2-1); BLOOD UREA NITROGEN 57.1 mg/dL (7-18); CALCIUM 9.8 mg/dL (8.5-10.1); TOT PROT 6.2 g/dl (6.4-8.2)
[2022-04-05] MEDS ORDERED: ACETAMINOPHEN INJECTION 100 ML IVPB ONE (19:54)
[2022-04-05] MEDS ORDERED: ACETAMINOPHEN 1000 MG/100 ML BAG IVPB ONE (20:11)
[2022-04-06] MEDS ORDERED: ACETAMINOPHEN 325 MG TABLET (FP) PO PRN (02:45)
[2022-04-06] MEDS: LEVOTHYROXINE NA 25 MCG TABLET (FP) PO SCH (07:12)
[2022-04-06 08:36] LABS: BASO % 0.5 % (0-2.0); EOS % 0.6 % (0-4.5); HEMATOCRIT 20.4 % (32.4-45.2); LYMPH % 9.3 % (8-40); MCH 29.8 pg (25.7-33.7); MCHC 31.4 g/dl (32.0-36.0); MEAN CELL VOLUME 94.8 fl (80-96); MEAN PLT VOLUME 7.5 fl (7.5-11.1); MONO % 7.2 % (3.8-10.2); NEUT % 82.4 % (42.8-82.8); PLATELET COUNT 321 10^3/uL (134-434); RBC 2.15 M/mm3 (3.60-5.2); RDW 17.1 % (11.6-15.6); WHITE BLOOD COUNT 13.4 K/mm3 (4.0-10.0)
[2022-04-06 08:38] LABS: HEMOGLOBIN 6.4 GM/dL (10.7-15.3)
[2022-04-06 08:50] LABS: CHLORIDE 104 mmol/L (98-107); SODIUM 139 mmol/L (136-145)
[2022-04-06 08:59] LABS: CALCIUM 9.1 mg/dL (8.5-10.1)
[2022-04-06 09:00] LABS: ALBUMIN 1.4 g/dl (3.4-5.0); ANION GAP 13 MMOL/L (8-16); BLOOD UREA NITROGEN 71.3 mg/dL (7-18); CO2 22 mmol/L (21-32); GLUCOSE,RANDOM 154 mg/dL (74-106)
[2022-04-06 09:02] LABS: SGPT/ALT 15 U/L (13-61)
[2022-04-06 09:03] LABS: CREATININE 4.2 mg/dL (0.55-1.3); SGOT/AST 16 U/L (15-37)
[2022-04-06 09:04] LABS: BILIRUBIN,TOTAL 0.3 mg/dL (0.2-1); TOT PROT 5.2 g/dl (6.4-8.2)
[2022-04-06 09:05] LABS: ALK PHOS 105 U/L (45-117)
[2022-04-06] MEDS ORDERED: CALCIUM ALGINATE TP SCH (10:00)
[2022-04-06] MEDS ORDERED: PATIENT'S OWN MEDICATION (NON-FORMULARY) (Bismuth Tribromoph/Petrolatum [Xeroform Petrolat TP SCH (10:00)
[2022-04-06] MEDS: ESCITALOPRAM OXALATE 10 MG TABLET PO SCH (10:07)
[2022-04-06] MEDS: SODIUM HYPOCHLORITE 0.25%- 473 ML BULK BOTTLE TP SCH (10:35)
[2022-04-06] MEDS: COLLAGENASE CLOSTRIDIUM HIST. 30 GRAMS TUBE TP SCH (10:35)
[2022-04-06] MEDS ORDERED: VANCOMYCIN/WATER FOR INJ (PEG) 1,000 MG/200 ML BAG IVPB ONE (17:10)
[2022-04-06] MEDS: AMITRIPTYLINE HCL 10 MG TABLET PO SCH (22:10)
[2022-04-06] MEDS ORDERED: SODIUM CHLORIDE 250 ML IV STA (22:17)
[2022-04-07] MEDS: LEVOTHYROXINE NA 25 MCG TABLET (FP) PO SCH (06:29)
[2022-04-07 09:17] LABS: BASO % 0.2 % (0-2.0); EOS % 0.4 % (0-4.5); HEMATOCRIT 24.4 % (32.4-45.2); HEMOGLOBIN 7.7 GM/dL (10.7-15.3); LYMPH % 7.5 % (8-40); MCH 29.1 pg (25.7-33.7); MCHC 31.7 g/dl (32.0-36.0); MEAN PLT VOLUME 7.4 fl (7.5-11.1); MONO % 7.6 % (3.8-10.2); NEUT % 84.3 % (42.8-82.8); PLATELET COUNT 315 10^3/uL (134-434); RBC 2.66 M/mm3 (3.60-5.2); RDW 16.5 % (11.6-15.6); WHITE BLOOD COUNT 15.5 K/mm3 (4.0-10.0)
[2022-04-07] MEDS ORDERED: SODIUM CHLORIDE 0.9% 500 ML INFUS.BAG IV ONE (09:37)
[2022-04-07] MEDS: COLLAGENASE CLOSTRIDIUM HIST. 30 GRAMS TUBE TP SCH (10:37)
[2022-04-07] MEDS: ESCITALOPRAM OXALATE 10 MG TABLET PO SCH (10:58)
[2022-04-07] MEDS: SODIUM HYPOCHLORITE 0.25%- 473 ML BULK BOTTLE TP SCH (10:58)
[2022-04-07 11:17] LABS: IRON SERUM 33 ug/dL (50-175); TOTAL IRON BINDING CAPACITY 99 ug/dL (250-450)
[2022-04-07] MEDS: HEPARIN NA (PORCINE) 5,000 UNITS/ML 1ML VIAL SQ SCH ×2 (14:39→21:37)
[2022-04-07] MEDS ORDERED: SODIUM CHLORIDE 250 ML IV PRN ×2 (14:52)
[2022-04-07] MEDS ORDERED: EPOETIN ALFA-EPBX 10,000 UNIT/ML VIAL SQ ONE (15:15)
[2022-04-07] MEDS: AMITRIPTYLINE HCL 10 MG TABLET PO SCH (21:37)
[2022-04-08] MEDS: HEPARIN NA (PORCINE) 5,000 UNITS/ML 1ML VIAL SQ SCH ×3 (06:15→22:12)
[2022-04-08] MEDS: LEVOTHYROXINE NA 25 MCG TABLET (FP) PO SCH (06:15)
[2022-04-08] MEDS: SODIUM HYPOCHLORITE 0.25%- 473 ML BULK BOTTLE TP SCH ×2 (11:23→18:54)
[2022-04-08] MEDS: VITAMIN B COMP W-C 1 EA TABLET (NEPHRO-VITE) PO SCH (11:24)
[2022-04-08] MEDS: ESCITALOPRAM OXALATE 10 MG TABLET PO SCH (11:24)
[2022-04-08] MEDS: COLLAGENASE CLOSTRIDIUM HIST. 30 GRAMS TUBE TP SCH ×2 (11:25→18:53)
[2022-04-08 11:52] LABS: BASO % 0.4 % (0-2.0); EOS % 0.2 % (0-4.5); HEMATOCRIT 26.1 % (32.4-45.2); HEMOGLOBIN 8.2 GM/dL (10.7-15.3); LYMPH % 8.2 % (8-40); MCH 29.5 pg (25.7-33.7); MCHC 31.5 g/dl (32.0-36.0); MEAN CELL VOLUME 93.9 fl (80-96); MEAN PLT VOLUME 7.6 fl (7.5-11.1); MONO % 6.8 % (3.8-10.2); NEUT % 84.4 % (42.8-82.8); PLATELET COUNT 283 10^3/uL (134-434); RBC 2.79 M/mm3 (3.60-5.2); RDW 16.8 % (11.6-15.6)
[2022-04-08 12:13] LABS: CALCIUM 8.4 mg/dL (8.5-10.1); MAGNESIUM 1.9 mg/dL (1.8-2.4)
[2022-04-08 12:17] LABS: CREATININE 1.8 mg/dL (0.55-1.3)
[2022-04-08 12:18] LABS: BLOOD UREA NITROGEN 18.6 mg/dL (7-18)
[2022-04-08] MEDS: AMITRIPTYLINE HCL 10 MG TABLET PO SCH (22:12)
[2022-04-09] MEDS: HEPARIN NA (PORCINE) 5,000 UNITS/ML 1ML VIAL SQ SCH ×3 (06:06→21:30)
[2022-04-09] MEDS: LEVOTHYROXINE NA 25 MCG TABLET (FP) PO SCH (06:06)
[2022-04-09] MEDS ORDERED: ACETAMINOPHEN 325 MG TABLET (FP) PO ONE (06:13)
[2022-04-09 07:57] LABS: BASO % 0.2 % (0-2.0); EOS % 0.3 % (0-4.5); HEMATOCRIT 25.8 % (32.4-45.2); HEMOGLOBIN 7.9 GM/dL (10.7-15.3); LYMPH % 8.4 % (8-40); MCH 28.8 pg (25.7-33.7); MCHC 30.6 g/dl (32.0-36.0); MEAN CELL VOLUME 94.2 fl (80-96); MEAN PLT VOLUME 7.3 fl (7.5-11.1); MONO % 6.7 % (3.8-10.2); NEUT % 84.4 % (42.8-82.8); PLATELET COUNT 280 10^3/uL (134-434); RBC 2.73 M/mm3 (3.60-5.2); RDW 16.7 % (11.6-15.6); WHITE BLOOD COUNT 14.5 K/mm3 (4.0-10.0)
[2022-04-09 08:15] LABS: CALCIUM 8.5 mg/dL (8.5-10.1)
[2022-04-09 08:16] LABS: BLOOD UREA NITROGEN 29.3 mg/dL (7-18)
[2022-04-09 08:19] LABS: CREATININE 2.5 mg/dL (0.55-1.3)
[2022-04-09] MEDS ORDERED: SODIUM CHLORIDE 250 ML IV PRN (08:33)
[2022-04-09] MEDS: ESCITALOPRAM OXALATE 10 MG TABLET PO SCH (09:31)
[2022-04-09] MEDS: MIDODRINE HCL 5 MG TABLET PO SCH ×3 (09:31→18:06)
[2022-04-09] MEDS: EPOETIN ALFA-EPBX 20,000 UNIT/ML VIAL SQ ONE ×2 (11:30→13:39)
[2022-04-09] MEDS: IRON SUCROSE INJECTION 100 MG in SODIUM CHLORIDE 95 ML IVPB ONE ×2 (11:45→13:39)
[2022-04-09] MEDS: VITAMIN B COMP W-C 1 EA TABLET (NEPHRO-VITE) PO SCH (12:33)
[2022-04-09] MEDS: SODIUM HYPOCHLORITE 0.25%- 473 ML BULK BOTTLE TP SCH (13:00)
[2022-04-09] MEDS: COLLAGENASE CLOSTRIDIUM HIST. 30 GRAMS TUBE TP SCH (13:00)
[2022-04-09] MEDS: AMITRIPTYLINE HCL 10 MG TABLET PO SCH (21:30)
[2022-04-10] MEDS: HEPARIN NA (PORCINE) 5,000 UNITS/ML 1ML VIAL SQ SCH ×3 (06:47→22:15)
[2022-04-10] MEDS: LEVOTHYROXINE NA 25 MCG TABLET (FP) PO SCH (06:47)
[2022-04-10] MEDS: COLLAGENASE CLOSTRIDIUM HIST. 30 GRAMS TUBE TP SCH (08:59)
[2022-04-10] MEDS: SODIUM HYPOCHLORITE 0.25%- 473 ML BULK BOTTLE TP SCH (08:59)
[2022-04-10] MEDS: MIDODRINE HCL 5 MG TABLET PO SCH ×3 (09:49→17:55)
[2022-04-10] MEDS: ESCITALOPRAM OXALATE 10 MG TABLET PO SCH (09:49)
[2022-04-10] MEDS: VITAMIN B COMP W-C 1 EA TABLET (NEPHRO-VITE) PO SCH (09:49)
[2022-04-10] MEDS: AMITRIPTYLINE HCL 10 MG TABLET PO SCH (22:15)
[2022-04-11] MEDS: ACETAMINOPHEN 325 MG TABLET (FP) PO PRN ×2 (00:35→09:22)
[2022-04-11] MEDS: LEVOTHYROXINE NA 25 MCG TABLET (FP) PO SCH (06:53)
[2022-04-11] MEDS: HEPARIN NA (PORCINE) 5,000 UNITS/ML 1ML VIAL SQ SCH ×3 (06:53→21:23)
[2022-04-11 08:51] LABS: BASO % 0.4 % (0-2.0); EOS % 0.4 % (0-4.5); HEMOGLOBIN 7.8 GM/dL (10.7-15.3); LYMPH % 7.1 % (8-40); MCH 29.3 pg (25.7-33.7); MCHC 31.3 g/dl (32.0-36.0); MEAN CELL VOLUME 93.5 fl (80-96); MEAN PLT VOLUME 7.2 fl (7.5-11.1); MONO % 5.4 % (3.8-10.2); NEUT % 86.7 % (42.8-82.8); PLATELET COUNT 279 10^3/uL (134-434); RBC 2.67 M/mm3 (3.60-5.2); RDW 16.9 % (11.6-15.6); WHITE BLOOD COUNT 16.1 K/mm3 (4.0-10.0)
[2022-04-11] MEDS: MIDODRINE HCL 5 MG TABLET PO SCH ×3 (09:23→17:04)
[2022-04-11] MEDS: VITAMIN B COMP W-C 1 EA TABLET (NEPHRO-VITE) PO SCH (09:23)
[2022-04-11] MEDS: ESCITALOPRAM OXALATE 10 MG TABLET PO SCH (09:23)
[2022-04-11] MEDS: COLLAGENASE CLOSTRIDIUM HIST. 30 GRAMS TUBE TP SCH (11:20)
[2022-04-11] MEDS: SODIUM HYPOCHLORITE 0.25%- 473 ML BULK BOTTLE TP SCH (11:20)
[2022-04-11] MEDS ORDERED: CEFEPIME 1 GM in DEXTROSE 5%-WATER 100 ML IVPB ONE (11:50)
[2022-04-11] MEDS: AMINO ACIDS/PROTEIN HYDROLYS 30 ML LIQUID.PKT PO SCH (17:14)
[2022-04-11] MEDS: AMITRIPTYLINE HCL 10 MG TABLET PO SCH (21:23)
[2022-04-12] MEDS: ACETAMINOPHEN 325 MG TABLET (FP) PO PRN (01:33)
[2022-04-12] MEDS: HEPARIN NA (PORCINE) 5,000 UNITS/ML 1ML VIAL SQ SCH ×3 (04:59→21:15)
[2022-04-12] MEDS: LEVOTHYROXINE NA 25 MCG TABLET (FP) PO SCH (06:20)
[2022-04-12] MEDS: AMINO ACIDS/PROTEIN HYDROLYS 30 ML LIQUID.PKT PO SCH ×2 (08:00→17:33)
[2022-04-12] MEDS ORDERED: IRON SUCROSE INJECTION 100 MG in SODIUM CHLORIDE 100 ML IVPB ONE (10:00)
[2022-04-12] MEDS ORDERED: EPOETIN ALFA-EPBX 20,000 UNIT/ML VIAL IVPUSH ONE (10:00)
[2022-04-12] MEDS: ESCITALOPRAM OXALATE 10 MG TABLET PO SCH (11:51)
[2022-04-12] MEDS: VITAMIN B COMP W-C 1 EA TABLET (NEPHRO-VITE) PO SCH (11:51)
[2022-04-12] MEDS: ZINC SULFATE 220 MG CAPSULE (FP) PO SCH (11:51)
[2022-04-12] MEDS: MIDODRINE HCL 5 MG TABLET PO SCH ×3 (11:51→17:33)
[2022-04-12] MEDS: CEFEPIME 1 GM in DEXTROSE 5%-WATER 100 ML IVPB SCH (11:51)
[2022-04-12 13:03] LABS: HEMATOCRIT 23.1 % (32.4-45.2); HEMOGLOBIN 7.3 GM/dL (10.7-15.3); MCH 30.2 pg (25.7-33.7); MCHC 31.7 g/dl (32.0-36.0); MEAN CELL VOLUME 95.3 fl (80-96); MEAN PLT VOLUME 7.4 fl (7.5-11.1); PLATELET COUNT 261 10^3/uL (134-434); RBC 2.42 M/mm3 (3.60-5.2); RDW 17.2 % (11.6-15.6); WHITE BLOOD COUNT 13.7 K/mm3 (4.0-10.0)
[2022-04-12] MEDS: SODIUM HYPOCHLORITE 0.25%- 473 ML BULK BOTTLE TP SCH (13:09)
[2022-04-12] MEDS: COLLAGENASE CLOSTRIDIUM HIST. 30 GRAMS TUBE TP SCH (13:10)
[2022-04-12 13:18] LABS: CALCIUM 8.8 mg/dL (8.5-10.1)
[2022-04-12 13:19] LABS: BLOOD UREA NITROGEN 51.7 mg/dL (7-18)
[2022-04-12 13:22] LABS: CREATININE 3.6 mg/dL (0.55-1.3)
[2022-04-12] MEDS: AMITRIPTYLINE HCL 10 MG TABLET PO SCH (21:15)
[2022-04-13] MEDS: HEPARIN NA (PORCINE) 5,000 UNITS/ML 1ML VIAL SQ SCH ×3 (06:17→21:46)
[2022-04-13] MEDS: LEVOTHYROXINE NA 25 MCG TABLET (FP) PO SCH (06:18)
[2022-04-13] MEDS: AMINO ACIDS/PROTEIN HYDROLYS 30 ML LIQUID.PKT PO SCH ×2 (10:24→16:51)
[2022-04-13] MEDS: SODIUM HYPOCHLORITE 0.25%- 473 ML BULK BOTTLE TP SCH (10:24)
[2022-04-13] MEDS: ZINC SULFATE 220 MG CAPSULE (FP) PO SCH (10:25)
[2022-04-13] MEDS: MIDODRINE HCL 5 MG TABLET PO SCH ×3 (10:25→18:15)
[2022-04-13] MEDS: ESCITALOPRAM OXALATE 10 MG TABLET PO SCH (10:25)
[2022-04-13] MEDS: CEFEPIME 1 GM in DEXTROSE 5%-WATER 100 ML IVPB SCH (10:25)
[2022-04-13] MEDS: VITAMIN B COMP W-C 1 EA TABLET (NEPHRO-VITE) PO SCH (10:25)
[2022-04-13] MEDS: COLLAGENASE CLOSTRIDIUM HIST. 30 GRAMS TUBE TP SCH (10:25)
[2022-04-13 12:25] LABS: BASO % 0.4 % (0-2.0); EOS % 0.2 % (0-4.5); HEMATOCRIT 24.5 % (32.4-45.2); HEMOGLOBIN 7.8 GM/dL (10.7-15.3); LYMPH % 9.6 % (8-40); MCH 30.2 pg (25.7-33.7); MCHC 31.7 g/dl (32.0-36.0); MEAN CELL VOLUME 95.2 fl (80-96); MEAN PLT VOLUME 7.2 fl (7.5-11.1); MONO % 6.4 % (3.8-10.2); NEUT % 83.4 % (42.8-82.8); PLATELET COUNT 255 10^3/uL (134-434); RBC 2.58 M/mm3 (3.60-5.2); WHITE BLOOD COUNT 14.8 K/mm3 (4.0-10.0)
[2022-04-13 12:46] LABS: CALCIUM 8.5 mg/dL (8.5-10.1)
[2022-04-13 12:47] LABS: BLOOD UREA NITROGEN 35.4 mg/dL (7-18)
[2022-04-13 12:50] LABS: CREATININE 2.1 mg/dL (0.55-1.3)
[2022-04-13] MEDS ORDERED: SODIUM CHLORIDE 250 ML IV PRN (15:30)
[2022-04-13] MEDS ORDERED: EPOETIN ALFA-EPBX 20,000 UNIT/ML VIAL IVPUSH ONE (16:57)
[2022-04-13] MEDS: AMITRIPTYLINE HCL 10 MG TABLET PO SCH (21:46)
[2022-04-14] MEDS: LEVOTHYROXINE NA 25 MCG TABLET (FP) PO SCH (06:11)
[2022-04-14] MEDS: HEPARIN NA (PORCINE) 5,000 UNITS/ML 1ML VIAL SQ SCH (06:11)
[2022-04-14] MEDS: VITAMIN B COMP W-C 1 EA TABLET (NEPHRO-VITE) PO SCH (10:23)
[2022-04-14] MEDS: MIDODRINE HCL 5 MG TABLET PO SCH ×3 (10:23→18:27)
[2022-04-14] MEDS: AMINO ACIDS/PROTEIN HYDROLYS 30 ML LIQUID.PKT PO SCH ×2 (10:23→16:54)
[2022-04-14] MEDS: ZINC SULFATE 220 MG CAPSULE (FP) PO SCH (10:23)
[2022-04-14] MEDS: ESCITALOPRAM OXALATE 10 MG TABLET PO SCH (10:23)
[2022-04-14] MEDS: CEFEPIME 1 GM in DEXTROSE 5%-WATER 100 ML IVPB SCH (10:24)
[2022-04-14] MEDS: COLLAGENASE CLOSTRIDIUM HIST. 30 GRAMS TUBE TP SCH (10:24)
[2022-04-14] MEDS: SODIUM HYPOCHLORITE 0.25%- 473 ML BULK BOTTLE TP SCH (10:24)
[2022-04-14] MEDS ORDERED: ACETAMINOPHEN 500 MG TABLET (FP) PO ONE (12:45)
[2022-04-14] MEDS ORDERED: SODIUM CHLORIDE 250 ML IV PRN (15:35)
[2022-04-14] MEDS ORDERED: EPOETIN ALFA-EPBX 20,000 UNIT/ML VIAL IVPUSH ONE (15:45)
[2022-04-14] MEDS: AMITRIPTYLINE HCL 10 MG TABLET PO SCH (21:04)
[2022-04-15] MEDS: ACETAMINOPHEN 325 MG TABLET (FP) PO PRN ×2 (01:52→10:35)
[2022-04-15] MEDS: LEVOTHYROXINE NA 25 MCG TABLET (FP) PO SCH (06:08)
[2022-04-15] MEDS: AMINO ACIDS/PROTEIN HYDROLYS 30 ML LIQUID.PKT PO SCH ×2 (10:26→17:38)
[2022-04-15] MEDS: ZINC SULFATE 220 MG CAPSULE (FP) PO SCH (10:27)
[2022-04-15] MEDS: CEFEPIME 1 GM in DEXTROSE 5%-WATER 100 ML IVPB SCH (10:27)
[2022-04-15] MEDS: VITAMIN B COMP W-C 1 EA TABLET (NEPHRO-VITE) PO SCH (10:27)
[2022-04-15] MEDS: ESCITALOPRAM OXALATE 10 MG TABLET PO SCH (10:27)
[2022-04-15] MEDS: MIDODRINE HCL 5 MG TABLET PO SCH ×3 (10:27→18:33)
[2022-04-15] MEDS: SODIUM HYPOCHLORITE 0.25%- 473 ML BULK BOTTLE TP SCH (11:08)
[2022-04-15] MEDS: COLLAGENASE CLOSTRIDIUM HIST. 30 GRAMS TUBE TP SCH (11:08)
[2022-04-15] MEDS ORDERED: ACETAMINOPHEN 325 MG TABLET (FP) PO ONE (21:20)
[2022-04-15] MEDS: AMITRIPTYLINE HCL 10 MG TABLET PO SCH (21:30)
[2022-04-15] MEDS: MIRTAZAPINE 15 MG TABLET (FP) PO SCH (21:30)
[2022-04-16] MEDS: LEVOTHYROXINE NA 25 MCG TABLET (FP) PO SCH (06:16)
[2022-04-16] MEDS: AMINO ACIDS/PROTEIN HYDROLYS 30 ML LIQUID.PKT PO SCH ×2 (07:32→17:27)
[2022-04-16] MEDS ORDERED: SODIUM CHLORIDE 250 ML IV PRN (08:56)
[2022-04-16] MEDS: MIDODRINE HCL 5 MG TABLET PO SCH ×3 (09:09→17:55)
[2022-04-16 09:18] LABS: BASO % 0.2 % (0-2.0); EOS % 0.4 % (0-4.5); HEMATOCRIT 23.7 % (32.4-45.2); HEMOGLOBIN 7.2 GM/dL (10.7-15.3); MCH 29.3 pg (25.7-33.7); MCHC 30.4 g/dl (32.0-36.0); MEAN CELL VOLUME 96.3 fl (80-96); MEAN PLT VOLUME 7.9 fl (7.5-11.1); MONO % 6.1 % (3.8-10.2); NEUT % 83.3 % (42.8-82.8); PLATELET COUNT 229 10^3/uL (134-434); RBC 2.46 M/mm3 (3.60-5.2); RDW 17.8 % (11.6-15.6); WHITE BLOOD COUNT 16.2 K/mm3 (4.0-10.0)
[2022-04-16 09:51] LABS: CHLORIDE 104 mmol/L (98-107); SODIUM 141 mmol/L (136-145)
[2022-04-16 09:52] LABS: ALBUMIN 1.6 g/dl (3.4-5.0); CALCIUM 7.8 mg/dL (8.5-10.1); CO2 26 mmol/L (21-32); GLUCOSE,RANDOM 106 mg/dL (74-106)
[2022-04-16 09:53] LABS: MAGNESIUM 1.9 mg/dL (1.8-2.4)
[2022-04-16 09:55] LABS: CREATININE 2.5 mg/dL (0.55-1.3); SGPT/ALT 9 U/L (13-61)
[2022-04-16 09:57] LABS: BILIRUBIN,TOTAL 0.3 mg/dL (0.2-1); SGOT/AST 8 U/L (15-37); TOT PROT 4.8 g/dl (6.4-8.2)
[2022-04-16 09:58] LABS: ALK PHOS 88 U/L (45-117)
[2022-04-16] MEDS ORDERED: EPOETIN ALFA-EPBX 20,000 UNIT/ML VIAL SQ ONE (10:00)
[2022-04-16 10:05] LABS: ANION GAP 11 MMOL/L (8-16)
[2022-04-16] MEDS: CEFTRIAXONE 1 GM in DEXTROSE 5%-WATER - 50 ML IVPB SCH (12:19)
[2022-04-16] MEDS: ESCITALOPRAM OXALATE 10 MG TABLET PO SCH (12:19)
[2022-04-16] MEDS: VITAMIN B COMP W-C 1 EA TABLET (NEPHRO-VITE) PO SCH (12:19)
[2022-04-16] MEDS: ZINC SULFATE 220 MG CAPSULE (FP) PO SCH (12:19)
[2022-04-16] MEDS: COLLAGENASE CLOSTRIDIUM HIST. 30 GRAMS TUBE TP SCH (12:20)
[2022-04-16] MEDS: SODIUM HYPOCHLORITE 0.25%- 473 ML BULK BOTTLE TP SCH (12:20)
[2022-04-16 17:23] LABS: CALCIUM 8.7 mg/dL (8.5-10.1)
[2022-04-16 17:27] LABS: CREATININE 1.1 mg/dL (0.55-1.3)
[2022-04-16 17:30] LABS: BLOOD UREA NITROGEN 14.4 mg/dL (7-18)
[2022-04-16] MEDS: AMITRIPTYLINE HCL 10 MG TABLET PO SCH (21:03)
[2022-04-16] MEDS: MIRTAZAPINE 15 MG TABLET (FP) PO SCH (21:03)
[2022-04-16] MEDS ORDERED: POTASSIUM CHLORIDE TABS 20 MEQ TABLET.ER (FP) PO ONE (22:04)
[2022-04-17] MEDS: LEVOTHYROXINE NA 25 MCG TABLET (FP) PO SCH (06:05)
[2022-04-17] MEDS: AMINO ACIDS/PROTEIN HYDROLYS 30 ML LIQUID.PKT PO SCH ×2 (07:55→16:58)
[2022-04-17 08:11] LABS: BASO % 0.2 % (0-2.0); EOS % 0.2 % (0-4.5); HEMATOCRIT 24.5 % (32.4-45.2); HEMOGLOBIN 7.5 GM/dL (10.7-15.3); LYMPH % 11.6 % (8-40); MCH 29.6 pg (25.7-33.7); MCHC 30.7 g/dl (32.0-36.0); MEAN CELL VOLUME 96.5 fl (80-96); MEAN PLT VOLUME 7.9 fl (7.5-11.1); MONO % 6.9 % (3.8-10.2); NEUT % 81.1 % (42.8-82.8); PLATELET COUNT 243 10^3/uL (134-434); RBC 2.54 M/mm3 (3.60-5.2); WHITE BLOOD COUNT 13.5 K/mm3 (4.0-10.0)
[2022-04-17 08:26] LABS: CALCIUM 8.1 mg/dL (8.5-10.1)
[2022-04-17 08:27] LABS: ALBUMIN 1.6 g/dl (3.4-5.0); BLOOD UREA NITROGEN 21.1 mg/dL (7-18)
[2022-04-17 08:30] LABS: CREATININE 1.6 mg/dL (0.55-1.3)
[2022-04-17 08:31] LABS: TOT PROT 4.8 g/dl (6.4-8.2)
[2022-04-17 08:32] LABS: BILIRUBIN,TOTAL 0.3 mg/dL (0.2-1)
[2022-04-17] MEDS: SODIUM HYPOCHLORITE 0.25%- 473 ML BULK BOTTLE TP SCH (10:52)
[2022-04-17] MEDS: CEFTRIAXONE 1 GM in DEXTROSE 5%-WATER - 50 ML IVPB SCH (10:52)
[2022-04-17] MEDS: MIDODRINE HCL 5 MG TABLET PO SCH ×3 (10:52→17:28)
[2022-04-17] MEDS: ZINC SULFATE 220 MG CAPSULE (FP) PO SCH (10:52)
[2022-04-17] MEDS: ESCITALOPRAM OXALATE 10 MG TABLET PO SCH (10:52)
[2022-04-17] MEDS: VITAMIN B COMP W-C 1 EA TABLET (NEPHRO-VITE) PO SCH (10:52)
[2022-04-17] MEDS: COLLAGENASE CLOSTRIDIUM HIST. 30 GRAMS TUBE TP SCH (10:53)
[2022-04-17] MEDS: MIRTAZAPINE 15 MG TABLET (FP) PO SCH (21:44)
[2022-04-17] MEDS: ACETAMINOPHEN 325 MG TABLET (FP) PO PRN (21:44)
[2022-04-17] MEDS: AMITRIPTYLINE HCL 10 MG TABLET PO SCH (21:44)
[2022-04-18] MEDS: LEVOTHYROXINE NA 25 MCG TABLET (FP) PO SCH (06:26)
[2022-04-18] MEDS: AMINO ACIDS/PROTEIN HYDROLYS 30 ML LIQUID.PKT PO SCH ×3 (10:08→17:33)
[2022-04-18] MEDS: ZINC SULFATE 220 MG CAPSULE (FP) PO SCH (10:09)
[2022-04-18] MEDS: VITAMIN B COMP W-C 1 EA TABLET (NEPHRO-VITE) PO SCH (10:09)
[2022-04-18] MEDS: CEFTRIAXONE 1 GM in DEXTROSE 5%-WATER - 50 ML IVPB SCH (10:09)
[2022-04-18] MEDS: ESCITALOPRAM OXALATE 10 MG TABLET PO SCH (10:09)
[2022-04-18] MEDS: MIDODRINE HCL 5 MG TABLET PO SCH ×3 (10:09→17:28)
[2022-04-18] MEDS ORDERED: SODIUM CHLORIDE 250 ML IV PRN (11:53)
[2022-04-18 12:39] LABS: BASO % 0.2 % (0-2.0); EOS % 0.4 % (0-4.5); HEMATOCRIT 26.3 % (32.4-45.2); HEMOGLOBIN 7.9 GM/dL (10.7-15.3); MCH 29.6 pg (25.7-33.7); MEAN CELL VOLUME 98.6 fl (80-96); MONO % 6.9 % (3.8-10.2); NEUT % 80.5 % (42.8-82.8); PLATELET COUNT 230 10^3/uL (134-434); RBC 2.67 M/mm3 (3.60-5.2); RDW 18.7 % (11.6-15.6); WHITE BLOOD COUNT 13.2 K/mm3 (4.0-10.0)
[2022-04-18] MEDS: SODIUM HYPOCHLORITE 0.25%- 473 ML BULK BOTTLE TP SCH (12:54)
[2022-04-18 13:09] LABS: CHLORIDE 106 mmol/L (98-107); SODIUM 143 mmol/L (136-145)
[2022-04-18 13:17] LABS: BILIRUBIN,TOTAL 0.3 mg/dL (0.2-1); CREATININE 2.6 mg/dL (0.55-1.3); TOT PROT 4.9 g/dl (6.4-8.2)
[2022-04-18 13:18] LABS: ALK PHOS 86 U/L (45-117)
[2022-04-18 13:19] LABS: SGOT/AST 7 U/L (15-37)
[2022-04-18 13:20] LABS: ALBUMIN 1.6 g/dl (3.4-5.0); ANION GAP 11 MMOL/L (8-16); CALCIUM 8.3 mg/dL (8.5-10.1); CO2 26 mmol/L (21-32); GLUCOSE,RANDOM 156 mg/dL (74-106)
[2022-04-18 13:23] LABS: SGPT/ALT < 6 U/L (13-61)
[2022-04-18] MEDS: COLLAGENASE CLOSTRIDIUM HIST. 30 GRAMS TUBE TP SCH (13:49)
[2022-04-18] MEDS: ACETAMINOPHEN 325 MG TABLET (FP) PO PRN (17:29)
[2022-04-18] MEDS: AMITRIPTYLINE HCL 10 MG TABLET PO SCH (21:05)
[2022-04-18] MEDS: MIRTAZAPINE 15 MG TABLET (FP) PO SCH (21:25)
[2022-04-19] MEDS: LEVOTHYROXINE NA 25 MCG TABLET (FP) PO SCH (06:13)
[2022-04-19] MEDS: AMINO ACIDS/PROTEIN HYDROLYS 30 ML LIQUID.PKT PO SCH ×2 (07:15→16:43)
[2022-04-19] MEDS: CEFTRIAXONE 1 GM in DEXTROSE 5%-WATER - 50 ML IVPB SCH (10:46)
[2022-04-19] MEDS: SODIUM HYPOCHLORITE 0.25%- 473 ML BULK BOTTLE TP SCH (10:46)
[2022-04-19] MEDS: MIDODRINE HCL 5 MG TABLET PO SCH ×3 (10:46→17:14)
[2022-04-19] MEDS: VITAMIN B COMP W-C 1 EA TABLET (NEPHRO-VITE) PO SCH (10:46)
[2022-04-19] MEDS: ESCITALOPRAM OXALATE 10 MG TABLET PO SCH (10:46)
[2022-04-19] MEDS: ZINC SULFATE 220 MG CAPSULE (FP) PO SCH (10:46)
[2022-04-19] MEDS: COLLAGENASE CLOSTRIDIUM HIST. 30 GRAMS TUBE TP SCH (10:46)
[2022-04-19] MEDS ORDERED: EPOETIN ALFA-EPBX 20,000 UNIT/ML VIAL IVPUSH ONE (13:00)
[2022-04-19 14:44] LABS: BASO % 0.2 % (0-2.0); EOS % 0.7 % (0-4.5); HEMATOCRIT 23.2 % (32.4-45.2); HEMOGLOBIN 7.3 GM/dL (10.7-15.3); LYMPH % 13.2 % (8-40); MCH 30.9 pg (25.7-33.7); MCHC 31.4 g/dl (32.0-36.0); MEAN CELL VOLUME 98.3 fl (80-96); MEAN PLT VOLUME 7.7 fl (7.5-11.1); MONO % 7.6 % (3.8-10.2); NEUT % 78.3 % (42.8-82.8); PLATELET COUNT 197 10^3/uL (134-434); RBC 2.36 M/mm3 (3.60-5.2); RDW 20.3 % (11.6-15.6); WHITE BLOOD COUNT 10.5 K/mm3 (4.0-10.0)
[2022-04-19 15:04] LABS: CHLORIDE 109 mmol/L (98-107); SODIUM 142 mmol/L (136-145)
[2022-04-19 15:06] LABS: CALCIUM 7.6 mg/dL (8.5-10.1)
[2022-04-19 15:07] LABS: ALBUMIN 1.4 g/dl (3.4-5.0); ANION GAP 10 MMOL/L (8-16); BLOOD UREA NITROGEN 56.9 mg/dL (7-18); CO2 23 mmol/L (21-32); GLUCOSE,RANDOM 206 mg/dL (74-106); MAGNESIUM 1.8 mg/dL (1.8-2.4)
[2022-04-19 15:10] LABS: CREATININE 2.9 mg/dL (0.55-1.3); PHOSPHOROUS 3.4 mg/dL (2.5-4.9); SGOT/AST 5 U/L (15-37); SGPT/ALT < 6 U/L (13-61)
[2022-04-19 15:11] LABS: BILIRUBIN,TOTAL 0.3 mg/dL (0.2-1); TOT PROT 4.4 g/dl (6.4-8.2)
[2022-04-19 15:12] LABS: ALK PHOS 84 U/L (45-117)
[2022-04-19] MEDS: ACETAMINOPHEN 325 MG TABLET (FP) PO PRN (19:34)
[2022-04-19] MEDS: AMITRIPTYLINE HCL 10 MG TABLET PO SCH (22:31)
[2022-04-19] MEDS: MIRTAZAPINE 15 MG TABLET (FP) PO SCH (22:31)
[2022-04-20] MEDS: ACETAMINOPHEN 325 MG TABLET (FP) PO PRN ×2 (01:37→21:05)
[2022-04-20] MEDS: LEVOTHYROXINE NA 25 MCG TABLET (FP) PO SCH (06:29)
[2022-04-20] MEDS: AMINO ACIDS/PROTEIN HYDROLYS 30 ML LIQUID.PKT PO SCH ×2 (08:23→17:18)
[2022-04-20] MEDS: CEFTRIAXONE 1 GM in DEXTROSE 5%-WATER - 50 ML IVPB SCH (09:16)
[2022-04-20] MEDS: ZINC SULFATE 220 MG CAPSULE (FP) PO SCH (09:16)
[2022-04-20] MEDS: VITAMIN B COMP W-C 1 EA TABLET (NEPHRO-VITE) PO SCH (09:16)
[2022-04-20] MEDS: MIDODRINE HCL 5 MG TABLET PO SCH ×3 (09:16→17:18)
[2022-04-20] MEDS: SODIUM HYPOCHLORITE 0.25%- 473 ML BULK BOTTLE TP SCH (09:17)
[2022-04-20] MEDS: ESCITALOPRAM OXALATE 10 MG TABLET PO SCH (09:17)
[2022-04-20] MEDS: COLLAGENASE CLOSTRIDIUM HIST. 30 GRAMS TUBE TP SCH (09:17)
[2022-04-20 11:47] LABS: BASO % 0.3 % (0-2.0); EOS % 0.5 % (0-4.5); HEMATOCRIT 22.5 % (32.4-45.2); HEMOGLOBIN 7.1 GM/dL (10.7-15.3); LYMPH % 11.5 % (8-40); MCH 30.5 pg (25.7-33.7); MCHC 31.6 g/dl (32.0-36.0); MEAN CELL VOLUME 96.4 fl (80-96); MEAN PLT VOLUME 7.5 fl (7.5-11.1); MONO % 8.3 % (3.8-10.2); NEUT % 79.4 % (42.8-82.8); PLATELET COUNT 189 10^3/uL (134-434); RBC 2.34 M/mm3 (3.60-5.2); RDW 20.1 % (11.6-15.6); WHITE BLOOD COUNT 11.1 K/mm3 (4.0-10.0)
[2022-04-20 12:19] LABS: CHLORIDE 107 mmol/L (98-107); SODIUM 142 mmol/L (136-145)
[2022-04-20 12:21] LABS: CALCIUM 7.9 mg/dL (8.5-10.1)
[2022-04-20 12:22] LABS: ALBUMIN 1.4 g/dl (3.4-5.0); ANION GAP 9 MMOL/L (8-16); BLOOD UREA NITROGEN 35.2 mg/dL (7-18); CO2 26 mmol/L (21-32); GLUCOSE,RANDOM 229 mg/dL (74-106)
[2022-04-20 12:25] LABS: PHOSPHOROUS 2.8 mg/dL (2.5-4.9); SGOT/AST 5 U/L (15-37)
[2022-04-20 12:26] LABS: BILIRUBIN,TOTAL 0.3 mg/dL (0.2-1); TOT PROT 4.5 g/dl (6.4-8.2)
[2022-04-20 12:27] LABS: ALK PHOS 72 U/L (45-117)
[2022-04-20 12:30] LABS: SGPT/ALT < 6 U/L (13-61)
[2022-04-20] MEDS ORDERED: POTASSIUM CHLORIDE ORAL LIQUID 20 MEQ/15 ML PO ONE (13:00)
[2022-04-20] MEDS: MIRTAZAPINE 15 MG TABLET (FP) PO SCH (21:05)
[2022-04-20] MEDS: AMITRIPTYLINE HCL 10 MG TABLET PO SCH (21:05)
[2022-04-21] MEDS: ACETAMINOPHEN 325 MG TABLET (FP) PO PRN ×2 (05:50→21:36)
[2022-04-21] MEDS: LEVOTHYROXINE NA 25 MCG TABLET (FP) PO SCH (06:22)
[2022-04-21] MEDS: AMINO ACIDS/PROTEIN HYDROLYS 30 ML LIQUID.PKT PO SCH ×2 (10:20→18:45)
[2022-04-21] MEDS: CEFTRIAXONE 1 GM in DEXTROSE 5%-WATER - 50 ML IVPB SCH (10:24)
[2022-04-21] MEDS: VITAMIN B COMP W-C 1 EA TABLET (NEPHRO-VITE) PO SCH (10:25)
[2022-04-21] MEDS: SODIUM HYPOCHLORITE 0.25%- 473 ML BULK BOTTLE TP SCH (10:25)
[2022-04-21] MEDS: ZINC SULFATE 220 MG CAPSULE (FP) PO SCH (10:25)
[2022-04-21] MEDS: ESCITALOPRAM OXALATE 10 MG TABLET PO SCH (10:25)
[2022-04-21] MEDS: MIDODRINE HCL 5 MG TABLET PO SCH ×3 (10:25→18:48)
[2022-04-21] MEDS: COLLAGENASE CLOSTRIDIUM HIST. 30 GRAMS TUBE TP SCH (10:26)
[2022-04-21] MEDS ORDERED: INSULIN (NOVOLOG) ASPART 100 UNITS/ML 10ML VIAL ONE ×2 (11:55→18:32)
[2022-04-21 11:59] LABS: BASO % 0.2 % (0-2.0); EOS % 0.4 % (0-4.5); HEMOGLOBIN 7.3 GM/dL (10.7-15.3); MCH 30.5 pg (25.7-33.7); MCHC 31.7 g/dl (32.0-36.0); MEAN PLT VOLUME 7.8 fl (7.5-11.1); MONO % 7.4 % (3.8-10.2); PLATELET COUNT 211 10^3/uL (134-434); RBC 2.39 M/mm3 (3.60-5.2); RDW 19.4 % (11.6-15.6); WHITE BLOOD COUNT 12.8 K/mm3 (4.0-10.0)
[2022-04-21] MEDS: INSULIN SLIDING SCALE (NOVOLOG) 1 VIAL SQ SCH ×2 (12:02→18:47)
[2022-04-21 12:34] LABS: CALCIUM 7.7 mg/dL (8.5-10.1)
[2022-04-21 12:35] LABS: ALBUMIN 1.4 g/dl (3.4-5.0); BLOOD UREA NITROGEN 46.8 mg/dL (7-18); MAGNESIUM 2.1 mg/dL (1.8-2.4)
[2022-04-21 12:38] LABS: CREATININE 2.3 mg/dL (0.55-1.3); PHOSPHOROUS 3.1 mg/dL (2.5-4.9)
[2022-04-21 12:39] LABS: BILIRUBIN,TOTAL 0.3 mg/dL (0.2-1); TOT PROT 4.4 g/dl (6.4-8.2)
[2022-04-21] MEDS ORDERED: EPOETIN ALFA-EPBX 20,000 UNIT/ML VIAL SQ ONE (15:00)
[2022-04-21] MEDS ORDERED: SODIUM CHLORIDE 250 ML IV PRN (15:00)
[2022-04-21] MEDS: VANCOMYCIN 250 MG/5 ML ORAL SOLUTION PO SCH (18:43)
[2022-04-21] MEDS: AMITRIPTYLINE HCL 10 MG TABLET PO SCH (21:36)
[2022-04-21] MEDS: MIRTAZAPINE 15 MG TABLET (FP) PO SCH (21:36)
[2022-04-22] MEDS: VANCOMYCIN 250 MG/5 ML ORAL SOLUTION PO SCH ×4 (00:44→18:12)
[2022-04-22] MEDS: LEVOTHYROXINE NA 25 MCG TABLET (FP) PO SCH (06:13)
[2022-04-22] MEDS: INSULIN SLIDING SCALE (NOVOLOG) 1 VIAL SQ SCH ×3 (06:20→17:28)
[2022-04-22] MEDS ORDERED: INSULIN (NOVOLOG) ASPART 100 UNITS/ML 10ML VIAL ONE ×3 (06:27→17:51)
[2022-04-22] MEDS: VITAMIN B COMP W-C 1 EA TABLET (NEPHRO-VITE) PO SCH (09:58)
[2022-04-22] MEDS: SODIUM HYPOCHLORITE 0.25%- 473 ML BULK BOTTLE TP SCH (09:58)
[2022-04-22] MEDS: AMINO ACIDS/PROTEIN HYDROLYS 30 ML LIQUID.PKT PO SCH ×2 (09:58→18:11)
[2022-04-22] MEDS: ESCITALOPRAM OXALATE 10 MG TABLET PO SCH (09:58)
[2022-04-22] MEDS: ZINC SULFATE 220 MG CAPSULE (FP) PO SCH (09:58)
[2022-04-22] MEDS: COLLAGENASE CLOSTRIDIUM HIST. 30 GRAMS TUBE TP SCH (09:59)
[2022-04-22] MEDS: CEFTRIAXONE 1 GM in DEXTROSE 5%-WATER - 50 ML IVPB SCH (09:59)
[2022-04-22] MEDS: MIDODRINE HCL 5 MG TABLET PO SCH ×3 (09:59→18:11)
[2022-04-22] MEDS: ACETAMINOPHEN 325 MG TABLET (FP) PO PRN ×2 (11:31→16:53)
[2022-04-22] MEDS: MIRTAZAPINE 15 MG TABLET (FP) PO SCH (21:39)
[2022-04-22] MEDS: AMITRIPTYLINE HCL 10 MG TABLET PO SCH (21:39)
[2022-04-23] MEDS: VANCOMYCIN 250 MG/5 ML ORAL SOLUTION PO SCH ×5 (00:39→23:44)
[2022-04-23] MEDS: INSULIN SLIDING SCALE (NOVOLOG) 1 VIAL SQ SCH ×3 (06:41→17:09)
[2022-04-23] MEDS: LEVOTHYROXINE NA 25 MCG TABLET (FP) PO SCH (06:42)
[2022-04-23] MEDS: AMINO ACIDS/PROTEIN HYDROLYS 30 ML LIQUID.PKT PO SCH ×2 (08:36→17:11)
[2022-04-23] MEDS: CEFTRIAXONE 1 GM in DEXTROSE 5%-WATER - 50 ML IVPB SCH (09:36)
[2022-04-23] MEDS: ESCITALOPRAM OXALATE 10 MG TABLET PO SCH (09:37)
[2022-04-23] MEDS: VITAMIN B COMP W-C 1 EA TABLET (NEPHRO-VITE) PO SCH (09:37)
[2022-04-23] MEDS: ZINC SULFATE 220 MG CAPSULE (FP) PO SCH (09:37)
[2022-04-23] MEDS: SODIUM HYPOCHLORITE 0.25%- 473 ML BULK BOTTLE TP SCH (09:37)
[2022-04-23] MEDS: COLLAGENASE CLOSTRIDIUM HIST. 30 GRAMS TUBE TP SCH (09:39)
[2022-04-23] MEDS: MIDODRINE HCL 5 MG TABLET PO SCH ×3 (09:39→17:11)
[2022-04-23] MEDS ORDERED: SODIUM CHLORIDE 250 ML IV PRN (15:00)
[2022-04-23] MEDS ORDERED: EPOETIN ALFA-EPBX 20,000 UNIT/ML VIAL IVPUSH ONE (15:00)
[2022-04-23 20:51] LABS: HEMATOCRIT 22.3 % (32.4-45.2); MCH 30.5 pg (25.7-33.7); MCHC 31.1 g/dl (32.0-36.0); MEAN PLT VOLUME 7.9 fl (7.5-11.1); PLATELET COUNT 245 10^3/uL (134-434); RBC 2.27 M/mm3 (3.60-5.2); WHITE BLOOD COUNT 11.1 K/mm3 (4.0-10.0)
[2022-04-23 20:55] LABS: HEMOGLOBIN 6.9 GM/dL (10.7-15.3)
[2022-04-23 21:51] LABS: ALBUMIN 1.3 g/dl (3.4-5.0); BILIRUBIN,TOTAL 0.1 mg/dL (0.2-1); BLOOD UREA NITROGEN 54.4 mg/dL (7-18); CALCIUM 7.8 mg/dL (8.5-10.1); CREATININE 2.7 mg/dL (0.55-1.3); MAGNESIUM 1.9 mg/dL (1.8-2.4); PHOSPHOROUS 4.1 mg/dL (2.5-4.9); TOT PROT 4.5 g/dl (6.4-8.2)
[2022-04-23] MEDS: MIRTAZAPINE 15 MG TABLET (FP) PO SCH (22:15)
[2022-04-23] MEDS: AMITRIPTYLINE HCL 10 MG TABLET PO SCH (22:17)
[2022-04-23] MEDS: ACETAMINOPHEN 325 MG TABLET (FP) PO PRN (23:43)
[2022-04-24] MEDS: VANCOMYCIN 250 MG/5 ML ORAL SOLUTION PO SCH ×3 (06:32→17:00)
[2022-04-24] MEDS: LEVOTHYROXINE NA 25 MCG TABLET (FP) PO SCH (06:32)
[2022-04-24] MEDS ORDERED: INSULIN (NOVOLOG) ASPART 100 UNITS/ML 10ML VIAL ONE ×3 (06:35→11:47)
[2022-04-24] MEDS: INSULIN SLIDING SCALE (NOVOLOG) 1 VIAL SQ SCH ×3 (06:36→16:57)
[2022-04-24] MEDS: AMINO ACIDS/PROTEIN HYDROLYS 30 ML LIQUID.PKT PO SCH ×2 (10:27→16:56)
[2022-04-24] MEDS: VITAMIN B COMP W-C 1 EA TABLET (NEPHRO-VITE) PO SCH (10:27)
[2022-04-24] MEDS: CEFTRIAXONE 1 GM in DEXTROSE 5%-WATER - 50 ML IVPB SCH (10:27)
[2022-04-24] MEDS: MIDODRINE HCL 5 MG TABLET PO SCH ×3 (10:27→16:59)
[2022-04-24] MEDS: ZINC SULFATE 220 MG CAPSULE (FP) PO SCH (10:27)
[2022-04-24] MEDS: ESCITALOPRAM OXALATE 10 MG TABLET PO SCH (10:27)
[2022-04-24] MEDS: ACETAMINOPHEN 325 MG TABLET (FP) PO PRN ×2 (10:29→21:32)
[2022-04-24] MEDS: COLLAGENASE CLOSTRIDIUM HIST. 30 GRAMS TUBE TP SCH (10:30)
[2022-04-24] MEDS: SODIUM HYPOCHLORITE 0.25%- 473 ML BULK BOTTLE TP SCH (10:31)
[2022-04-24] MEDS ORDERED: HYDROmorphone HCL 2 MG TABLET PO PRN (15:42)
[2022-04-24] MEDS ORDERED: BISACODYL 10 MG SUPP.RECT PR ONE (15:43)
[2022-04-24] MEDS: MIRTAZAPINE 15 MG TABLET (FP) PO SCH (21:32)
[2022-04-24] MEDS: AMITRIPTYLINE HCL 10 MG TABLET PO SCH (21:32)
[2022-04-25] MEDS: VANCOMYCIN 250 MG/5 ML ORAL SOLUTION PO SCH ×4 (00:09→18:15)
[2022-04-25] MEDS ORDERED: INSULIN (NOVOLOG) ASPART 100 UNITS/ML 10ML VIAL ONE ×2 (05:32→13:03)
[2022-04-25] MEDS: INSULIN SLIDING SCALE (NOVOLOG) 1 VIAL SQ SCH ×3 (06:03→16:43)
[2022-04-25] MEDS: LEVOTHYROXINE NA 25 MCG TABLET (FP) PO SCH (06:03)
[2022-04-25] MEDS: ACETAMINOPHEN 325 MG TABLET (FP) PO PRN (06:04)
[2022-04-25] MEDS: ZINC SULFATE 220 MG CAPSULE (FP) PO SCH (09:53)
[2022-04-25] MEDS: ESCITALOPRAM OXALATE 10 MG TABLET PO SCH (09:53)
[2022-04-25] MEDS: VITAMIN B COMP W-C 1 EA TABLET (NEPHRO-VITE) PO SCH (09:53)
[2022-04-25] MEDS: AMINO ACIDS/PROTEIN HYDROLYS 30 ML LIQUID.PKT PO SCH ×3 (09:53→16:43)
[2022-04-25] MEDS: SODIUM HYPOCHLORITE 0.25%- 473 ML BULK BOTTLE TP SCH (09:54)
[2022-04-25] MEDS: MIDODRINE HCL 5 MG TABLET PO SCH ×3 (09:57→18:28)
[2022-04-25] MEDS: CEFTRIAXONE 1 GM in DEXTROSE 5%-WATER - 50 ML IVPB SCH (09:57)
[2022-04-25] MEDS: COLLAGENASE CLOSTRIDIUM HIST. 30 GRAMS TUBE TP SCH (09:58)
[2022-04-25 10:16] LABS: BASO % 0.3 % (0-2.0); EOS % 0.1 % (0-4.5); HEMATOCRIT 25.2 % (32.4-45.2); HEMOGLOBIN 8.1 GM/dL (10.7-15.3); LYMPH % 7.7 % (8-40); MCH 30.2 pg (25.7-33.7); MCHC 32.3 g/dl (32.0-36.0); MEAN CELL VOLUME 93.5 fl (80-96); MEAN PLT VOLUME 7.7 fl (7.5-11.1); MONO % 6.9 % (3.8-10.2); PLATELET COUNT 243 10^3/uL (134-434); RBC 2.69 M/mm3 (3.60-5.2); RDW 18.6 % (11.6-15.6); WHITE BLOOD COUNT 13.5 K/mm3 (4.0-10.0)
[2022-04-25 10:51] LABS: CALCIUM 8.2 mg/dL (8.5-10.1)
[2022-04-25 10:52] LABS: ALBUMIN 1.4 g/dl (3.4-5.0); BLOOD UREA NITROGEN 45.7 mg/dL (7-18)
[2022-04-25 10:54] LABS: CREATININE 2.7 mg/dL (0.55-1.3)
[2022-04-25 10:56] LABS: BILIRUBIN,TOTAL 0.4 mg/dL (0.2-1); PHOSPHOROUS 3.4 mg/dL (2.5-4.9); TOT PROT 4.6 g/dl (6.4-8.2)
[2022-04-25] MEDS ORDERED: DAPTOMYCIN 360 MG in SODIUM CHLORIDE 50 ML IVPB ONE (13:11)
[2022-04-25] MEDS: CEFTAZIDIME/AVIBACTAM 0.94 GM in DEXTROSE 5%-WATER - 100 ML IVPB SCH (14:45)
[2022-04-25] MEDS: AMITRIPTYLINE HCL 10 MG TABLET PO SCH (21:56)
[2022-04-25] MEDS: MIRTAZAPINE 15 MG TABLET (FP) PO SCH (21:56)
[2022-04-26] MEDS: VANCOMYCIN 250 MG/5 ML ORAL SOLUTION PO SCH ×4 (00:59→17:49)
[2022-04-26] MEDS: LEVOTHYROXINE NA 25 MCG TABLET (FP) PO SCH (06:35)
[2022-04-26] MEDS: INSULIN SLIDING SCALE (NOVOLOG) 1 VIAL SQ SCH ×3 (06:35→16:48)
[2022-04-26] MEDS: AMINO ACIDS/PROTEIN HYDROLYS 30 ML LIQUID.PKT PO SCH ×2 (08:16→17:33)
[2022-04-26 09:17] LABS: BASO % 0.2 % (0-2.0); EOS % 0.5 % (0-4.5); HEMATOCRIT 25.1 % (32.4-45.2); LYMPH % 7.3 % (8-40); MCHC 31.9 g/dl (32.0-36.0); MEAN CELL VOLUME 94.1 fl (80-96); MEAN PLT VOLUME 7.8 fl (7.5-11.1); MONO % 6.5 % (3.8-10.2); NEUT % 85.5 % (42.8-82.8); PLATELET COUNT 238 10^3/uL (134-434); RBC 2.66 M/mm3 (3.60-5.2); RDW 18.5 % (11.6-15.6); WHITE BLOOD COUNT 12.2 K/mm3 (4.0-10.0)
[2022-04-26 09:39] LABS: BLOOD UREA NITROGEN 54.9 mg/dL (7-18); CALCIUM 7.6 mg/dL (8.5-10.1); CREATININE 2.9 mg/dL (0.55-1.3)
[2022-04-26] MEDS ORDERED: SODIUM CHLORIDE 250 ML IV PRN (09:54)
[2022-04-26] MEDS ORDERED: EPOETIN ALFA-EPBX 40,000 UNIT/ML VIAL IVPUSH ONE (10:00)
[2022-04-26] MEDS: CEFTAZIDIME/AVIBACTAM 0.94 GM in DEXTROSE 5%-WATER - 100 ML IVPB SCH (12:10)
[2022-04-26] MEDS: ZINC SULFATE 220 MG CAPSULE (FP) PO SCH (12:10)
[2022-04-26] MEDS: ESCITALOPRAM OXALATE 10 MG TABLET PO SCH (12:10)
[2022-04-26] MEDS: SODIUM HYPOCHLORITE 0.25%- 473 ML BULK BOTTLE TP SCH (12:11)
[2022-04-26] MEDS: MIDODRINE HCL 5 MG TABLET PO SCH ×3 (12:11→17:48)
[2022-04-26] MEDS: VITAMIN B COMP W-C 1 EA TABLET (NEPHRO-VITE) PO SCH (12:11)
[2022-04-26] MEDS: COLLAGENASE CLOSTRIDIUM HIST. 30 GRAMS TUBE TP SCH (12:11)
[2022-04-26] MEDS ORDERED: DAPTOMYCIN 360 MG in SODIUM CHLORIDE 50 ML IVPB ONE ×2 (15:45→21:00)
[2022-04-26] MEDS: MIRTAZAPINE 15 MG TABLET (FP) PO SCH (21:25)
[2022-04-26] MEDS: AMITRIPTYLINE HCL 10 MG TABLET PO SCH (21:28)
[2022-04-27] MEDS: VANCOMYCIN 250 MG/5 ML ORAL SOLUTION PO SCH ×5 (00:57→23:11)
[2022-04-27] MEDS: INSULIN SLIDING SCALE (NOVOLOG) 1 VIAL SQ SCH ×3 (06:17→16:30)
[2022-04-27] MEDS: LEVOTHYROXINE NA 25 MCG TABLET (FP) PO SCH (06:19)
[2022-04-27] MEDS: AMINO ACIDS/PROTEIN HYDROLYS 30 ML LIQUID.PKT PO SCH ×3 (08:34→17:15)
[2022-04-27] MEDS: MIDODRINE HCL 5 MG TABLET PO SCH ×3 (10:33→17:15)
[2022-04-27] MEDS: ZINC SULFATE 220 MG CAPSULE (FP) PO SCH (10:33)
[2022-04-27] MEDS: ESCITALOPRAM OXALATE 10 MG TABLET PO SCH (10:33)
[2022-04-27] MEDS: VITAMIN B COMP W-C 1 EA TABLET (NEPHRO-VITE) PO SCH (10:33)
[2022-04-27] MEDS: COLLAGENASE CLOSTRIDIUM HIST. 30 GRAMS TUBE TP SCH (10:34)
[2022-04-27] MEDS: SODIUM HYPOCHLORITE 0.25%- 473 ML BULK BOTTLE TP SCH (10:34)
[2022-04-27] MEDS ORDERED: INSULIN (NOVOLOG) ASPART 100 UNITS/ML 10ML VIAL ONE (12:09)
[2022-04-27] MEDS: CEFTAZIDIME/AVIBACTAM 0.94 GM in DEXTROSE 5%-WATER - 100 ML IVPB SCH (13:00)
[2022-04-27] MEDS: AMITRIPTYLINE HCL 10 MG TABLET PO SCH (23:11)
[2022-04-27] MEDS: MIRTAZAPINE 15 MG TABLET (FP) PO SCH (23:11)
[2022-04-28] MEDS: INSULIN SLIDING SCALE (NOVOLOG) 1 VIAL SQ SCH ×3 (06:19→17:18)
[2022-04-28] MEDS: LEVOTHYROXINE NA 25 MCG TABLET (FP) PO SCH (06:33)
[2022-04-28] MEDS: VANCOMYCIN 250 MG/5 ML ORAL SOLUTION PO SCH ×3 (06:33→17:12)
[2022-04-28] MEDS: AMINO ACIDS/PROTEIN HYDROLYS 30 ML LIQUID.PKT PO SCH ×2 (07:57→17:26)
[2022-04-28] MEDS: MIDODRINE HCL 5 MG TABLET PO SCH ×4 (08:47→17:12)
[2022-04-28] MEDS ORDERED: LIDOCAINE HCL/PF (2%) 40 MG/2 ML VIAL IJ ONE (09:00)
[2022-04-28] MEDS ORDERED: SODIUM CHLORIDE 250 ML IV PRN (09:12)
[2022-04-28] MEDS ORDERED: EPOETIN ALFA-EPBX 40,000 UNIT/ML VIAL IVPUSH ONE (10:00)
[2022-04-28 10:39] LABS: BASO % 0.4 % (0-2.0); EOS % 1.5 % (0-4.5); HEMATOCRIT 29.1 % (32.4-45.2); HEMOGLOBIN 9.2 GM/dL (10.7-15.3); LYMPH % 16.6 % (8-40); MCH 30.6 pg (25.7-33.7); MCHC 31.8 g/dl (32.0-36.0); MEAN CELL VOLUME 96.4 fl (80-96); MEAN PLT VOLUME 7.7 fl (7.5-11.1); MONO % 5.9 % (3.8-10.2); NEUT % 75.6 % (42.8-82.8); PLATELET COUNT 258 10^3/uL (134-434); RBC 3.02 M/mm3 (3.60-5.2); RDW 19.2 % (11.6-15.6); WHITE BLOOD COUNT 10.7 K/mm3 (4.0-10.0)
[2022-04-28] MEDS: ALBUMIN HUMAN 25% 12.5 GM/50 ML VIAL IV SCH ×4 (10:47→12:24)
[2022-04-28 10:58] LABS: CALCIUM 7.7 mg/dL (8.5-10.1)
[2022-04-28 10:59] LABS: ALBUMIN 1.4 g/dl (3.4-5.0); BLOOD UREA NITROGEN 43.9 mg/dL (7-18); MAGNESIUM 1.9 mg/dL (1.8-2.4)
[2022-04-28 11:02] LABS: CREATININE 2.4 mg/dL (0.55-1.3); PHOSPHOROUS 3.5 mg/dL (2.5-4.9)
[2022-04-28 11:03] LABS: BILIRUBIN,TOTAL 0.3 mg/dL (0.2-1); TOT PROT 4.3 g/dl (6.4-8.2)
[2022-04-28] MEDS: DAPTOMYCIN 360 MG in SODIUM CHLORIDE 50 ML IVPB ONE ×2 (12:24→15:00)
[2022-04-28] MEDS: ZINC SULFATE 220 MG CAPSULE (FP) PO SCH (13:12)
[2022-04-28] MEDS: VITAMIN B COMP W-C 1 EA TABLET (NEPHRO-VITE) PO SCH (13:13)
[2022-04-28] MEDS: COLLAGENASE CLOSTRIDIUM HIST. 30 GRAMS TUBE TP SCH (13:13)
[2022-04-28] MEDS: ESCITALOPRAM OXALATE 10 MG TABLET PO SCH (13:13)
[2022-04-28] MEDS: CEFTAZIDIME/AVIBACTAM 0.94 GM in DEXTROSE 5%-WATER - 100 ML IVPB SCH (13:14)
[2022-04-28] MEDS: SODIUM HYPOCHLORITE 0.25%- 473 ML BULK BOTTLE TP SCH (13:14)
[2022-04-28] MEDS ORDERED: INSULIN (NOVOLOG) ASPART 100 UNITS/ML 10ML VIAL ONE (17:17)
[2022-04-28] MEDS: MIRTAZAPINE 15 MG TABLET (FP) PO SCH (22:05)
[2022-04-28] MEDS: AMITRIPTYLINE HCL 10 MG TABLET PO SCH (22:05)
[2022-04-29] MEDS: VANCOMYCIN 250 MG/5 ML ORAL SOLUTION PO SCH ×4 (01:00→17:28)
[2022-04-29] MEDS: INSULIN SLIDING SCALE (NOVOLOG) 1 VIAL SQ SCH ×3 (06:00→16:36)
[2022-04-29] MEDS: LEVOTHYROXINE NA 25 MCG TABLET (FP) PO SCH (06:01)
[2022-04-29] MEDS: AMINO ACIDS/PROTEIN HYDROLYS 30 ML LIQUID.PKT PO SCH ×2 (09:33→16:38)
[2022-04-29] MEDS: VITAMIN B COMP W-C 1 EA TABLET (NEPHRO-VITE) PO SCH (09:34)
[2022-04-29] MEDS: ZINC SULFATE 220 MG CAPSULE (FP) PO SCH (09:34)
[2022-04-29] MEDS: ESCITALOPRAM OXALATE 10 MG TABLET PO SCH (09:34)
[2022-04-29] MEDS: SODIUM HYPOCHLORITE 0.25%- 473 ML BULK BOTTLE TP SCH (09:35)
[2022-04-29] MEDS: COLLAGENASE CLOSTRIDIUM HIST. 30 GRAMS TUBE TP SCH (09:35)
[2022-04-29] MEDS: ACETAMINOPHEN 325 MG TABLET (FP) PO PRN (09:36)
[2022-04-29] MEDS: MIDODRINE HCL 5 MG TABLET PO SCH ×3 (09:36→17:29)
[2022-04-29 09:56] LABS: BASO % 1.1 % (0-2.0); HEMATOCRIT 30.1 % (32.4-45.2); HEMOGLOBIN 9.6 GM/dL (10.7-15.3); LYMPH % 17.8 % (8-40); MCH 30.7 pg (25.7-33.7); MCHC 31.8 g/dl (32.0-36.0); MEAN CELL VOLUME 96.4 fl (80-96); MEAN PLT VOLUME 7.8 fl (7.5-11.1); MONO % 7.7 % (3.8-10.2); NEUT % 72.4 % (42.8-82.8); PLATELET COUNT 255 10^3/uL (134-434); RBC 3.12 M/mm3 (3.60-5.2); RDW 19.1 % (11.6-15.6); WHITE BLOOD COUNT 10.9 K/mm3 (4.0-10.0)
[2022-04-29 11:04] LABS: CALCIUM 8.2 mg/dL (8.5-10.1)
[2022-04-29 11:05] LABS: BLOOD UREA NITROGEN 24.5 mg/dL (7-18)
[2022-04-29 11:07] LABS: CREATININE 1.9 mg/dL (0.55-1.3)
[2022-04-29] MEDS: CEFTAZIDIME/AVIBACTAM 0.94 GM in DEXTROSE 5%-WATER - 100 ML IVPB SCH (12:23)
[2022-04-29] MEDS ORDERED: SODIUM CHLORIDE 250 ML IV PRN (13:23)
[2022-04-29] MEDS ORDERED: LIDOCAINE HCL/PF (2%) 40 MG/2 ML VIAL IJ ONE (14:15)
[2022-04-29] MEDS: MIRTAZAPINE 15 MG TABLET (FP) PO SCH (22:52)
[2022-04-29] MEDS: AMITRIPTYLINE HCL 10 MG TABLET PO SCH (22:52)
[2022-04-30] MEDS: VANCOMYCIN 250 MG/5 ML ORAL SOLUTION PO SCH ×4 (01:00→17:34)
[2022-04-30] MEDS: INSULIN SLIDING SCALE (NOVOLOG) 1 VIAL SQ SCH ×3 (06:17→16:49)
[2022-04-30] MEDS: LEVOTHYROXINE NA 25 MCG TABLET (FP) PO SCH (06:17)
[2022-04-30] MEDS: AMINO ACIDS/PROTEIN HYDROLYS 30 ML LIQUID.PKT PO SCH ×3 (08:06→17:57)
[2022-04-30 09:53] LABS: BASO % 0.5 % (0-2.0); EOS % 1.1 % (0-4.5); HEMOGLOBIN 9.3 GM/dL (10.7-15.3); LYMPH % 13.1 % (8-40); MCH 29.9 pg (25.7-33.7); MCHC 30.9 g/dl (32.0-36.0); MEAN CELL VOLUME 96.7 fl (80-96); MEAN PLT VOLUME 8.4 fl (7.5-11.1); MONO % 8.8 % (3.8-10.2); NEUT % 76.5 % (42.8-82.8); PLATELET COUNT 282 10^3/uL (134-434); RDW 18.4 % (11.6-15.6); WHITE BLOOD COUNT 12.2 K/mm3 (4.0-10.0)
[2022-04-30 10:10] LABS: BLOOD UREA NITROGEN 37.6 mg/dL (7-18)
[2022-04-30] MEDS: VITAMIN B COMP W-C 1 EA TABLET (NEPHRO-VITE) PO SCH (10:13)
[2022-04-30] MEDS: ZINC SULFATE 220 MG CAPSULE (FP) PO SCH (10:13)
[2022-04-30] MEDS: ESCITALOPRAM OXALATE 10 MG TABLET PO SCH (10:13)
[2022-04-30 10:14] LABS: CREATININE 2.6 mg/dL (0.55-1.3)
[2022-04-30] MEDS: SODIUM HYPOCHLORITE 0.25%- 473 ML BULK BOTTLE TP SCH (10:14)
[2022-04-30] MEDS: COLLAGENASE CLOSTRIDIUM HIST. 30 GRAMS TUBE TP SCH (10:16)
[2022-04-30] MEDS: MIDODRINE HCL 5 MG TABLET PO SCH ×3 (10:16→18:14)
[2022-04-30] MEDS ORDERED: EPOETIN ALFA-EPBX 10,000 UNIT/ML VIAL IVPUSH ONE (12:00)
[2022-04-30] MEDS ORDERED: DAPTOMYCIN 500 MG in SODIUM CHLORIDE 50 ML IVPB ONE (13:00)
[2022-04-30] MEDS: CEFTAZIDIME/AVIBACTAM 0.94 GM in DEXTROSE 5%-WATER - 100 ML IVPB SCH (16:33)
[2022-04-30] MEDS: MIRTAZAPINE 15 MG TABLET (FP) PO SCH (22:02)
[2022-04-30] MEDS: AMITRIPTYLINE HCL 10 MG TABLET PO SCH (22:03)
[2022-05-01] MEDS: VANCOMYCIN 250 MG/5 ML ORAL SOLUTION PO SCH ×5 (00:45→23:59)
[2022-05-01] MEDS: INSULIN SLIDING SCALE (NOVOLOG) 1 VIAL SQ SCH ×3 (06:33→16:36)
[2022-05-01] MEDS: LEVOTHYROXINE NA 25 MCG TABLET (FP) PO SCH (06:34)
[2022-05-01] MEDS: VITAMIN B COMP W-C 1 EA TABLET (NEPHRO-VITE) PO SCH (10:23)
[2022-05-01] MEDS: ZINC SULFATE 220 MG CAPSULE (FP) PO SCH (10:23)
[2022-05-01] MEDS: MIDODRINE HCL 5 MG TABLET PO SCH ×3 (10:23→18:32)
[2022-05-01] MEDS: ESCITALOPRAM OXALATE 10 MG TABLET PO SCH (10:23)
[2022-05-01] MEDS: AMINO ACIDS/PROTEIN HYDROLYS 30 ML LIQUID.PKT PO SCH ×3 (10:23→18:24)
[2022-05-01] MEDS: COLLAGENASE CLOSTRIDIUM HIST. 30 GRAMS TUBE TP SCH (10:25)
[2022-05-01] MEDS: SODIUM HYPOCHLORITE 0.25%- 473 ML BULK BOTTLE TP SCH (14:00)
[2022-05-01] MEDS: CEFTAZIDIME/AVIBACTAM 0.94 GM in DEXTROSE 5%-WATER - 100 ML IVPB SCH (16:02)
[2022-05-01] MEDS: MIRTAZAPINE 15 MG TABLET (FP) PO SCH (21:10)
[2022-05-01] MEDS: AMITRIPTYLINE HCL 10 MG TABLET PO SCH (21:11)
[2022-05-02] MEDS: VANCOMYCIN 250 MG/5 ML ORAL SOLUTION PO SCH ×3 (05:52→17:32)
[2022-05-02] MEDS: LEVOTHYROXINE NA 25 MCG TABLET (FP) PO SCH (06:20)
[2022-05-02] MEDS: INSULIN SLIDING SCALE (NOVOLOG) 1 VIAL SQ SCH ×3 (06:21→16:06)
[2022-05-02] MEDS: AMINO ACIDS/PROTEIN HYDROLYS 30 ML LIQUID.PKT PO SCH ×3 (08:25→16:34)
[2022-05-02] MEDS: VITAMIN B COMP W-C 1 EA TABLET (NEPHRO-VITE) PO SCH (09:37)
[2022-05-02] MEDS: ESCITALOPRAM OXALATE 10 MG TABLET PO SCH (09:37)
[2022-05-02] MEDS: SODIUM HYPOCHLORITE 0.25%- 473 ML BULK BOTTLE TP SCH (09:38)
[2022-05-02] MEDS: ZINC SULFATE 220 MG CAPSULE (FP) PO SCH (09:38)
[2022-05-02] MEDS: COLLAGENASE CLOSTRIDIUM HIST. 30 GRAMS TUBE TP SCH (09:38)
[2022-05-02] MEDS: MIDODRINE HCL 5 MG TABLET PO SCH ×3 (09:38→17:33)
[2022-05-02] MEDS ORDERED: HYDROmorphone HCl 2 MG/ML VIAL IVPUSH PRN ×2 (13:51→14:23)
[2022-05-02] MEDS: CEFTAZIDIME/AVIBACTAM 0.94 GM in DEXTROSE 5%-WATER - 100 ML IVPB SCH (14:41)
[2022-05-02] MEDS: LACTOBACILLUS ACIDOPHILUS 1 TABLET PO SCH (16:03)
[2022-05-02] MEDS: MIRTAZAPINE 15 MG TABLET (FP) PO SCH (21:06)
[2022-05-02] MEDS: AMITRIPTYLINE HCL 10 MG TABLET PO SCH (21:07)
[2022-05-03] MEDS: VANCOMYCIN 250 MG/5 ML ORAL SOLUTION PO SCH ×4 (00:36→19:24)
[2022-05-03] MEDS: INSULIN SLIDING SCALE (NOVOLOG) 1 VIAL SQ SCH ×3 (06:08→18:58)
[2022-05-03] MEDS: LEVOTHYROXINE NA 25 MCG TABLET (FP) PO SCH (06:08)
[2022-05-03] MEDS: AMINO ACIDS/PROTEIN HYDROLYS 30 ML LIQUID.PKT PO SCH ×3 (09:00→18:30)
[2022-05-03] MEDS: COLLAGENASE CLOSTRIDIUM HIST. 30 GRAMS TUBE TP SCH (09:57)
[2022-05-03] MEDS: SODIUM HYPOCHLORITE 0.25%- 473 ML BULK BOTTLE TP SCH (09:57)
[2022-05-03] MEDS: ZINC SULFATE 220 MG CAPSULE (FP) PO SCH (09:57)
[2022-05-03] MEDS: ESCITALOPRAM OXALATE 10 MG TABLET PO SCH (09:57)
[2022-05-03] MEDS: VITAMIN B COMP W-C 1 EA TABLET (NEPHRO-VITE) PO SCH (09:57)
[2022-05-03] MEDS: LACTOBACILLUS ACIDOPHILUS 1 TABLET PO SCH (09:57)
[2022-05-03] MEDS: MIDODRINE HCL 5 MG TABLET PO SCH ×3 (09:57→18:16)
[2022-05-03] MEDS ORDERED: SODIUM CHLORIDE 250 ML IV PRN (13:07)
[2022-05-03] MEDS ORDERED: EPOETIN ALFA-EPBX 20,000 UNIT/ML VIAL SQ ONE (13:10)
[2022-05-03] MEDS ORDERED: DAPTOMYCIN 360 MG in SODIUM CHLORIDE 50 ML IVPB ONE (16:13)
[2022-05-03] MEDS ORDERED: CEFAZOLIN SODIUM 2 GM in DEXTROSE 5%-WATER 100 ML IVPB ONE (16:16)
[2022-05-03] MEDS ORDERED: INSULIN (NOVOLOG) ASPART 100 UNITS/ML 10ML VIAL ONE (17:29)
[2022-05-03 17:45] VITALS: RESP 18
[2022-05-03] MEDS: MIRTAZAPINE 15 MG TABLET (FP) PO SCH (21:45)
[2022-05-03] MEDS: AMITRIPTYLINE HCL 10 MG TABLET PO SCH (21:45)
[2022-05-04] MEDS: VANCOMYCIN 250 MG/5 ML ORAL SOLUTION PO SCH ×4 (01:00→17:13)
[2022-05-04] MEDS: INSULIN SLIDING SCALE (NOVOLOG) 1 VIAL SQ SCH ×3 (06:47→17:11)
[2022-05-04] MEDS: LEVOTHYROXINE NA 25 MCG TABLET (FP) PO SCH (06:47)
[2022-05-04] MEDS: AMINO ACIDS/PROTEIN HYDROLYS 30 ML LIQUID.PKT PO SCH ×3 (08:13→17:10)
[2022-05-04] MEDS: LACTOBACILLUS ACIDOPHILUS 1 TABLET PO SCH (10:39)
[2022-05-04] MEDS: ZINC SULFATE 220 MG CAPSULE (FP) PO SCH (10:39)
[2022-05-04] MEDS: MIDODRINE HCL 5 MG TABLET PO SCH ×3 (10:39→17:11)
[2022-05-04] MEDS: COLLAGENASE CLOSTRIDIUM HIST. 30 GRAMS TUBE TP SCH (10:39)
[2022-05-04] MEDS: VITAMIN B COMP W-C 1 EA TABLET (NEPHRO-VITE) PO SCH (10:39)
[2022-05-04] MEDS: ESCITALOPRAM OXALATE 10 MG TABLET PO SCH (10:39)
[2022-05-04] MEDS: SODIUM HYPOCHLORITE 0.25%- 473 ML BULK BOTTLE TP SCH (10:39)
[2022-05-04 11:18] LABS: BASO % 0.4 % (0-2.0); EOS % 1.1 % (0-4.5); HEMATOCRIT 32.7 % (32.4-45.2); LYMPH % 11.8 % (8-40); MCH 30.2 pg (25.7-33.7); MCHC 30.7 g/dl (32.0-36.0); MEAN CELL VOLUME 98.4 fl (80-96); MEAN PLT VOLUME 8.5 fl (7.5-11.1); MONO % 8.6 % (3.8-10.2); NEUT % 78.1 % (42.8-82.8); PLATELET COUNT 234 10^3/uL (134-434); RBC 3.33 M/mm3 (3.60-5.2); RDW 20.7 % (11.6-15.6); WHITE BLOOD COUNT 10.9 K/mm3 (4.0-10.0)
[2022-05-04] MEDS ORDERED: INSULIN (NOVOLOG) ASPART 100 UNITS/ML 10ML VIAL ONE ×2 (11:40→17:44)
[2022-05-04 12:04] LABS: BLOOD UREA NITROGEN 34.4 mg/dL (7-18); MAGNESIUM 2.3 mg/dL (1.8-2.4)
[2022-05-04 12:05] LABS: ANISOCYTOSIS 1+; CALCIUM 8.4 mg/dL (8.5-10.1); MACROCYTOSIS 1+
[2022-05-04 12:08] LABS: CREATININE 2.6 mg/dL (0.55-1.3); PHOSPHOROUS 5.5 mg/dL (2.5-4.9)
[2022-05-04] MEDS ORDERED: metroNIDAZOLE 250 MG TABLET PO SCH (20:00)
[2022-05-04 20:43] VITALS: BP 156/87; PULSE 101; TEMP 99
[2022-05-05] MEDS ORDERED: valACYclovir HCL 500 MG TABLET (FP) PO ONE (16:00)
== END 2022-05-04 21:11 | DRG 871 ==
LOC: JER 13:43 → JERBED 19:10 → J4S 04-06 03:23 → J6S 04-19 19:25
PROVIDERS: ADMIT Internal Medicine; ATTEND Internal Medicine
PROC: 30233N1 Transfusion of Nonautologous Red Blood Cells into Peripheral Vein, Percutaneous Approach (ICD-10-PCS; 2022-04-06)
PROC: 5A1D70Z Performance of Urinary Filtration, Intermittent, Less than 6 Hours Per Day (ICD-10-PCS; 2022-04-06)
PROC: 5A1D70Z Performance of Urinary Filtration, Intermittent, Less than 6 Hours Per Day (ICD-10-PCS; 2022-04-09)
PROC: 5A1D70Z Performance of Urinary Filtration, Intermittent, Less than 6 Hours Per Day (ICD-10-PCS; 2022-04-14)
PROC: 5A1D70Z Performance of Urinary Filtration, Intermittent, Less than 6 Hours Per Day (ICD-10-PCS; 2022-04-23)
PROC: 0HB8XZZ Excision of Buttock Skin, External Approach (ICD-10-PCS; 2022-04-26)
PROC: 2W15X6Z Compression of Back using Pressure Dressing (ICD-10-PCS; 2022-04-26)
PROC: 5A1D70Z Performance of Urinary Filtration, Intermittent, Less than 6 Hours Per Day (ICD-10-PCS; 2022-04-28)
PROC: 079T3ZX Drainage of Bone Marrow, Percutaneous Approach, Diagnostic (ICD-10-PCS; principal; 2022-04-29)
PROC: 5A1D70Z Performance of Urinary Filtration, Intermittent, Less than 6 Hours Per Day (ICD-10-PCS; 2022-04-30)
PROC: 5A1D70Z Performance of Urinary Filtration, Intermittent, Less than 6 Hours Per Day (ICD-10-PCS; 2022-05-03)
DX: A41.89 Other specified sepsis (principal); E43 Unspecified severe protein-calorie malnutrition; J12.82 Pneumonia due to coronavirus disease 2019; L89.154 Pressure ulcer of sacral region, stage 4; N18.6 End stage renal disease; U07.1 COVID-19; R53.2 Functional quadriplegia; I12.0 Hypertensive chronic kidney disease with stage 5 chronic kidney disease or end stage renal disease; F31.89 Other bipolar disorder; A04.72 Enterocolitis due to Clostridium difficile, not specified as recurrent; M86.68 Other chronic osteomyelitis, other site; Z68.1 Body mass index [BMI] 19.9 or less, adult; I96 Gangrene, not elsewhere classified; L89.150 Pressure ulcer of sacral region, unstageable; L89.522 Pressure ulcer of left ankle, stage 2; L89.140 Pressure ulcer of left lower back, unstageable; D72.829 Elevated white blood cell count, unspecified; E11.69 Type 2 diabetes mellitus with other specified complication; E78.5 Hyperlipidemia, unspecified; J44.9 Chronic obstructive pulmonary disease, unspecified; K21.9 Gastro-esophageal reflux disease without esophagitis; E87.6 Hypokalemia; D63.8 Anemia in other chronic diseases classified elsewhere; E03.9 Hypothyroidism, unspecified; E11.22 Type 2 diabetes mellitus with diabetic chronic kidney disease; Z99.2 Dependence on renal dialysis; B96.20 Unspecified Escherichia coli [E. coli] as the cause of diseases classified elsewhere; B95.2 Enterococcus as the cause of diseases classified elsewhere; D63.1 Anemia in chronic kidney disease; F39 Unspecified mood [affective] disorder; R16.1 Splenomegaly, not elsewhere classified; Z88.0 Allergy status to penicillin; Z71.89 Other specified counseling
CPT/HCPCS: 36415; 36430; 71045-TC-FY; 72132-TC; 72192-TC; 80048; 80053; 82272; 82308; 82550; 82607; 82728; 82746; 82962; 83540; 83550; 83735; 84100; 85025; 85027; 86140; 86803; 86850; 86900; 86901; 86922; 87040; 87070; 87075; 87186; 87205; 87324; 87340; 87449; 93005; 93010; 97161-GP; 99285-25; C9803-CS; J0878; J1644; J1756; P9047; P9058; Q5106; Q9967; U0003; U0005

== ENCOUNTER 2022-06-02 02:16 | Inpatient (IN) | payer OTHER ==
[2022-06-02] MEDS ORDERED: ACETAMINOPHEN INJECTION 100 ML IVPB ONE (04:15)
[2022-06-02] MEDS ORDERED: SODIUM CHLORIDE 0.9% 500 ML INFUS.BAG IV ONE ×2 (04:40→07:42)
[2022-06-02 04:58] LABS: INR 2.05 (0.83-1.09); PROTHROMBIN TIME (PATIENT) 23.7 SEC (9.7-13.0)
[2022-06-02 04:59] LABS: CHLORIDE 102 mmol/L (98-107); SODIUM 138 mmol/L (136-145)
[2022-06-02 05:01] LABS: ACTIVATED PTT 36.7 SECONDS (25.2-36.5); GLUCOSE,RANDOM 104 mg/dL (74-106); LIPASE 10 U/L (73-393)
[2022-06-02 05:02] LABS: ALBUMIN 1.5 g/dl (3.4-5.0); ANION GAP 12 MMOL/L (8-16); BLOOD UREA NITROGEN 33.5 mg/dL (7-18); CO2 24 mmol/L (21-32)
[2022-06-02 05:05] LABS: CREATININE 2.5 mg/dL (0.55-1.3); SGOT/AST 29 U/L (15-37)
[2022-06-02 05:06] LABS: BILIRUBIN,TOTAL 0.9 mg/dL (0.2-1); TOT PROT 4.7 g/dl (6.4-8.2)
[2022-06-02 05:07] LABS: ALK PHOS 154 U/L (45-117); HEMATOCRIT 25.8 % (32.4-45.2); HEMOGLOBIN 7.8 GM/dL (10.7-15.3); MCH 29.6 pg (25.7-33.7); MCHC 30.3 g/dl (32.0-36.0); MEAN CELL VOLUME 97.6 fl (80-96); MEAN PLT VOLUME 8.6 fl (7.5-11.1); PLATELET COUNT 212 10^3/uL (134-434); RBC 2.64 M/mm3 (3.60-5.2); RDW 17.4 % (11.6-15.6); WHITE BLOOD COUNT 28.6 K/mm3 (4.0-10.0)
[2022-06-02 05:31] LABS: SGPT/ALT < 6 U/L (13-61)
[2022-06-02] MEDS ORDERED: ACETAMINOPHEN 1000 MG/100 ML BAG IVPB ONE (05:52)
[2022-06-02] MEDS ORDERED: NOREPINEPHRINE BITARTRATE/D5W 8 MG/250 ML BAG IVPB SCH (08:00)
[2022-06-02] MEDS: CIPROFLOXACIN 400 MG/D5W 400 MG/200 ML IVPB IVPB ONE ×2 (08:20→09:35)
[2022-06-02 08:25] LABS: ANISOCYTOSIS 2+; MACROCYTOSIS 0; OVALOCYTE 1+
[2022-06-02] MEDS ORDERED: VANCOMYCIN 1 GM in D5W (PRE-DOCKED) 1,000 MG/250 ML IVPB ONE (08:30)
[2022-06-02] MEDS ORDERED: LACTATED RINGERS SOLUTION 1,000 ML/1,000 ML INFUS.BAG IV SCH ×2 (08:30→17:30)
[2022-06-02] MEDS ORDERED: NOREPINEPHRINE BITARTRATE 4,000 MCG in DEXTROSE 5%-WATER - 496 ML IV SCH (09:00)
[2022-06-02] MEDS ORDERED: NOREPINEPHRINE BITARTRATE 4 MG/4 ML ML IV ONE ×2 (09:01→14:29)
[2022-06-02] MEDS ORDERED: VANCOMYCIN/WATER FOR INJ (PEG) 1,000 MG/200 ML BAG IVPB ONE ×2 (09:07→09:13)
[2022-06-02] MEDS ORDERED: FENTANYL CITRATE/PF 50 MCG/ML VIAL ONE (09:46)
[2022-06-02] MEDS ORDERED: MEROPENEM 1 GM in DEXTROSE 5%-WATER 100 ML IVPB ONE (10:26)
[2022-06-02] MEDS ORDERED: MEROPENEM 1 GM VIAL (RESTRICTED TO ID) IVPB ONE (11:48)
[2022-06-02] MEDS: INSULIN SLIDING SCALE (NOVOLOG) 1 VIAL SQ SCH ×3 (12:28→23:25)
[2022-06-02] MEDS ORDERED: ACETAMINOPHEN 1000 MG/100 ML BAG IVPB PRN (13:03)
[2022-06-02] MEDS ORDERED: DAPTOMYCIN 600 MG in SODIUM CHLORIDE 50 ML IVPB ONE (15:00)
[2022-06-02] MEDS ORDERED: MIDAZOLAM HCL 2 MG/2 ML SINGLE DOSE VIAL IVPUSH ONE (15:54)
[2022-06-02] MEDS: CEFTAZIDIME/AVIBACTAM 0.94 GM in DEXTROSE 5%-WATER - 250 ML IVPB SCH (17:46)
[2022-06-02] MEDS: LEVOTHYROXINE SODIUM 100 MCG/ML 1 ML VIAL IVPUSH SCH (17:46)
[2022-06-02] MEDS: NOREPINEPHRINE BITARTRATE/D5W 8 MG/250 ML BAG IVPB SCH (17:46)
[2022-06-02] MEDS: MUPIROCIN 2% TOPICAL OINTMENT FOR DECOLONIZATION NS SCH ×2 (17:47→21:21)
[2022-06-02] MEDS ORDERED: LIDOCAINE HCL 1%, 10 MG/ML (20ML VIAL) NR ONE (19:43)
[2022-06-02] MEDS: VASOPRESSIN 40 UNITS/100 ML BAG IV SCH (21:01)
[2022-06-02] MEDS ORDERED: LACTATED RINGERS SOLUTION 1000 ML INFUS.BAG IV SCH (21:15)
[2022-06-02] MEDS: HEPARIN NA (PORCINE) 5,000 UNITS/ML 1ML VIAL SQ SCH (21:21)
[2022-06-02] MEDS: CHLORHEXIDINE GLUCONATE 4% CLEANSER FOR DECOLONIZATION TP SCH (21:21)
[2022-06-02 23:03] LABS: ARTERIAL BLD GAS O2 SATURATION 97.3 % (95-98); ARTERIAL BLOOD GAS BASE EXCESS -5.2 mmol/L (-2-2); ARTERIAL BLOOD GAS PO2 96.3 mmHg (80-100); ARTERIAL BLOOD GAS pH 7.383 (7.350-7.450)
[2022-06-02 23:14] LABS: BASO % 0.1 % (0-2.0); EOS % 0.2 % (0-4.5); HEMATOCRIT 31.8 % (32.4-45.2); HEMOGLOBIN 9.3 GM/dL (10.7-15.3); LYMPH % 3.5 % (8-40); MCH 28.1 pg (25.7-33.7); MCHC 29.2 g/dl (32.0-36.0); MEAN CELL VOLUME 96.2 fl (80-96); MEAN PLT VOLUME 7.8 fl (7.5-11.1); NEUT % 90.2 % (42.8-82.8); PLATELET COUNT 239 10^3/uL (134-434); RBC 3.31 M/mm3 (3.60-5.2); RDW 17.8 % (11.6-15.6); WHITE BLOOD COUNT 25.1 K/mm3 (4.0-10.0)
[2022-06-02 23:28] LABS: CHLORIDE 100 mmol/L (98-107); SODIUM 134 mmol/L (136-145)
[2022-06-02 23:30] LABS: CALCIUM 10.1 mg/dL (8.5-10.1)
[2022-06-02 23:31] LABS: ALBUMIN 1.4 g/dl (3.4-5.0); ANION GAP 10 MMOL/L (8-16); BLOOD UREA NITROGEN 41.3 mg/dL (7-18); CO2 23 mmol/L (21-32); GLUCOSE,RANDOM 117 mg/dL (74-106); MAGNESIUM 2.2 mg/dL (1.8-2.4)
[2022-06-02 23:34] LABS: CREATININE 2.5 mg/dL (0.55-1.3); PHOSPHOROUS 2.4 mg/dL (2.5-4.9); SGOT/AST 34 U/L (15-37)
[2022-06-02 23:36] LABS: BILIRUBIN,TOTAL 1.1 mg/dL (0.2-1); TOT PROT 4.5 g/dl (6.4-8.2)
[2022-06-02 23:42] LABS: ALK PHOS 194 U/L (45-117); SGPT/ALT < 6 U/L (13-61)
[2022-06-02 23:47] LABS: ANISOCYTOSIS 2+; MACROCYTOSIS 0; OVALOCYTE 1+; TARGET CELLS 1+
[2022-06-03] MEDS: INSULIN SLIDING SCALE (NOVOLOG) 1 VIAL SQ SCH ×4 (06:38→21:46)
[2022-06-03] MEDS: NOREPINEPHRINE BITARTRATE/D5W 8 MG/250 ML BAG IVPB SCH ×2 (07:32→14:31)
[2022-06-03] MEDS ORDERED: SODIUM CHLORIDE 250 ML IV PRN (07:33)
[2022-06-03 07:41] LABS: HEMATOCRIT 32.4 % (32.4-45.2); HEMOGLOBIN 9.5 GM/dL (10.7-15.3); MCH 28.4 pg (25.7-33.7); MCHC 29.4 g/dl (32.0-36.0); MEAN CELL VOLUME 96.5 fl (80-96); MEAN PLT VOLUME 7.9 fl (7.5-11.1); PLATELET COUNT 249 10^3/uL (134-434); RBC 3.36 M/mm3 (3.60-5.2); RDW 17.7 % (11.6-15.6); WHITE BLOOD COUNT 26.3 K/mm3 (4.0-10.0)
[2022-06-03 08:00] LABS: MAGNESIUM 2.4 mg/dL (1.8-2.4)
[2022-06-03 08:04] LABS: PHOSPHOROUS 2.5 mg/dL (2.5-4.9)
[2022-06-03 08:35] LABS: ANISOCYTOSIS 0; MACROCYTOSIS 0
[2022-06-03 08:56] LABS: CHLORIDE 99 mmol/L (98-107); SODIUM 134 mmol/L (136-145)
[2022-06-03 08:58] LABS: CALCIUM 10.2 mg/dL (8.5-10.1)
[2022-06-03 08:59] LABS: ALBUMIN 1.3 g/dl (3.4-5.0); ANION GAP 13 MMOL/L (8-16); BLOOD UREA NITROGEN 41.6 mg/dL (7-18); CO2 21 mmol/L (21-32); GLUCOSE,RANDOM 124 mg/dL (74-106)
[2022-06-03] MEDS ORDERED: EPOETIN ALFA-EPBX 10,000 UNIT/ML VIAL IVPUSH ONE (09:00)
[2022-06-03 09:02] LABS: CREATININE 2.6 mg/dL (0.55-1.3); SGOT/AST 30 U/L (15-37)
[2022-06-03 09:03] LABS: BILIRUBIN,TOTAL 1.2 mg/dL (0.2-1); TOT PROT 4.4 g/dl (6.4-8.2)
[2022-06-03 09:05] LABS: ALK PHOS 256 U/L (45-117); SGPT/ALT < 6 U/L (13-61)
[2022-06-03] MEDS: HEPARIN NA (PORCINE) 5,000 UNITS/ML 1ML VIAL SQ SCH ×2 (11:33→21:25)
[2022-06-03] MEDS: MUPIROCIN 2% TOPICAL OINTMENT FOR DECOLONIZATION NS SCH ×2 (11:33→21:25)
[2022-06-03] MEDS: LEVOTHYROXINE SODIUM 100 MCG/ML 1 ML VIAL IVPUSH SCH (11:33)
[2022-06-03] MEDS ORDERED: SODIUM CHLORIDE 250 ML IV STA (11:58)
[2022-06-03] MEDS: HYDROCORTISONE SOD SUCCINATE 100 MG/2 ML VIAL IVPUSH SCH ×2 (13:45→17:36)
[2022-06-03] MEDS: FLUDROCORTISONE ACETATE 0.1 MG TABLET (FP) PO SCH (14:20)
[2022-06-03] MEDS: CEFTAZIDIME/AVIBACTAM 0.94 GM in DEXTROSE 5%-WATER - 250 ML IVPB SCH (17:36)
[2022-06-03 21:57] LABS: EPI CELLS >36 /uL (0-25.1); HYALINE CASTS 14 /uL (0-3.1); URINE APPEARANCE CLOUDY; URINE BACTERIA 95 /uL (0-1359); URINE BILIRUBIN NEGATIVE (NEGATIVE); URINE COLOR YELLOW; URINE GLUCOSE (UA) 1+ (NEGATIVE); URINE KETONE 1+ (NEGATIVE); URINE LEUK ESTERASE 3+ (NEGATIVE); URINE NITRITE NEGATIVE (NEGATIVE); URINE PROTEIN 2+ (NEGATIVE); URINE RBC 16 /uL (0-23.9); URINE UROBILINOGEN 0.2 mg/dL (0.2-1.0); URINE WBC 355 /uL (0-25.8)
[2022-06-03] MEDS: CHLORHEXIDINE GLUCONATE 4% CLEANSER FOR DECOLONIZATION TP SCH (22:29)
[2022-06-04] MEDS: HYDROCORTISONE SOD SUCCINATE 100 MG/2 ML VIAL IVPUSH SCH ×5 (02:06→23:59)
[2022-06-04] MEDS: NOREPINEPHRINE BITARTRATE/D5W 8 MG/250 ML BAG IVPB SCH (02:07)
[2022-06-04] MEDS ORDERED: DAPTOMYCIN 600 MG in SODIUM CHLORIDE 50 ML IVPB ONE (06:00)
[2022-06-04] MEDS: VASOPRESSIN 40 UNITS/100 ML BAG IV SCH ×2 (06:09→22:04)
[2022-06-04] MEDS: INSULIN SLIDING SCALE (NOVOLOG) 1 VIAL SQ SCH ×4 (07:05→22:05)
[2022-06-04 07:39] LABS: HEMATOCRIT 31.8 % (32.4-45.2); HEMOGLOBIN 9.3 GM/dL (10.7-15.3); MCH 28.7 pg (25.7-33.7); MCHC 29.4 g/dl (32.0-36.0); MEAN CELL VOLUME 97.8 fl (80-96); PLATELET COUNT 202 10^3/uL (134-434); RBC 3.25 M/mm3 (3.60-5.2); RDW 17.7 % (11.6-15.6); WHITE BLOOD COUNT 24.6 K/mm3 (4.0-10.0)
[2022-06-04 07:42] LABS: CHLORIDE 101 mmol/L (98-107); SODIUM 138 mmol/L (136-145)
[2022-06-04 07:45] LABS: ALBUMIN 1.4 g/dl (3.4-5.0); ANION GAP 16 MMOL/L (8-16); BLOOD UREA NITROGEN 31.1 mg/dL (7-18); CALCIUM 9.4 mg/dL (8.5-10.1); CO2 21 mmol/L (21-32); MAGNESIUM 2.3 mg/dL (1.8-2.4)
[2022-06-04 07:46] LABS: GLUCOSE,RANDOM 182 mg/dL (74-106)
[2022-06-04 07:49] LABS: CREATININE 1.7 mg/dL (0.55-1.3); PHOSPHOROUS 2.2 mg/dL (2.5-4.9); SGOT/AST 15 U/L (15-37)
[2022-06-04 07:50] LABS: BILIRUBIN,TOTAL 1.3 mg/dL (0.2-1); TOT PROT 4.4 g/dl (6.4-8.2)
[2022-06-04 07:55] LABS: ALK PHOS 337 U/L (45-117); SGPT/ALT < 6 U/L (13-61)
[2022-06-04] MEDS: FLUDROCORTISONE ACETATE 0.1 MG TABLET (FP) PO SCH (09:18)
[2022-06-04] MEDS: HEPARIN NA (PORCINE) 5,000 UNITS/ML 1ML VIAL SQ SCH ×2 (09:26→22:05)
[2022-06-04] MEDS: LEVOTHYROXINE SODIUM 100 MCG/ML 1 ML VIAL IVPUSH SCH (09:26)
[2022-06-04] MEDS: MUPIROCIN 2% TOPICAL OINTMENT FOR DECOLONIZATION NS SCH ×2 (10:00→22:03)
[2022-06-04] MEDS ORDERED: NOREPINEPHRINE BITARTRATE 4 MG/4 ML ML IV ONE (13:47)
[2022-06-04] MEDS: CEFTAZIDIME/AVIBACTAM 0.94 GM in DEXTROSE 5%-WATER - 250 ML IVPB SCH (15:45)
[2022-06-04] MEDS ORDERED: HYDROmorphone HCl 2 MG/ML VIAL IVPUSH PRN (17:58)
[2022-06-04] MEDS ORDERED: FAT EMULSION/OLIVE/SOY (CLINOLIPID) 250 ML EMULSION IV SCH (22:00)
[2022-06-04] MEDS: AMINO ACIDS 4.25%/D5W 1,000 ML IV SCH (22:03)
[2022-06-04] MEDS: CHLORHEXIDINE GLUCONATE 4% CLEANSER FOR DECOLONIZATION TP SCH (22:04)
[2022-06-05] MEDS: AMINO ACIDS 4.25%/D5W 1,000 ML IV SCH ×3 (00:31→23:35)
[2022-06-05] MEDS: HYDROmorphone HCl 2 MG/ML VIAL IVPUSH PRN ×3 (02:01→23:36)
[2022-06-05] MEDS: HYDROCORTISONE SOD SUCCINATE 100 MG/2 ML VIAL IVPUSH SCH ×4 (06:39→23:35)
[2022-06-05] MEDS: INSULIN SLIDING SCALE (NOVOLOG) 1 VIAL SQ SCH ×4 (06:42→22:10)
[2022-06-05 07:26] LABS: HEMATOCRIT 27.6 % (32.4-45.2); HEMOGLOBIN 8.4 GM/dL (10.7-15.3); MCH 29.2 pg (25.7-33.7); MCHC 30.6 g/dl (32.0-36.0); MEAN CELL VOLUME 95.6 fl (80-96); MEAN PLT VOLUME 8.5 fl (7.5-11.1); PLATELET COUNT 152 10^3/uL (134-434); RBC 2.88 M/mm3 (3.60-5.2); WHITE BLOOD COUNT 16.1 K/mm3 (4.0-10.0)
[2022-06-05 07:31] LABS: CHLORIDE 100 mmol/L (98-107); SODIUM 136 mmol/L (136-145)
[2022-06-05 07:35] LABS: CALCIUM 8.5 mg/dL (8.5-10.1)
[2022-06-05 07:36] LABS: ALBUMIN 1.3 g/dl (3.4-5.0); ANION GAP 11 MMOL/L (8-16); CO2 24 mmol/L (21-32); GLUCOSE,RANDOM 216 mg/dL (74-106); MAGNESIUM 2.1 mg/dL (1.8-2.4)
[2022-06-05 07:39] LABS: CREATININE 2.1 mg/dL (0.55-1.3); PHOSPHOROUS 1.8 mg/dL (2.5-4.9); SGOT/AST 15 U/L (15-37)
[2022-06-05 07:40] LABS: BILIRUBIN,TOTAL 0.9 mg/dL (0.2-1)
[2022-06-05 07:41] LABS: ALK PHOS 363 U/L (45-117)
[2022-06-05 07:44] LABS: SGPT/ALT < 6 U/L (13-61)
[2022-06-05] MEDS: FLUDROCORTISONE ACETATE 0.1 MG TABLET (FP) PO SCH (09:29)
[2022-06-05] MEDS: MUPIROCIN 2% TOPICAL OINTMENT FOR DECOLONIZATION NS SCH ×2 (09:29→21:34)
[2022-06-05] MEDS: HEPARIN NA (PORCINE) 5,000 UNITS/ML 1ML VIAL SQ SCH ×2 (09:29→21:34)
[2022-06-05] MEDS: LEVOTHYROXINE SODIUM 100 MCG/ML 1 ML VIAL IVPUSH SCH (09:50)
[2022-06-05] MEDS: MIDODRINE HCL 5 MG TABLET PO SCH ×3 (09:50→18:29)
[2022-06-05] MEDS: CEFTAZIDIME/AVIBACTAM 0.94 GM in DEXTROSE 5%-WATER - 250 ML IVPB SCH (15:58)
[2022-06-05] MEDS ORDERED: ALPRAZolam 0.25 MG TABLET PO PRN (18:28)
[2022-06-05] MEDS: VASOPRESSIN 40 UNITS/100 ML BAG IV SCH (19:50)
[2022-06-05] MEDS: CHLORHEXIDINE GLUCONATE 4% CLEANSER FOR DECOLONIZATION TP SCH (21:34)
[2022-06-05] MEDS: FAT EMUL/SOY/MCT/OLIV/FISH OIL 250 ML IV SCH ×2 (21:34)
[2022-06-05] MEDS: MELATONIN 5 MG TABLETS PO PRN (22:11)
[2022-06-06] MEDS: HYDROCORTISONE SOD SUCCINATE 100 MG/2 ML VIAL IVPUSH SCH ×4 (06:14→23:55)
[2022-06-06] MEDS: INSULIN SLIDING SCALE (NOVOLOG) 1 VIAL SQ SCH ×4 (06:14→21:12)
[2022-06-06 07:09] LABS: HEMATOCRIT 29.5 % (32.4-45.2); MCH 28.7 pg (25.7-33.7); MCHC 30.4 g/dl (32.0-36.0); MEAN CELL VOLUME 94.5 fl (80-96); MEAN PLT VOLUME 8.4 fl (7.5-11.1); PLATELET COUNT 139 10^3/uL (134-434); RBC 3.13 M/mm3 (3.60-5.2); RDW 17.3 % (11.6-15.6); WHITE BLOOD COUNT 12.4 K/mm3 (4.0-10.0)
[2022-06-06 07:31] LABS: CHLORIDE 94 mmol/L (98-107); SODIUM 130 mmol/L (136-145)
[2022-06-06 07:36] LABS: ALBUMIN 1.3 g/dl (3.4-5.0); ANION GAP 14 MMOL/L (8-16); CALCIUM 8.2 mg/dL (8.5-10.1); CO2 22 mmol/L (21-32); GLUCOSE,RANDOM 224 mg/dL (74-106); MAGNESIUM 2.1 mg/dL (1.8-2.4)
[2022-06-06 07:37] LABS: BLOOD UREA NITROGEN 63.7 mg/dL (7-18)
[2022-06-06 07:39] LABS: CREATININE 2.1 mg/dL (0.55-1.3); SGPT/ALT < 6 U/L (13-61)
[2022-06-06 07:40] LABS: SGOT/AST 12 U/L (15-37)
[2022-06-06 07:41] LABS: BILIRUBIN,TOTAL 0.9 mg/dL (0.2-1); TOT PROT 4.1 g/dl (6.4-8.2)
[2022-06-06] MEDS: HYDROmorphone HCl 2 MG/ML VIAL IVPUSH PRN ×3 (07:44→18:00)
[2022-06-06 07:53] LABS: ALK PHOS 406 U/L (45-117); PHOSPHOROUS 1.1 mg/dL (2.5-4.9)
[2022-06-06] MEDS ORDERED: EPOETIN ALFA-EPBX 10,000 UNIT/ML VIAL IVPUSH ONE (08:00)
[2022-06-06] MEDS: MUPIROCIN 2% TOPICAL OINTMENT FOR DECOLONIZATION NS SCH ×2 (09:09→21:12)
[2022-06-06] MEDS: FLUDROCORTISONE ACETATE 0.1 MG TABLET (FP) PO SCH (09:09)
[2022-06-06] MEDS: HEPARIN NA (PORCINE) 5,000 UNITS/ML 1ML VIAL SQ SCH ×2 (09:09→21:11)
[2022-06-06] MEDS: MIDODRINE HCL 5 MG TABLET PO SCH ×3 (10:00→17:24)
[2022-06-06] MEDS ORDERED: NAPH,MB-DB/K PH,MBDB POWDER PACKET PO ONE (10:57)
[2022-06-06] MEDS ORDERED: DAPTOMYCIN 600 MG in SODIUM CHLORIDE 50 ML IVPB ONE (11:00)
[2022-06-06] MEDS: LEVOTHYROXINE SODIUM 100 MCG/ML 1 ML VIAL IVPUSH SCH (11:19)
[2022-06-06] MEDS ORDERED: ALPRAZolam 0.25 MG TABLET PO ONE (11:20)
[2022-06-06] MEDS ORDERED: hydrOXYzine PAMOATE 25 MG CAPSULE (FP) PO ONE (16:33)
[2022-06-06] MEDS: CEFTAZIDIME/AVIBACTAM 0.94 GM in DEXTROSE 5%-WATER - 250 ML IVPB SCH (16:34)
[2022-06-06] MEDS: MELATONIN 5 MG TABLETS PO PRN (21:11)
[2022-06-06] MEDS: FAT EMUL/SOY/MCT/OLIV/FISH OIL 250 ML IV SCH (21:12)
[2022-06-06] MEDS: VASOPRESSIN 40 UNITS/100 ML BAG IV SCH (21:12)
[2022-06-06] MEDS: CHLORHEXIDINE GLUCONATE 4% CLEANSER FOR DECOLONIZATION TP SCH (21:12)
[2022-06-06] MEDS ORDERED: QUEtiapine FUMARATE 400 MG TABLET PO ONE (22:00)
[2022-06-06] MEDS ORDERED: QUEtiapine FUMARATE 200 MG TABLET PO ONE (22:00)
[2022-06-06] MEDS: AMINO ACIDS 4.25%/D5W 1,000 ML IV SCH (23:00)
[2022-06-07] MEDS: HYDROCORTISONE SOD SUCCINATE 100 MG/2 ML VIAL IVPUSH SCH ×4 (01:13→17:00)
[2022-06-07] MEDS: AMINO ACIDS 4.25%/D5W 1,000 ML IV SCH ×2 (01:13→11:02)
[2022-06-07] MEDS: INSULIN SLIDING SCALE (NOVOLOG) 1 VIAL SQ SCH ×4 (06:24→22:12)
[2022-06-07 08:09] LABS: HEMATOCRIT 34.4 % (32.4-45.2); HEMOGLOBIN 10.3 GM/dL (10.7-15.3); MCH 28.8 pg (25.7-33.7); MEAN CELL VOLUME 95.8 fl (80-96); MEAN PLT VOLUME 9.4 fl (7.5-11.1); PLATELET COUNT 134 10^3/uL (134-434); RBC 3.59 M/mm3 (3.60-5.2); RDW 17.1 % (11.6-15.6); WHITE BLOOD COUNT 12.3 K/mm3 (4.0-10.0)
[2022-06-07 08:25] LABS: CHLORIDE 98 mmol/L (98-107); SODIUM 135 mmol/L (136-145)
[2022-06-07 08:39] LABS: ANION GAP 14 MMOL/L (8-16); CO2 23 mmol/L (21-32); GLUCOSE,RANDOM 180 mg/dL (74-106)
[2022-06-07 08:42] LABS: ALBUMIN 1.5 g/dl (3.4-5.0); BLOOD UREA NITROGEN 45.7 mg/dL (7-18); CALCIUM 8.2 mg/dL (8.5-10.1); CREATININE 1.5 mg/dL (0.55-1.3); SGOT/AST 11 U/L (15-37); SGPT/ALT 8 U/L (13-61); TOT PROT 4.8 g/dl (6.4-8.2)
[2022-06-07 08:44] LABS: BILIRUBIN,TOTAL 0.7 mg/dL (0.2-1)
[2022-06-07 08:59] LABS: ALK PHOS 452 U/L (45-117); PHOSPHOROUS 0.4 mg/dL (2.5-4.9)
[2022-06-07] MEDS: FLUDROCORTISONE ACETATE 0.1 MG TABLET (FP) PO SCH (09:23)
[2022-06-07] MEDS: HEPARIN NA (PORCINE) 5,000 UNITS/ML 1ML VIAL SQ SCH ×2 (09:23→21:18)
[2022-06-07] MEDS: MUPIROCIN 2% TOPICAL OINTMENT FOR DECOLONIZATION NS SCH (09:23)
[2022-06-07] MEDS: MIDODRINE HCL 5 MG TABLET PO SCH ×3 (09:23→17:00)
[2022-06-07] MEDS: LEVOTHYROXINE SODIUM 100 MCG/ML 1 ML VIAL IVPUSH SCH (09:23)
[2022-06-07] MEDS: CEFTAZIDIME/AVIBACTAM 0.94 GM in DEXTROSE 5%-WATER - 250 ML IVPB SCH (15:00)
[2022-06-07] MEDS: LORazepam 2 MG/ML SDV VIAL IVPUSH SCH ×2 (15:40→21:20)
[2022-06-07] MEDS: NAPH,MB-DB/K PH,MBDB POWDER PACKET PO SCH ×2 (16:19→21:18)
[2022-06-07] MEDS: THIAMINE HCL 200 MG/2 ML VIAL IVPB SCH (16:19)
[2022-06-07] MEDS ORDERED: CALCITRIOL 0.25 MCG CAPSULE (FP) PO ONE ×2 (16:53→18:15)
[2022-06-07] MEDS: QUEtiapine FUMARATE 100 MG TABLET (FP) PO SCH (21:19)
[2022-06-07] MEDS: VASOPRESSIN 40 UNITS/100 ML BAG IV SCH (21:26)
[2022-06-07] MEDS: CHLORHEXIDINE GLUCONATE 4% CLEANSER FOR DECOLONIZATION TP SCH (21:27)
[2022-06-07] MEDS: FAT EMUL/SOY/MCT/OLIV/FISH OIL 250 ML IV SCH (22:10)
[2022-06-08] MEDS: HYDROCORTISONE SOD SUCCINATE 100 MG/2 ML VIAL IVPUSH SCH ×4 (01:52→18:02)
[2022-06-08] MEDS: LORazepam 2 MG/ML SDV VIAL IVPUSH SCH ×4 (03:50→22:07)
[2022-06-08] MEDS: NAPH,MB-DB/K PH,MBDB POWDER PACKET PO SCH ×3 (07:02→22:07)
[2022-06-08] MEDS: INSULIN SLIDING SCALE (NOVOLOG) 1 VIAL SQ SCH ×4 (07:07→22:17)
[2022-06-08] MEDS ORDERED: SODIUM CHLORIDE 250 ML IV PRN (08:15)
[2022-06-08] MEDS ORDERED: EPOETIN ALFA-EPBX 10,000 UNIT/ML VIAL SQ ONE (09:00)
[2022-06-08 09:13] LABS: HEMATOCRIT 31.3 % (32.4-45.2); HEMOGLOBIN 9.5 GM/dL (10.7-15.3); MCH 28.9 pg (25.7-33.7); MCHC 30.4 g/dl (32.0-36.0); MEAN PLT VOLUME 9.2 fl (7.5-11.1); PLATELET COUNT 129 10^3/uL (134-434); WHITE BLOOD COUNT 14.4 K/mm3 (4.0-10.0)
[2022-06-08 09:43] LABS: CHLORIDE 98 mmol/L (98-107); SODIUM 131 mmol/L (136-145)
[2022-06-08 09:46] LABS: ALBUMIN 1.3 g/dl (3.4-5.0); ANION GAP 15 MMOL/L (8-16); BLOOD UREA NITROGEN 57.5 mg/dL (7-18); CALCIUM 7.6 mg/dL (8.5-10.1); CO2 19 mmol/L (21-32); GLUCOSE,RANDOM 188 mg/dL (74-106); MAGNESIUM 1.8 mg/dL (1.8-2.4)
[2022-06-08 09:48] LABS: SGOT/AST 13 U/L (15-37); SGPT/ALT < 6 U/L (13-61)
[2022-06-08 09:50] LABS: CREATININE 1.7 mg/dL (0.55-1.3)
[2022-06-08 09:51] LABS: BILIRUBIN,TOTAL 0.7 mg/dL (0.2-1); TOT PROT 4.3 g/dl (6.4-8.2)
[2022-06-08 10:01] LABS: ALK PHOS 371 U/L (45-117); PHOSPHOROUS 1.1 mg/dL (2.5-4.9)
[2022-06-08] MEDS: MIDODRINE HCL 5 MG TABLET PO SCH ×3 (10:03→18:02)
[2022-06-08] MEDS: LEVOTHYROXINE SODIUM 100 MCG/ML 1 ML VIAL IVPUSH SCH (10:03)
[2022-06-08] MEDS: THIAMINE HCL 200 MG/2 ML VIAL IVPB SCH (10:03)
[2022-06-08] MEDS: HEPARIN NA (PORCINE) 5,000 UNITS/ML 1ML VIAL SQ SCH ×2 (10:03→22:14)
[2022-06-08] MEDS: CEFTAZIDIME/AVIBACTAM 0.94 GM in DEXTROSE 5%-WATER - 250 ML IVPB SCH (16:12)
[2022-06-08] MEDS ORDERED: DAPTOMYCIN 600 MG in SODIUM CHLORIDE 50 ML IVPB ONE (18:30)
[2022-06-08] MEDS: CALCITRIOL 0.25 MCG CAPSULE (FP) PO SCH (19:17)
[2022-06-08] MEDS: VASOPRESSIN 40 UNITS/100 ML BAG IV SCH (21:56)
[2022-06-08] MEDS: CHLORHEXIDINE GLUCONATE 4% CLEANSER FOR DECOLONIZATION TP SCH (21:57)
[2022-06-08] MEDS: QUEtiapine FUMARATE 100 MG TABLET (FP) PO SCH (22:07)
[2022-06-08] MEDS: AMINO ACIDS 4.25%/D5W 1,000 ML IV SCH (22:07)
[2022-06-08] MEDS: FAT EMUL/SOY/MCT/OLIV/FISH OIL 250 ML IV SCH (23:31)
[2022-06-09] MEDS: HYDROCORTISONE SOD SUCCINATE 100 MG/2 ML VIAL IVPUSH SCH ×4 (00:37→17:29)
[2022-06-09] MEDS: LORazepam 2 MG/ML SDV VIAL IVPUSH SCH ×4 (03:00→21:30)
[2022-06-09] MEDS: INSULIN SLIDING SCALE (NOVOLOG) 1 VIAL SQ SCH ×4 (07:38→21:32)
[2022-06-09] MEDS: NAPH,MB-DB/K PH,MBDB POWDER PACKET PO SCH ×2 (07:57→16:13)
[2022-06-09] MEDS ORDERED: LEVOTHYROXINE SODIUM 100 MCG/ML 1 ML VIAL IVPUSH SCH (10:00)
[2022-06-09] MEDS: HEPARIN NA (PORCINE) 5,000 UNITS/ML 1ML VIAL SQ SCH ×2 (10:59→21:30)
[2022-06-09] MEDS: MIDODRINE HCL 5 MG TABLET PO SCH ×3 (12:24→17:30)
[2022-06-09] MEDS: CALCITRIOL 0.25 MCG CAPSULE (FP) PO SCH (12:27)
[2022-06-09] MEDS: AMINO ACIDS 4.25%/D5W 1,000 ML IV SCH (16:12)
[2022-06-09] MEDS: THIAMINE HCL 200 MG/2 ML VIAL IVPB SCH (16:13)
[2022-06-09] MEDS: CEFTAZIDIME/AVIBACTAM 0.94 GM in DEXTROSE 5%-WATER - 250 ML IVPB SCH (16:14)
[2022-06-09] MEDS ORDERED: SODIUM CHLORIDE 250 ML IV PRN (16:44)
[2022-06-10] MEDS: FAT EMUL/SOY/MCT/OLIV/FISH OIL 250 ML IV SCH ×2 (00:11→23:00)
[2022-06-10] MEDS: HYDROCORTISONE SOD SUCCINATE 100 MG/2 ML VIAL IVPUSH SCH ×3 (00:11→18:28)
[2022-06-10] MEDS: QUEtiapine FUMARATE 100 MG TABLET (FP) PO SCH (00:12)
[2022-06-10] MEDS: AMINO ACIDS 4.25%/D5W 1,000 ML IV SCH ×2 (00:26→10:10)
[2022-06-10] MEDS: LORazepam 2 MG/ML SDV VIAL IVPUSH SCH ×3 (03:11→16:00)
[2022-06-10] MEDS ORDERED: THIAMINE HCL 200 MG/2 ML VIAL IVPB SCH (10:00)
[2022-06-10] MEDS: INSULIN SLIDING SCALE (NOVOLOG) 1 VIAL SQ SCH ×3 (10:11→18:29)
[2022-06-10] MEDS: AMINO ACIDS/PROTEIN HYDROLYS 30 ML LIQUID.PKT PO SCH ×2 (10:11→18:16)
[2022-06-10] MEDS: LEVOTHYROXINE SODIUM 100 MCG 5 ML VIAL IVPUSH SCH (10:14)
[2022-06-10] MEDS: CALCITRIOL 0.25 MCG CAPSULE (FP) PO SCH (10:15)
[2022-06-10] MEDS: HEPARIN NA (PORCINE) 5,000 UNITS/ML 1ML VIAL SQ SCH (10:17)
[2022-06-10] MEDS: MIDODRINE HCL 5 MG TABLET PO SCH ×3 (10:18→18:19)
[2022-06-10] MEDS ORDERED: SODIUM CHLORIDE 250 ML IV PRN (15:17)
[2022-06-10] MEDS: CEFTAZIDIME/AVIBACTAM 0.94 GM in DEXTROSE 5%-WATER - 250 ML IVPB SCH (15:30)
[2022-06-10] MEDS ORDERED: DAPTOMYCIN 600 MG in SODIUM CHLORIDE 50 ML IVPB ONE (17:00)
[2022-06-10] MEDS ORDERED: EPOETIN ALFA-EPBX 10,000 UNIT/ML VIAL SQ ONE (17:00)
[2022-06-11] MEDS: HYDROCORTISONE SOD SUCCINATE 100 MG/2 ML VIAL IVPUSH SCH ×5 (01:05→19:38)
[2022-06-11] MEDS: AMINO ACIDS 4.25%/D5W 1,000 ML IV SCH ×5 (01:05→19:40)
[2022-06-11] MEDS: LORazepam 2 MG/ML SDV VIAL IVPUSH SCH ×5 (01:06→21:36)
[2022-06-11] MEDS: QUEtiapine FUMARATE 100 MG TABLET (FP) PO SCH ×2 (01:08→21:35)
[2022-06-11] MEDS: HEPARIN NA (PORCINE) 5,000 UNITS/ML 1ML VIAL SQ SCH ×3 (01:08→21:35)
[2022-06-11] MEDS: INSULIN SLIDING SCALE (NOVOLOG) 1 VIAL SQ SCH ×5 (01:34→23:02)
[2022-06-11] MEDS: LEVOTHYROXINE SODIUM 100 MCG 5 ML VIAL IVPUSH SCH (09:27)
[2022-06-11] MEDS: CALCITRIOL 0.25 MCG CAPSULE (FP) PO SCH (09:32)
[2022-06-11] MEDS: AMINO ACIDS/PROTEIN HYDROLYS 30 ML LIQUID.PKT PO SCH ×2 (09:33→17:18)
[2022-06-11] MEDS: NAPH,MB-DB/K PH,MBDB POWDER PACKET PO SCH (10:03)
[2022-06-11] MEDS: MIDODRINE HCL 5 MG TABLET PO SCH ×3 (11:07→17:20)
[2022-06-11] MEDS: CEFTAZIDIME/AVIBACTAM 0.94 GM in DEXTROSE 5%-WATER - 250 ML IVPB SCH (15:31)
[2022-06-11] MEDS: MELATONIN 5 MG TABLETS PO PRN (21:35)
[2022-06-12] MEDS: HYDROCORTISONE SOD SUCCINATE 100 MG/2 ML VIAL IVPUSH SCH ×4 (00:33→17:18)
[2022-06-12] MEDS: LORazepam 2 MG/ML SDV VIAL IVPUSH SCH ×4 (04:11→22:36)
[2022-06-12] MEDS: INSULIN SLIDING SCALE (NOVOLOG) 1 VIAL SQ SCH ×4 (06:57→22:00)
[2022-06-12] MEDS: AMINO ACIDS/PROTEIN HYDROLYS 30 ML LIQUID.PKT PO SCH ×2 (08:15→17:15)
[2022-06-12] MEDS: LEVOTHYROXINE SODIUM 100 MCG 5 ML VIAL IVPUSH SCH (10:14)
[2022-06-12] MEDS: HEPARIN NA (PORCINE) 5,000 UNITS/ML 1ML VIAL SQ SCH ×2 (10:15→22:36)
[2022-06-12] MEDS: NAPH,MB-DB/K PH,MBDB POWDER PACKET PO SCH (10:15)
[2022-06-12] MEDS: MIDODRINE HCL 5 MG TABLET PO SCH ×3 (10:16→17:17)
[2022-06-12] MEDS: CALCITRIOL 0.25 MCG CAPSULE (FP) PO SCH (10:17)
[2022-06-12] MEDS ORDERED: SODIUM CHLORIDE 250 ML IV PRN (14:01)
[2022-06-12] MEDS: CEFTAZIDIME/AVIBACTAM 0.94 GM in DEXTROSE 5%-WATER - 250 ML IVPB SCH (15:06)
[2022-06-12] MEDS: QUEtiapine FUMARATE 100 MG TABLET (FP) PO SCH (22:36)
[2022-06-13] MEDS: LORazepam 2 MG/ML SDV VIAL IVPUSH SCH ×4 (05:05→22:15)
[2022-06-13] MEDS: HYDROCORTISONE SOD SUCCINATE 100 MG/2 ML VIAL IVPUSH SCH ×4 (05:17→17:42)
[2022-06-13] MEDS: INSULIN SLIDING SCALE (NOVOLOG) 1 VIAL SQ SCH ×4 (07:04→22:18)
[2022-06-13] MEDS: CALCITRIOL 0.25 MCG CAPSULE (FP) PO SCH (09:45)
[2022-06-13] MEDS: MIDODRINE HCL 5 MG TABLET PO SCH ×3 (09:45→17:42)
[2022-06-13] MEDS: HEPARIN NA (PORCINE) 5,000 UNITS/ML 1ML VIAL SQ SCH ×2 (09:45→22:18)
[2022-06-13] MEDS: LEVOTHYROXINE SODIUM 100 MCG 5 ML VIAL IVPUSH SCH (09:45)
[2022-06-13] MEDS: NAPH,MB-DB/K PH,MBDB POWDER PACKET PO SCH (09:45)
[2022-06-13] MEDS: AMINO ACIDS/PROTEIN HYDROLYS 30 ML LIQUID.PKT PO SCH ×3 (09:46→17:06)
[2022-06-13 14:40] LABS: HEMATOCRIT 31.7 % (32.4-45.2); HEMOGLOBIN 9.5 GM/dL (10.7-15.3); MCH 28.7 pg (25.7-33.7); MEAN CELL VOLUME 95.6 fl (80-96); MEAN PLT VOLUME 9.1 fl (7.5-11.1); PLATELET COUNT 191 10^3/uL (134-434); RBC 3.32 M/mm3 (3.60-5.2); WHITE BLOOD COUNT 13.7 K/mm3 (4.0-10.0)
[2022-06-13] MEDS: CEFTAZIDIME/AVIBACTAM 0.94 GM in DEXTROSE 5%-WATER - 250 ML IVPB SCH (14:48)
[2022-06-13 14:59] LABS: CALCIUM 7.3 mg/dL (8.5-10.1)
[2022-06-13 15:00] LABS: ALBUMIN 1.4 g/dl (3.4-5.0); BLOOD UREA NITROGEN 63.8 mg/dL (7-18)
[2022-06-13 15:04] LABS: BILIRUBIN,TOTAL 0.6 mg/dL (0.2-1)
[2022-06-13 15:05] LABS: TOT PROT 4.1 g/dl (6.4-8.2)
[2022-06-13] MEDS: QUEtiapine FUMARATE 100 MG TABLET (FP) PO SCH (22:16)
[2022-06-14] MEDS: HYDROCORTISONE SOD SUCCINATE 100 MG/2 ML VIAL IVPUSH SCH ×2 (00:20→05:48)
[2022-06-14] MEDS: LORazepam 2 MG/ML SDV VIAL IVPUSH SCH ×4 (05:49→22:17)
[2022-06-14] MEDS: INSULIN SLIDING SCALE (NOVOLOG) 1 VIAL SQ SCH ×4 (06:07→22:03)
[2022-06-14] MEDS: AMINO ACIDS/PROTEIN HYDROLYS 30 ML LIQUID.PKT PO SCH ×2 (09:09→17:19)
[2022-06-14] MEDS: CALCITRIOL 0.25 MCG CAPSULE (FP) PO SCH (09:10)
[2022-06-14] MEDS: NAPH,MB-DB/K PH,MBDB POWDER PACKET PO SCH (09:10)
[2022-06-14] MEDS: HEPARIN NA (PORCINE) 5,000 UNITS/ML 1ML VIAL SQ SCH ×2 (09:10→22:17)
[2022-06-14] MEDS: MIDODRINE HCL 5 MG TABLET PO SCH (09:10)
[2022-06-14] MEDS: LEVOTHYROXINE SODIUM 100 MCG 5 ML VIAL IVPUSH SCH (09:10)
[2022-06-14] MEDS ORDERED: morphine SULFATE 4 MG/ML VIAL IVPUSH PRN (13:29)
[2022-06-14] MEDS ORDERED: MIDODRINE HCL 5 MG TABLET PO SCH (14:00)
[2022-06-14] MEDS ORDERED: MIDODRINE HCL 2.5 MG TABLET PO SCH (17:34)
[2022-06-14] MEDS: QUEtiapine FUMARATE 100 MG TABLET (FP) PO SCH (22:16)
[2022-06-14] MEDS: morphine SO4 SUSTAINED ACTING 15 MG TABLET.SA PO SCH (22:16)
[2022-06-14] MEDS: QUEtiapine FUMARATE 200 MG TABLET PO SCH (23:00)
[2022-06-15] MEDS: LORazepam 2 MG/ML SDV VIAL IVPUSH SCH ×4 (05:00→22:16)
[2022-06-15] MEDS: INSULIN SLIDING SCALE (NOVOLOG) 1 VIAL SQ SCH ×4 (06:02→22:17)
[2022-06-15] MEDS: AMINO ACIDS/PROTEIN HYDROLYS 30 ML LIQUID.PKT PO SCH ×2 (09:16→18:10)
[2022-06-15] MEDS: morphine SO4 SUSTAINED ACTING 15 MG TABLET.SA PO SCH ×2 (10:12→22:15)
[2022-06-15] MEDS: HEPARIN NA (PORCINE) 5,000 UNITS/ML 1ML VIAL SQ SCH (10:13)
[2022-06-15] MEDS: NAPH,MB-DB/K PH,MBDB POWDER PACKET PO SCH (10:13)
[2022-06-15] MEDS: LEVOTHYROXINE SODIUM 100 MCG 5 ML VIAL IVPUSH SCH (10:14)
[2022-06-15] MEDS: CALCITRIOL 0.25 MCG CAPSULE (FP) PO SCH (10:14)
[2022-06-15] MEDS: MIDODRINE HCL 5 MG, MIDODRINE HCL 2.5 MG PO SCH ×3 (10:15→18:16)
[2022-06-15] MEDS ORDERED: SODIUM CHLORIDE 250 ML IV PRN (13:27)
[2022-06-15 13:38] LABS: HEMATOCRIT 24.3 % (32.4-45.2); HEMOGLOBIN 7.5 GM/dL (10.7-15.3); MCH 29.3 pg (25.7-33.7); MCHC 30.6 g/dl (32.0-36.0); MEAN CELL VOLUME 95.7 fl (80-96); MEAN PLT VOLUME 8.3 fl (7.5-11.1); PLATELET COUNT 134 10^3/uL (134-434); RBC 2.54 M/mm3 (3.60-5.2); RDW 19.9 % (11.6-15.6)
[2022-06-15] MEDS ORDERED: EPOETIN ALFA-EPBX 4,000 UNIT/ML VIAL IVPUSH ONE (14:00)
[2022-06-15] MEDS: POLYETHYLENE GLYCOL (HEALTHYLAX) 3350 17 GM PACKET PO SCH ×2 (14:09→22:16)
[2022-06-15] MEDS ORDERED: IRON SUCROSE INJECTION 200 MG in SODIUM CHLORIDE 90 ML IVPB ONE (20:30)
[2022-06-15] MEDS: QUEtiapine FUMARATE 200 MG TABLET PO SCH (22:15)
[2022-06-15] MEDS: MELATONIN 5 MG TABLETS PO PRN (22:15)
[2022-06-16] MEDS: LORazepam 2 MG/ML SDV VIAL IVPUSH SCH ×4 (05:00→22:37)
[2022-06-16] MEDS: POLYETHYLENE GLYCOL (HEALTHYLAX) 3350 17 GM PACKET PO SCH ×3 (05:45→22:39)
[2022-06-16] MEDS: INSULIN SLIDING SCALE (NOVOLOG) 1 VIAL SQ SCH ×4 (06:12→22:45)
[2022-06-16] MEDS: AMINO ACIDS/PROTEIN HYDROLYS 30 ML LIQUID.PKT PO SCH ×2 (07:57→17:19)
[2022-06-16] MEDS: LEVOTHYROXINE SODIUM 100 MCG 5 ML VIAL IVPUSH SCH (09:58)
[2022-06-16] MEDS: clonazePAM 0.5 MG TABLET PO PRN (09:59)
[2022-06-16] MEDS: morphine SO4 SUSTAINED ACTING 15 MG TABLET.SA PO SCH ×2 (09:59→22:38)
[2022-06-16] MEDS: NAPH,MB-DB/K PH,MBDB POWDER PACKET PO SCH (10:00)
[2022-06-16] MEDS: MIDODRINE HCL 5 MG, MIDODRINE HCL 2.5 MG PO SCH ×3 (10:00→17:19)
[2022-06-16] MEDS: CALCITRIOL 0.25 MCG CAPSULE (FP) PO SCH (11:33)
[2022-06-16] MEDS ORDERED: LEVOTHYROXINE NA 25 MCG TABLET (FP) PO ONE (11:53)
[2022-06-16 13:46] VITALS: BMI 23.1
[2022-06-16] MEDS ORDERED: ACETAMINOPHEN 1000 MG/100 ML BAG IVPB PRN (17:56)
[2022-06-16] MEDS: QUEtiapine FUMARATE 200 MG TABLET PO SCH (22:38)
[2022-06-17] MEDS: clonazePAM 0.5 MG TABLET PO PRN (01:47)
[2022-06-17] MEDS: LORazepam 2 MG/ML SDV VIAL IVPUSH SCH ×2 (04:55→10:25)
[2022-06-17] MEDS: INSULIN SLIDING SCALE (NOVOLOG) 1 VIAL SQ SCH ×4 (06:31→22:35)
[2022-06-17] MEDS: LEVOTHYROXINE NA 25 MCG TABLET (FP) PO SCH (06:32)
[2022-06-17] MEDS: POLYETHYLENE GLYCOL (HEALTHYLAX) 3350 17 GM PACKET PO SCH ×3 (06:32→22:29)
[2022-06-17] MEDS: AMINO ACIDS/PROTEIN HYDROLYS 30 ML LIQUID.PKT PO SCH ×3 (08:00→18:16)
[2022-06-17] MEDS: NAPH,MB-DB/K PH,MBDB POWDER PACKET PO SCH (10:43)
[2022-06-17] MEDS: morphine SO4 SUSTAINED ACTING 15 MG TABLET.SA PO SCH ×2 (10:43→22:28)
[2022-06-17] MEDS: CALCITRIOL 0.25 MCG CAPSULE (FP) PO SCH (10:44)
[2022-06-17] MEDS: MIDODRINE HCL 5 MG, MIDODRINE HCL 2.5 MG PO SCH ×3 (10:44→18:17)
[2022-06-17 12:37] LABS: HEMATOCRIT 22.5 % (32.4-45.2); MCH 29.6 pg (25.7-33.7); MCHC 30.8 g/dl (32.0-36.0); MEAN CELL VOLUME 96.2 fl (80-96); MEAN PLT VOLUME 7.9 fl (7.5-11.1); PLATELET COUNT 96 10^3/uL (134-434); RBC 2.34 M/mm3 (3.60-5.2); RDW 20.4 % (11.6-15.6); WHITE BLOOD COUNT 4.3 K/mm3 (4.0-10.0)
[2022-06-17 12:42] LABS: HEMOGLOBIN 6.9 GM/dL (10.7-15.3)
[2022-06-17] MEDS ORDERED: SODIUM CHLORIDE 250 ML IV PRN (13:16)
[2022-06-17 13:54] LABS: BLOOD UREA NITROGEN 41.2 mg/dL (7-18)
[2022-06-17 13:57] LABS: CREATININE 1.7 mg/dL (0.55-1.3)
[2022-06-17] MEDS ORDERED: EPOETIN ALFA-EPBX 10,000 UNIT/ML VIAL SQ ONE (14:00)
[2022-06-17] MEDS: QUEtiapine FUMARATE 200 MG TABLET PO SCH (22:28)
[2022-06-18] MEDS: INSULIN SLIDING SCALE (NOVOLOG) 1 VIAL SQ SCH ×2 (06:30→11:14)
[2022-06-18] MEDS: POLYETHYLENE GLYCOL (HEALTHYLAX) 3350 17 GM PACKET PO SCH (06:35)
[2022-06-18] MEDS: LEVOTHYROXINE NA 25 MCG TABLET (FP) PO SCH (06:35)
[2022-06-18] MEDS: AMINO ACIDS/PROTEIN HYDROLYS 30 ML LIQUID.PKT PO SCH (08:16)
[2022-06-18] MEDS: MIDODRINE HCL 5 MG, MIDODRINE HCL 2.5 MG PO SCH (09:52)
[2022-06-18] MEDS: clonazePAM 0.5 MG TABLET PO PRN (09:52)
[2022-06-18] MEDS: NAPH,MB-DB/K PH,MBDB POWDER PACKET PO SCH (09:52)
[2022-06-18] MEDS: CALCITRIOL 0.25 MCG CAPSULE (FP) PO SCH (09:53)
[2022-06-18] MEDS: morphine SO4 SUSTAINED ACTING 15 MG TABLET.SA PO SCH (09:53)
[2022-06-18 12:09] VITALS: BP 124/72; PULSE 110; RESP 20; TEMP 97.8
== END 2022-06-18 12:21 | DRG 871 ==
LOC: JER 02:16 → JERBED 06:25 → JICU 13:04 → J6W 06-09 00:32 → J6S 06-10 15:49
PROVIDERS: ADMIT Internal Medicine; ATTEND Internal Medicine
PROC: 4A133B1 Monitoring of Arterial Pressure, Peripheral, Percutaneous Approach (ICD-10-PCS; principal; 2022-06-02)
PROC: 4A133J1 Monitoring of Arterial Pulse, Peripheral, Percutaneous Approach (ICD-10-PCS; 2022-06-02)
PROC: 05HM33Z Insertion of Infusion Device into Right Internal Jugular Vein, Percutaneous Approach (ICD-10-PCS; 2022-06-02)
PROC: B543ZZA Ultrasonography of Right Jugular Veins, Guidance (ICD-10-PCS; 2022-06-02)
PROC: 0D9P70Z Drainage of Rectum with Drainage Device, Via Natural or Artificial Opening (ICD-10-PCS; 2022-06-02)
PROC: 30233N1 Transfusion of Nonautologous Red Blood Cells into Peripheral Vein, Percutaneous Approach (ICD-10-PCS; 2022-06-17)
PROC: 5A1D70Z Performance of Urinary Filtration, Intermittent, Less than 6 Hours Per Day (ICD-10-PCS; 2022-06-17)
DX: A41.9 Sepsis, unspecified organism (principal); E43 Unspecified severe protein-calorie malnutrition; L89.154 Pressure ulcer of sacral region, stage 4; N18.6 End stage renal disease; R65.21 Severe sepsis with septic shock; I12.0 Hypertensive chronic kidney disease with stage 5 chronic kidney disease or end stage renal disease; J98.11 Atelectasis; J90 Pleural effusion, not elsewhere classified; G82.20 Paraplegia, unspecified; K59.39 Other megacolon; R64 Cachexia; E03.9 Hypothyroidism, unspecified; F31.9 Bipolar disorder, unspecified; Z68.23 Body mass index [BMI] 23.0-23.9, adult; E83.39 Other disorders of phosphorus metabolism; D64.9 Anemia, unspecified; E78.5 Hyperlipidemia, unspecified; D69.6 Thrombocytopenia, unspecified; K56.41 Fecal impaction; K21.9 Gastro-esophageal reflux disease without esophagitis
CPT/HCPCS: 0241U-QW; 36415; 36430; 36600; 71045-TC-FY; 74018-TC-FY; 74176-TC; 80048; 80053; 81003; 82308; 82550; 82803; 82962; 83605; 83690; 83735; 84100; 84436; 84443; 84484; 85025; 85027; 85610; 85730; 86140; 86803; 86850; 86900; 86901; 86922; 87040; 87086; 87340; 93005; 93010; 93970-TC; 99291; C9803-CS; J0878; J1644; J3490; P9058; Q5106; U0003; U0005